=== PATIENT | female | born 1945 | race Caucasian/White ===

== ENCOUNTER 2016-07-20 15:21 | Inpatient (IN) | payer OTHER, MEDICARE ==
[2016-07-20] MEDS ORDERED: Aspirin Low Dose CHEW TAB* 81 MG PO ONE (16:25)
[2016-07-20 16:32] LABS: Hematocrit 42 % (35-47); Hemoglobin 13.8 g/dl (12.0-16.0); Mean Corpuscular HGB Conc 33 g/dl (31-36); Mean Corpuscular Hemoglobin 28 pg (27-31); Mean Corpuscular Volume 84 fL (80-97); Mean Platelet Volume 9 um3 (7.4-10.4); Red Blood Count 5.03 10^6/ul (4.0-5.4); Red Cell Distribution Width 14 % (10.5-15); White Blood Count 9.5 10^3/ul (3.5-10.8)
[2016-07-20 16:44] LABS: Albumin 4.2 g/dL (3.2-5.2); BUN/Creatinine Ratio 17.4 (8-20); Calcium 9.4 mg/dL (8.6-10.3); EGFR African American 84.1 (>60); EGFR Non-African American 65.4 (>60); Globulin 2.5 g/dL (2-4); Total Bilirubin 0.3 mg/dL (0.2-1.0); Total Protein 6.7 g/dL (6.4-8.9)
[2016-07-20 16:52] LABS: Potassium 3.6 mmol/L (3.5-5.0)
[2016-07-20 16:53] LABS: TSH (Thyroid Stimulating Horm) 1.66 mcIU/mL (0.34-5.60); Troponin I 0.06 ng/mL (<0.04)
--- NOTE | 2016-07-20 16:58 | RAD ---
HISTORY: Chest pain COMPARISONS: August 04, 2015 VIEWS:1: Single frontal portable view of the chest at 4:44 PM FINDINGS: LINES AND TUBES: None. CARDIOMEDIASTINAL SILHOUETTE: The cardiomediastinal silhouette is normal for portable technique. PLEURA: The costophrenic angles are sharp. No pleural abnormalities are noted. LUNG PARENCHYMA: There is hyperinflation. ABDOMEN: The upper abdomen is clear. There is no subphrenic gas. BONES AND SOFT TISSUES: No bone or soft tissue abnormalities are noted. IMPRESSION: NO ACTIVE CARDIOPULMONARY DISEASE.
[2016-07-20] MEDS ORDERED: Heparin DRIP 25,000 UNITS(*) 25,000 UNITS/500 ML BAG IVPB SCH (17:00)
[2016-07-20] MEDS ORDERED: Heparin VIAL(*) 5000 UNITS/ML VIAL (FIVE THOUSAND) IV SCH (17:00)
[2016-07-20] MEDS ORDERED: Nitroglycerin TAB 0.4 MG* 0.4 MG TAB SL ONE (17:16)
[2016-07-20] MEDS ORDERED: NS 0.9% 1000 ML* 1,000 ML IV ONE (17:17)
[2016-07-20] MEDS: Morphine INJ* 2 MG/ML 1 ML CARPUJECT IV PRN ×2 (18:16→23:32)
[2016-07-20] MEDS ORDERED: Nitroglycerin TAB 0.4 MG* 0.4 MG TAB SL PRN (18:22)
[2016-07-20] MEDS ORDERED: Metoprolol Tartrate TAB* 25 MG PO ONE (18:31)
[2016-07-20] MEDS ORDERED: diPHENhydraMINE PO* 25 MG PO PRN (18:43)
[2016-07-20] MEDS ORDERED: ALPRAZolam TAB* 0.5 MG PO ONE (18:51)
[2016-07-20 19:40] LABS: Troponin I 0.06 ng/mL (<0.04)
--- NOTE | 2016-07-20 21:18 | HP ---
CC: Dr. Canas HISTORY AND PHYSICAL: DATE OF ADMISSION: 07/20/16 PRIMARY CARE PHYSICIAN: Dr. Canas. CHIEF COMPLAINT: Chest pain. HISTORY OF PRESENT ILLNESS: Ms. Louie is a 71-year-old female with a past medical history of GERD, asthma, anxiety, and depression who presents to the hospital with acute onset chest pain. The patie nt states she was in her normal state of physical health aside from some significant fatigue this mo rning and then around 3:15 p.m. had acute onset of chest pain. She states that she was at home and had finished a movie and got up to go outside to drive to her daughter's house. On the way of walki ng to the car, she felt sharp chest pain in the middle of her chest that radiated to the back. She attempted to drive to her daughter's house anyway and then she reported feeling nauseous and then so me blurry vision and just an overall weakness. She decided at that point to airplane coverer on the side o f the road. She called her younger daughter and then decided to drive herself to the emergency depa rtment. The patient denies diaphoresis; however, the nurse who saw her on admission states she was diaphoretic. She has had no emesis. She denies any shortness of breath, but feels that she has dif ficulty taking a deep breath because of the chest tightness. She states that she continues to have chest pain at present and also feels that her chest is very tight like a corset is being tightened. The chest pain is not reproducible and she cannot think of any alleviating or aggravating factors. She denies any recent fever, chills, abdominal pain, diarrhea, constipation, dysuria, cough, hematu flip, or bright red blood per rectum. She is a former smoker, still smokes e-cigarettes and her formerly [facility] er had a history of CAD and at the age of 74. The patient and her daughter volunteered the fac t that she has been under significant amount of new stress lately, as she just got fired from her [employer] of 20 plus years just 2 days ago. The patient also states she has significant stress at home as h er is an alcoholic and something happened this morning that was the reason she wanted to get out of the house. PAST MEDICAL HISTORY: 1. GERD. 2. Asthma. 3. Depression. 4. Anxiety. PAST SURGICAL HISTORY: 1. Acoustic neuroma resection. 2. Rotator cuff surgery. 3. Wrist surgery. 4. Knee surgery. HOME MEDICATIONS: 1. Xanax 0.25 mg by mouth daily. 2. Protonix 40 mg by mouth daily. 3. Sertraline 150 mg by mouth daily. ALLERGIES: OXYCODONE causes itching. FAMILY HISTORY: Significant for mother with cancer, father with CAD, sister with brain tumors. SOCIAL HISTORY: The patient has a [id number] smoking history. Now, just smokes e-cigarettes afte r quitting smoking tobacco 5 years ago. Rare alcohol use. Denies any illicit drug use. REVIEW OF SYSTEMS: A 12-point review of systems negative except for that as noted in the HPI. PHYSICAL EXAMINATION GENERAL: The patient is a middle-aged female lying in bed in moderate distress. VITAL SIGNS: On admission, temperature 98.9, heart rate of 88, respiratory rate of 18, O2 saturatio n 98% on room air, blood pressure 150/80 with subsequent pressures a bit lower. HEENT: Pupils equal, round, reactive to light and accommodation. Anicteric sclerae. Moist mucous membranes. NECK: No cervical adenopathy. CHEST: The patient had some mild rales in the bilateral bases. Otherwise clear. CARDIOVASCULAR: Regular rate and rhythm. S1 and S2 present. No murmurs, gallops, or rubs. The ciera villanueva does report some chest pain on palpation; however, this is separate from the chest pain she lynne s been experiencing. ABDOMEN: Soft, nontender, nondistended. Bowel sounds positive. EXTREMITIES: No cyanosis, clubbing, or edema. NEUROLOGIC: The patient is alert and oriented x3. Cranial nerves II through XII grossly intact. S ensation symmetric throughout bilaterally. The patient seems to have some mild weakness in the lowe r extremities, particularly hip flexors and hip extensors, although that seemed to be comparable in both legs. LABS AND DIAGNOSTICS: White blood cell count is 9.5, hematocrit of 42, platelets of 262. D-dimer was less than 200. Sodium 139, potassium of 3.6, chloride of 106, carbon dioxide of 25, BUN of 15, creatinine of 0.86, glucose of 122, lactic acid of 1.3, calcium of 9.4. LFTs within normal limits. Troponin of 0.06. CK of 41, CK- MB of 1.8, TSH of 1.66. EKG personally reviewed, did not appreciate any acute signs of ischemia. Sinus rhythm. Chest x-ray personally reviewed shows no acute disease. No widening of the mediastinum that I appre ciate. ASSESSMENT AND PLAN: Chest pain in a 71-year-old female with a past medical history of gastroesopha geal reflux disease, asthma, anxiety, and depression. 1. Chest pain: The patient received nitro x1 here in the emergency department without resolution o f her chest pain. I will write her for IV morphine and we will give another nitro. We will recheck an EKG now. I have added on CK and CK-MB, as noted above that are normal. We will continue to anisha nd the patient's troponins and monitor on telemetry. She was started on a heparin drip, which we wi ll continue for now. We will also start a beta josh. She received full-dose aspirin as well. W e will continue baby aspirin daily for now. With the pain radiating to the back, it brings us the p ossibility of acute aortic dissection; however, the patient has not been hypertensive. Her blood pr essures in both arms are comparable. She has a negative D-dimer and no widened mediastinum on chest x-ray. We will hold off on a CTA for now. This could potentially be pericarditis as well and also could just be stress induced as the patient seems to have significant amount of stress going on in her life and she says she is prone to anxiety attacks in the past; however, they are not normally li ke this. 2. Gastroesophageal reflux disease: Continue home Protonix. 3. Anxiety and depression: Continue home sertraline and Xanax. 4. DVT prophylaxis: IV heparin. 5. Code status: The patient is a full code. TIME SPENT: Total time spent on this admission, 55 minutes with over half the time spent face-to-fa ce with the patient in counseling and coordinating care. [id number]/[facility] #: [id number]
--- NOTE | 2016-07-20 23:26 | ED ---
Soha Aguiar Anna, scribed for Jaylen Chisholm MD on 07/20/16 at 1614 . HPI Chest Pain - HPI Summary HPI Summary: Patient is a 71 y/o female coming to [facility] presenting with sudden onset of right -sided chest pain that began today at 1500. The pain radiates to her neck and back on the right side. She was at rest at the onset of the symptoms. She has additionally experienced bilateral blurry vision, weakness, dry mouth, and nausea that began at the same time. The patient describes the chest pain as if being hit in the chest and of severity 8/10. She expresses SOB as a result of the chest tightness. The pain is exacerbated by sitting, which was not the case at the onset of the pain. It is also exacerbated by palpation. She denies emesis. The weakness was exacerbated when she walked from her car. Her history is significant for GERD and panic attacks, but these symptoms are not consistent with her previous diagnoses. - History of Current Complaint Chief Complaint: EDChestPainROMI Time Seen by Provider: 07/20/16 15:51 Hx Obtained From: Patient Pain Intensity: 8 Pain Scale Used: 0-10 Numeric - Allergy/Home Medications Allergies/Adverse Reactions: Allergies Allergy/AdvReac Type Severity Reaction Status Date / Time Oxycodone [From Oxycontin] Allergy SEVERE Verified 08/04/15 09:49 ITCHING Home Medications: Home Medications Sertraline* [Zoloft*] 150 mg PO DAILY 07/20/16 [History Confirmed 07/20/16] PMH/Surg Hx/FS Hx/Imm Hx Endocrine/Hematology History: Denies: Hx Anticoagulant Therapy, Hx Diabetes, Hx Thyroid Disease Cardiovascular History: Denies: Hx Hypertension, Hx Pacemaker/ICD, Other Cardiovascular Problems/ Disorders Respiratory History: Reports: Hx Asthma - PRN INHALER Denies: Hx Chronic Obstructive Pulmonary Disease (COPD), Other Respiratory Problems/Disorders GI History: Reports: Hx Gastroesophageal Reflux Disease Denies: Other GI Disorders History: Denies: Hx Renal Disease Musculoskeletal History: Reports: Hx Arthritis - LOWER BACK AND KNEES Sensory History: Denies: Hx Contacts or Glasses, 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 FOR ACOUSTIC NEUROMA. [facility] NE[facility]OMA REMOVED[place] [place]. 08/13/13 RT WRIST FRACTURE REPAIR WITH METAL. 12/29/13 - Rt RTC REPAIR Hx Anesthesia Reactions: No - Immunization History Date of Tetanus Vaccine: up to date Infectious Disease History: No Infectious Disease History: Denies: Hx Hepatitis, Hx Human Immunodeficiency Virus (HIV), Traveled Outside the [place] in Last 30 Days - Family History Known Family History: Positive: Cardiac Disease - Hx in father, Other - Hx peritoneal CA in mother - Social History Alcohol Use: Rare Alcohol Amount: 1-2 PER MONTH Substance Use Type: Reports: None Hx Tobacco Use: Yes - Uses "E-cigarette" Smoking Status (MU): Smoker, Current Status Unknown Type: eCigarettes Amount Used/How Often: 1/2-3/4 PPDX 30 YEARS OFF AND ON Have You Smoked in the Last Year: No Review of Systems Positive: Blurred Vision ENT: Other - dry mouth Positive: Chest Pain Positive: Shortness Of Breath - as a result of tightness in chest Positive: Nausea. Negative: Vomiting Positive: Weakness All Other Systems Reviewed And Are Negative: Yes Physical Exam Triage Information Reviewed: Yes Vital Signs On Initial Exam: Initial Vitals Temp Pulse Resp BP Pulse Ox 98.9 F 88 18 150/80 98 07/20/16 15:23 07/20/16 15:23 07/20/16 15:23 07/20/16 15:23 07/20/16 15:23 Vital Signs Reviewed: Yes Appearance: Positive: Well-Appearing, No Pain Distress Skin: Positive: Warm, Skin Color Reflects Adequate Perfusion, Dry Head/Face: Positive: Normal Head/Face Inspection Eyes: Positive: Normal ENT: Positive: Normal ENT inspection Neck: Positive: Supple, Nontender Respiratory/Lung Sounds: Positive: Clear to Auscultation, Breath Sounds Present Cardiovascular: Positive: RRR Abdomen Description: Positive: Nontender, Soft Bowel Sounds: Positive: Present Musculoskeletal: Positive: Normal Neurological: Positive: Normal Psychiatric: Positive: Anxious - [place] Coma Scale Coma Scale Total: 15 Diagnostics - Vital Signs Vital Signs Temp Pulse Resp BP Pulse Ox 07/20/16 15:23 98.9 F 88 18 150/80 98 - Laboratory Lab Results: Lab Results 07/20/16 07/20/16 07/20/16 Range/Units 15:37 15:37 15:37 WBC 9.5 (3.5-10.8) 10^3/ul RBC 5.03 (4.0-5.4) 10^6/ul Hgb 13.8 (12.0-16.0) g/dl Hct 42 (35-47) % MCV 84 (80-97) fL MCH 28 (27-31) pg MCHC 33 (31-36) g/dl RDW 14 (10.5-15) % Plt Count 262 (150-450) 10^3/ul MPV 9 (7.4-10.4) um3 Neut % (Auto) 53.0 (38-83) % Lymph % (Auto) 37.3 (25-47) % [place] % (Auto) 7.2 (1-9) % Eos % (Auto) 1.3 (0-6) % Baso % (Auto) 1.2 (0-2) % Absolute Neuts (auto) 5.0 (1.5-7.7) 10^3/ul Absolute Lymphs (auto) 3.5 (1.0-4.8) 10^3/ul Absolute Monos (auto) 0.7 (0-0.8) 10^3/ul Absolute Eos (auto) 0.1 (0-0.6) 10^3/ul Absolute Basos (auto) 0.1 (0-0.2) 10^3/ul Absolute Nucleated RBC 0.02 10^3/ul Nucleated RBC % 0.2 APTT 30.7 (26.0-36.3) seconds D-Dimer, Quantitative < 200 (Less Than 230) ng/mL Sodium 139 (133-145) mmol/L Potassium 3.6 (3.5-5.0) mmol/L Chloride 106 (101-111) mmol/L Carbon Dioxide 25 (22-32) mmol/L Anion Gap 8 (2-11) mmol/L BUN 15 (6-24) mg/dL Creatinine 0.86 (0.51-0.95) mg/dL Est GFR ( Amer) 84.1 (>60) Est GFR (Non-Af Amer) 65.4 (>60) BUN/Creatinine Ratio 17.4 (8-20) Glucose 122 H (70-100) mg/dL Lactic Acid (0.5-2.0) mmol/L Calcium 9.4 (8.6-10.3) mg/dL Total Bilirubin 0.30 (0.2-1.0) mg/dL AST 17 (13-39) U/L ALT 13 (7-52) U/L Alkaline Phosphatase 83 (34-104) U/L Total Creatine Kinase 41 (10-223) U/L CK-MB (CK-2) 1.8 (0.6-6.3) ng/mL Troponin I 0.06 H* (<0.04) ng/mL Total Protein 6.7 (6.4-8.9) g/dL Albumin 4.2 (3.2-5.2) g/dL Globulin 2.5 (2-4) g/dL Albumin/Globulin Ratio 1.7 (1-3) TSH 1.66 (0.34-5.60) mcIU/mL 07/20/16 Range/Units 15:37 WBC (3.5-10.8) 10^3/ul RBC (4.0-5.4) 10^6/ul Hgb (12.0-16.0) g/dl Hct (35-47) % MCV (80-97) fL MCH (27-31) pg MCHC (31-36) g/dl RDW (10.5-15) % Plt Count (150-450) 10^3/ul MPV (7.4-10.4) um3 Neut % (Auto) (38-83) % Lymph % (Auto) (25-47) % [place] % (Auto) (1-9) % Eos % (Auto) (0-6) % Baso % (Auto) (0-2) % Absolute Neuts (auto) (1.5-7.7) 10^3/ul Absolute Lymphs (auto) (1.0-4.8) 10^3/ul Absolute Monos (auto) (0-0.8) 10^3/ul Absolute Eos (auto) (0-0.6) 10^3/ul Absolute Basos (auto) (0-0.2) 10^3/ul Absolute Nucleated RBC 10^3/ul Nucleated RBC % APTT (26.0-36.3) seconds D-Dimer, Quantitative (Less Than 230) ng/mL Sodium (133-145) mmol/L Potassium (3.5-5.0) mmol/L Chloride (101-111) mmol/L Carbon Dioxide (22-32) mmol/L Anion Gap (2-11) mmol/L BUN (6-24) mg/dL Creatinine (0.51-0.95) mg/dL Est GFR ( Amer) (>60) Est GFR (Non-Af Amer) (>60) BUN/Creatinine Ratio (8-20) Glucose (70-100) mg/dL Lactic Acid 1.3 (0.5-2.0) mmol/L Calcium (8.6-10.3) mg/dL Total Bilirubin (0.2-1.0) mg/dL AST (13-39) U/L ALT (7-52) U/L Alkaline Phosphatase (34-104) U/L Total Creatine Kinase (10-223) U/L CK-MB (CK-2) (0.6-6.3) ng/mL Troponin I (<0.04) ng/mL Total Protein (6.4-8.9) g/dL Albumin (3.2-5.2) g/dL Globulin (2-4) g/dL Albumin/Globulin Ratio (1-3) TSH (0.34-5.60) mcIU/mL Result Diagrams: 07/20/16 15:37 07/20/16 17:08 Lab Statement: Any lab studies that have been ordered have been reviewed, and results considered in the medical decision making process. - Radiology CXR Xray Interpretation: No Acute Changes Radiology Interpretation Completed By: Radiologist - EKG 1527 Cardiac Rate: NL - 76 bpm EKG Rhythm: Sinus Rhythm Ectopy: None EKG Comparison: No Significant Change - compared to 08/04/2015 Re-Evaluation - Re-Evaluation First Eval Re-Evaluation Time: 16:55 Change: Unchanged Comment: Patient reports she is still experiencing chest pain. Chest Pain Course/Dx - Course Assessment/Plan: Patient is a 71 y/o female coming to [facility] presenting with sudden onset of right-sided chest pain that began today at 1500. The pain radiates to her neck and back on the right side. She was at rest at the onset of the symptoms. She has additionally experienced bilateral blurry vision, weakness, dry mouth, and nausea that began at the same time. The patient describes the chest pain as if being hit in the chest and of severity 8/10. She expresses SOB as a result of the chest tightness. The pain is exacerbated by sitting, which was not the case at the onset of the pain. It is also exacerbated by palpation. She denies emesis. The weakness was exacerbated when she walked from her car. Her history is significant for GERD and panic attacks, but these symptoms are not consistent with her previous diagnoses. Labs reveal a troponin of 0.06. CXR reveals no active disease. EKG reveals NSR at 76 bpm, no changes from 08/04/2015. Discussed with Dr. Duckworth, and patient will be admitted. - Diagnoses Provider Diagnoses: CHEST PAIN - Provider Notifications Discussed Care Of Patient With: Dr. Duckworth (hospitalist) at 1701. Agrees to accept patient for admission. Dr. Juarez (agency recruiter) at 1714. Discussed care in the ED course. Discharge - Discharge Plan Condition: Stable Disposition: ADMITTED TO [facility] The documentation as recorded by the Soha wheatley Anna accurately reflects the service I personally performed and the decisions made by me, Jaylen Chisholm MD.
[2016-07-21] MEDS: Omeprazole CAP* 20 MG PO SCH (05:33)
[2016-07-21] MEDS: Morphine INJ* 2 MG/ML 1 ML CARPUJECT IV PRN ×2 (05:48→10:13)
[2016-07-21] MEDS ORDERED: Metoprolol Tartrate TAB* 25 MG PO SCH (08:00)
[2016-07-21] MEDS ORDERED: Ibuprofen TAB* 600 MG PO ONE (08:51)
[2016-07-21] MEDS ORDERED: Aspirin EC Low Dose* 81 MG TAB.EC PO SCH (09:00)
[2016-07-21] MEDS: ALPRAZolam TAB* 0.25 MG PO SCH (09:09)
[2016-07-21] MEDS: Sertraline* 50 MG TAB PO SCH (09:10)
[2016-07-21] MEDS ORDERED: Iohexol 350* (CONTRAST) 500 ML MDV IV ONE (10:31)
--- NOTE | 2016-07-21 11:23 | RAD ---
HISTORY: Chest pain, evaluate for aortic dissection COMPARISONS: CT of the chest dated May 29, 2007 TECHNIQUE: Multiple contiguous axial CT scans were obtained of the chest and abdomen after the administration of intravenous contrast. Coronal and sagittal multiplanar reformations are submitted for review.. 3-D volumetric reconstructions of the aorta are also submitted for review. FINDINGS: CHEST NECK AND THYROID: The lower neck and thyroid are unremarkable. CHEST WALL: There is no lower cervical, axillary, or supraclavicular lymphadenopathy by size criteria. HEART AND PERICARDIUM: The heart is unremarkable. AORTA AND PULMONARY VASCULATURE: There is no pulmonary arterial filling defect to suggest pulmonary aneurysm. The aorta is slightly tortuous. There is no aneurysmal dilatation or dissection flap. There is no periaortic hematoma. MEDIASTINUM: There is no mediastinal lymphadenopathy by size criteria. There is a small amount of low attenuation fluid consistent with simple fluid and the superior pericardial recess BIANCA: The kidneys AIRWAY AND ESOPHAGUS: The airway is unremarkable, without endobronchial filling defect. The esophagus is grossly normal. LUNG PARENCHYMA: There is minimal linear atelectasis of the right lung base PLEURA: No pleural abnormalities are noted. BONES AND SOFT TISSUES: Degenerative changes are noted of the spine ABDOMEN/PELVIS: LIVER: The liver is normal in shape, size, contour, and attenuation. BILE DUCTS: There is no intrahepatic or extrahepatic biliary dilatation. GALLBLADDER: The gallbladder is normal, without pericholecystic inflammatory change. PANCREAS: The pancreas is normal, without mass or ductal dilatation. SPLEEN: Normal in size and appearance. UPPER GI TRACT: Evaluation of the gastrointestinal tract is limited by incomplete gastric distention. The upper GI tract is unremarkable. SMALL BOWEL \T\ MESENTERY: The small bowel is normal in contour, course, and caliber. There is no obstruction or dilatation. COLON: The colon is normal in contour, course, caliber. There is no pericolonic inflammatory change. ADRENALS: Normal bilaterally. KIDNEYS: There is a simple cyst of the midpole of the left kidney. There is no appreciable hydronephrosis or nephrolithiasis. AORTA: There is mild atheromatous plaque without aneurysmal dilatation or dissection flap IVC: Unremarkable LYMPH NODES: There is no lymphadenopathy by size criteria. ABDOMINAL WALL: There is no evidence for abdominal wall hernia. BONES: Degenerative changes are noted of the spine OTHER: None IMPRESSION: 1. NO AORTIC ANEURYSM OR DISSECTION FLAP. 2. MINIMAL LINEAR ATELECTASIS OF THE RIGHT LUNG BASE. 3. NO ACUTE CT PATHOLOGY OF THE VISUALIZED CHEST OR ABDOMEN
[2016-07-21 11:33] LABS: Hematocrit 38 % (35-47); Hemoglobin 12.3 g/dl (12.0-16.0); Mean Corpuscular HGB Conc 33 g/dl (31-36); Mean Corpuscular Hemoglobin 28 pg (27-31); Mean Corpuscular Volume 84 fL (80-97); Mean Platelet Volume 8 um3 (7.4-10.4); Red Blood Count 4.47 10^6/ul (4.0-5.4); Red Cell Distribution Width 14 % (10.5-15); White Blood Count 6.3 10^3/ul (3.5-10.8)
--- NOTE | 2016-07-21 11:43 | PN ---
Subjective Date of Service: 07/21/16 Interval History: Patient seen this morning. Reports she initially felt better this morning around 4 AM, chest pain was minimal but sensation of "restriction" was still present, however it recurred again later. Says it radiates to the back and to the R arm. Also now reporting some numbness in the L side of the face. Blurry vision was improved this morning but recurred again later. Says she is scared. Family History: Unchanged from Admission Social History: Unchanged from Admission Past Medical History: Unchanged from Admission Objective Active Medications: Alprazolam (Xanax Tab*) 0.25 mg PO DAILY ISSA Aspirin (Aspirin Ec Low Dose*) 81 mg PO DAILY ISSA Diphenhydramine HCl (Benadryl Po*) 25 mg PO Q4H PRN Iohexol (Omnipaque 350 (Contrast)-) 100 ml IV ONCE ISSA Morphine Sulfate (Morphine Inj (Syringe)*) 2 mg IV Q4H PRN Nitroglycerin (Nitroglycerin Tab 0.4 Mg*) 0.4 mg SL Q5M PRN Omeprazole (Prilosec Cap*) 20 mg PO DAILY@0600 [facility] Sertraline HCl (Zoloft*) 150 mg PO DAILY [facility] Vital Signs 07/20/16 07/20/16 07/20/16 17:30 18:00 18:02 Temperature 97.9 F Pulse Rate 68 71 Respiratory 17 14 20 Rate Blood Pressure 112/54 110/62 (mmHg) O2 Sat by Pulse 97 Oximetry 07/21/16 07/21/16 07/21/16 00:23 00:32 04:13 Temperature 97.8 F 97.8 F Pulse Rate 56 55 Respiratory 16 18 16 Rate Blood Pressure 115/60 103/66 (mmHg) O2 Sat by Pulse 96 96 Oximetry 07/21/16 07/21/16 07/21/16 05:39 05:48 06:48 Temperature Pulse Rate 55 Respiratory 18 20 Rate Blood Pressure 104/56 (mmHg) O2 Sat by Pulse 98 Oximetry 07/21/16 07/21/16 07/21/16 07:38 08:00 09:09 Temperature 97.9 F Pulse Rate 56 Respiratory 16 20 14 Rate Blood Pressure 112/56 (mmHg) O2 Sat by Pulse 97 Oximetry 07/21/16 07/21/16 09:58 10:13 Temperature 97.9 F Pulse Rate 58 Respiratory 16 20 Rate Blood Pressure 128/60 (mmHg) O2 Sat by Pulse 99 Oximetry Oxygen Devices in Use Now: None Appearance: Middle-aged, F, laying in bed in NAD Eyes: No Scleral Icterus Ears/Nose/Mouth/Throat: Mucous Membranes Moist Neck: NL Appearance and Movements; NL JVP Respiratory: Symmetrical Chest Expansion and Respiratory Effort, Clear to Auscultation Cardiovascular: NL Sounds; No Murmurs; No JVD, RRR, - - sternum TTP Abdominal: NL Sounds; No Tenderness; No Distention Lymphatic: No Cervical Adenopathy Extremities: No Edema Skin: No Rash or Ulcers Neurological: Alert and Oriented x 3, - - Denies any sensory changes in face on exam, strength symmetric, no sensory level Result Diagrams: 07/21/16 11:25 07/20/16 17:08 Assess/Plan/Problems-Billing Assessment: Chest pain radiating to the back and arm, numbness, blurry vision in a 71 yo F with hx of anxiety, GERD, depression and recent increase in life stressors - Patient Problems (1) Chest pain Current Visit: Yes Comment: Troponins maintained at 0.06 or less, CKs never elevated. EKG not convincing for ischemia. Stopped heparin gtt. CTA to r/o dissection although this seems unlikely. Seems atypical for pericarditis but will trial NSAID. Will ask neurology to see with complaints of band-like sensation and facial numbness. It is possible this is stress induced but need to r/o other causes. (2) GERD (gastroesophageal reflux disease) Current Visit: Yes Comment: Continue PPI (3) Anxiety Current Visit: Yes Comment: depression. Continue Sertraline and Xanax. (4) DVT prophylaxis Current Visit: Yes Comment: Lovenox SQ
[2016-07-21] MEDS ORDERED: Iohexol 350* (CONTRAST) 500 ML MDV IV SCH (12:00)
[2016-07-21] MEDS: Enoxaparin(*) 40 MG/0.4 ML SYR SUBCUT SCH (12:29)
[2016-07-21] MEDS ORDERED: Ibuprofen TAB* 400 MG PO PRN (16:19)
[2016-07-21] MEDS: Morphine ORAL.SOLN 10 mg* 2 MG/ML UDC 5 ml PO PRN (17:54)
--- NOTE | 2016-07-21 20:46 | CONS ---
NEUROLOGY CONSULT: DATE OF CONSULT: 07/21/16 PRIMARY CARE PHYSICIAN: Dr. Priscila Leigh. REQUESTING PHYSICIAN: Dr. Newton. REASON FOR CONSULT: Left-sided face numbness. HISTORY OF PRESENT ILLNESS: The patient is a 71-year-old right-handed female, who presented to the hospital on 07/20/16 with acute onset of chest pain. She mentioned that she felt tightness in the midchest area especially when she woke up in the morning of 07/20/16. She also felt nauseous with some blurry vision and overall weakness. That is when she called her daughter and then, was brought to the hospital. She says she had difficulty in getting out of the car when she arrived at the ED. The patient has been worked up for cardiac and vascular causes of her chest pain and so far, a workup including a CT angiogram of the chest has been negative for aortic dissection or cardiac ischemia. She around 8 a.m. today felt left side of her face suddenly felt "cold" and "numb" but since then, it has becoming slightly better, but not completely. She denies any particularly blurred vision, double vision, numbness, or weakness in the arms and legs, or dysarthria. She occasionally reports "floating" in front of her eyes. I was asked to see the patient after 11 a.m. this morning and I saw the patient shortly after, probably around 11:30 a.m. Have to mention that a couple of days ago, the patient has lost her job of 20+ years and has been very stressed as a result. In addition, she does have history of anxiety and depression. PAST MEDICAL HISTORY: Significant for: 1. GERD. 2. Asthma. 3. Depression and anxiety. 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 5. Migraine headaches that currently do not happen more than once almost every year, but used to be frequent before. She found that this was mostly triggered by the perfume she was wearing and since she has stopped wearing perfumes, she is not experiencing headaches anymore or to a much less frequency. Previously, the headaches were characterized by pain in the retro-ocular regions and seeing "floaters" in front of her eyes, and then pain spreading to the rest of the head. PAST SURGICAL HISTORY: 1. Removal of acoustic neuroma in the left side with resultant loss of hearing on that side; that was more than 20 years ago. 2. Rotator cuff surgery on the right shoulder. 3. Knee and wrist surgery. MEDICATIONS: Home medications include: 1. Zoloft 150 mg p.o. daily. 2. Protonix 40 mg p.o. daily. 3. Xanax 0.25 mg p.o. daily. Medications in the hospital include, other than what mentioned above,: 1. Morphine 2 mg q.4 hours p.r.n. 2. Benadryl. 3. Lovenox 40 mg subcutaneous q.24 hours. ALLERGIES: To OXYCODONE. FAMILY HISTORY: Mother had a history of cancer. Father had a history of coronary artery disease and history of brain tumor in sister. SOCIAL HISTORY: The patient has a [id number] history of smoking and now just smokes e-cigarettes. She quit smoking about 5 years ago. She rarely uses alcohol. There is no history of illicit drug use. REVIEW OF SYSTEMS: Complete review of systems was performed and other than chest pain and neurological symptoms as mentioned above is negative. PHYSICAL EXAM: Blood pressure is 128/60, temperature 97.9, pulse 58, respiratory rate 16, O2 sat 99% on room air. The patient is not in acute distress, but sometimes feels anxious or reports shortness of breath when moving. The patient is awake, alert, and oriented x3. Pupils are symmetric and reactive to light. Visual hillman are intact to confrontation. Extraocular movements are intact. There is no nystagmus. Tongue is in midline. Palate elevates upwards. Face is symmetric. Hearing is absent on the left ear (old). Nasolabial folds are symmetric. V1 to V3 are intact to all modalities on the right side. On the left side, V2 is intact, but V1 and V3 are slightly decreased on the left side only to pinprick. Light touch and temperature are intact in V1 to V3 on the left side. Strength is 5/5 throughout. There is no pronator drift. Sensation is intact to light touch, pinprick, and temperature in the upper and lower extremities. Rapid alternating movements are intact bilaterally. Goshav-gb-pcvy is intact bilaterally. Gait is narrow based and steady but slightly cautious as the patient feels dizzy when she stands up. Romberg is negative. DIAGNOSTIC STUDIES/LAB DATA: WBC 6.3, hemoglobin 12.3, hematocrit 38, platelets 198. PTT of 30.1. Sodium is 139, potassium of 3.6, BUN 15, creatinine 0.86, AST 17, ALT 13, alkaline phosphatase 83. Troponin 0.06. CK 1.8. The trend of troponin has been down to 0.0. ASSESSMENT AND PLAN: A 71-year-old female with history of sudden onset of chest pain, whose workup has been negative for etiology of the chest pain. She developed sudden onset of feeling cold on the left side of the face and decreased sensation since 8 a.m. this morning. Neurological exam is only significant for decrease to pinprick only (and not to light touch or temperature ) in V1 and V3 distribution on the left side and V2 is spared. The above findings are not suggestive of a central involvement of the cranial nerves. Therefore, the likelihood of this being a central process such as vascular event. At this time, considering the patient's history of acoustic neuroma, we will consider an MRI of the brain with and without contrast to rule out recurrence of the schwannoma which can place pressure on cranial nerve V on its course. However, even if that would be the case I am not sure why the onset of her symptoms were sudden now. Other differential, this might be just in the setting of hyperventilation due to anxiety, causing numbness in the distribution of the trigeminal nerve, although the numbness in these settings are usually dany-oral. CC: Dr. Priscila Leigh * [id number]/CPS #: [id number] MTDD
[2016-07-21] MEDS: Acetaminophen TAB* 325 MG PO SCH (22:44)
[2016-07-22] MEDS: Omeprazole CAP* 20 MG PO SCH (05:27)
[2016-07-22] MEDS ORDERED: Pneumococcal *Vac Polyvalent 0.5 ML VIAL IM ONE (09:00)
[2016-07-22] MEDS: Acetaminophen TAB* 325 MG PO SCH (10:01)
[2016-07-22] MEDS: Sertraline* 50 MG TAB PO SCH (10:01)
[2016-07-22] MEDS: ALPRAZolam TAB* 0.25 MG PO SCH (10:02)
[2016-07-22 11:07] LABS: BUN/Creatinine Ratio 16.7 (8-20); Calcium 9.3 mg/dL (8.6-10.3); EGFR African American 94.2 (>60); EGFR Non-African American 73.2 (>60); Potassium 4.6 mmol/L (3.5-5.0)
--- NOTE | 2016-07-22 13:14 | RAD ---
HISTORY: Numbness and left-sided face, history of acoustic neuroma COMPARISONS: None relevant available at the time of dictation TECHNIQUE: The following sequences were obtained of the head: Sagittal T1-weighted images, axial T2-weighted images, axial FLAIR images, axial susceptibility weighted images, axial T1-weighted images. Axial and coronal thin section T1-weighted images and axial thin section T2-weighted images were obtained through the level of the internal auditory canals. Additionally, axial diffusion-weighted images were obtained with calculated apparent diffusion coefficients. FINDINGS: HEMORRHAGE/INFARCT: There is no hemorrhage or acute infarct. MASSES/SHIFT: There is no mass or shift. EXTRA-AXIAL SPACES/MENINGES: There are no extra-axial fluid collections. SULCI AND VENTRICLES: The sulci and ventricles are normal in size and position for the patient's stated age. CEREBRUM: There are multiple scattered small foci of elevated T2/FLAIR signal within the periventricular and subcortical white matter. BRAINSTEM: There are no focal parenchymal abnormalities. CEREBELLUM: There are no focal parenchymal abnormalities. The cerebellar tonsils are normal in size and position. SELLA: The sella is normal. PINEAL: The pineal region is clear. CP ANGLE/TEMPORAL BONES: There is postsurgical change to the left temporal bone with evidence of left mastoidectomy. This appears to include resection of the membranous labyrinth. The visualized portions of the 7th and 8th nerves are grossly normal, though evaluation is limited by lack of intravenous contrast VESSELS: Normal flow-voids are noted within the visualized vertebral vasculature. DIFFUSION ABNORMALITIES: There are no diffusion abnormalities. PARANASAL SINUSES/MASTOIDS: The paranasal sinuses are clear. ORBITS: The orbits are unremarkable. BONES AND SOFT TISSUE: There is post surgical change to the temporal skull OTHER: None IMPRESSION: 1. POST SURGICAL CHANGE TO THE LEFT TEMPORAL BONE WITHOUT APPRECIABLE MASS. EVALUATION FOR SMALL NEOPLASM IS LIMITED BY LACK OF INTRAVENOUS CONTRAST. 2. THERE ARE MULTIPLE FOCI OF ELEVATED T2/FLAIR SIGNAL WITHIN THE PERIVENTRICULAR AND SUBCORTICAL WHITE MATTER. WHILE THESE FINDINGS ARE NONSPECIFIC, THEY CAN BE SEEN IN ASSOCIATION WITH MIGRAINE HEADACHE, THE SEQUELA OF PREVIOUS INFECTION OR INFLAMMATION, AND CHRONIC SMALL VESSEL ISCHEMIA. DEMYELINATING DISEASE IS ALSO WITHIN THE DIFFERENTIAL, BUT IS CONSIDERED LESS LIKELY IN THE ABSENCE OF THE APPROPRIATE CLINICAL PRESENTATION.
[2016-07-22] MEDS: Morphine ORAL.SOLN 10 mg* 2 MG/ML UDC 5 ml PO PRN (13:22)
[2016-07-22] MEDS: Enoxaparin(*) 40 MG/0.4 ML SYR SUBCUT SCH (13:23)
--- NOTE | 2016-07-22 13:46 | DCNOTE ---
Patient seen after MRI. Notes that pain was resolved this morning but as she began thinking and stressing the pain returned. Told her she needs to find techniques to manage her stress. She already has an appointment with a counselor to address this and she will follow-up with Dr. Canas as well.
[2016-07-22 13:50] VITALS: BP 124/76
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
== END 2016-07-22 15:24 | disposition home or self-care (01) | DRG 313 ==
LOC: ED 15:21 → MEDTELE 17:01 → OBSVTOIN 07-21 16:17
PROVIDERS: ADMIT Hospitalist; ATTEND Hospitalist
DX: R07.89 Other chest pain (principal); F32.9 Major depressive disorder, single episode, unspecified; K21.9 Gastro-esophageal reflux disease without esophagitis; J45.909 Unspecified asthma, uncomplicated; F41.9 Anxiety disorder, unspecified; R20.0 Anesthesia of skin; Z79.899 Other long term (current) drug therapy; Z88.6 Allergy status to analgesic agent; Z87.891 Personal history of nicotine dependence; Z82.49 Family history of ischemic heart disease and other diseases of the circulatory system; Z80.9 Family history of malignant neoplasm, unspecified
CPT/HCPCS: 36415; 70551; 71010; 71275; 74175; 80048; 80053; 82550; 82553; 83605; 84443; 84484; 84520; 85025; 85379; 85730; 90732; 93005; 99406; A9270-GY; G0378; J1644; J1650; J2270; Q9967

== ENCOUNTER 2016-07-22 18:28 | Inpatient (IN) | payer OTHER, MEDICARE ==
[2016-07-22] MEDS ORDERED: Aspirin Low Dose CHEW TAB* 81 MG PO ONE (21:38)
[2016-07-22 22:28] LABS: Hematocrit 39 % (35-47); Hemoglobin 12.8 g/dl (12.0-16.0); Mean Corpuscular HGB Conc 33 g/dl (31-36); Mean Corpuscular Hemoglobin 28 pg (27-31); Mean Corpuscular Volume 84 fL (80-97); Mean Platelet Volume 8 um3 (7.4-10.4); Red Cell Distribution Width 13 % (10.5-15); White Blood Count 8.9 10^3/ul (3.5-10.8)
--- NOTE | 2016-07-22 22:41 | ED ---
Soha Aguiar Anna, scribed for Monika Fernandes MD on 07/22/16 at 2136 . HPI Chest Pain - HPI Summary HPI Summary: Patient is a 71 y/o female coming to [facility] presenting with CP that began two days ago at 1500. At that point, she additionally expressed bilateral blurry vision, weakness, dry mouth, and nausea. She was admitted to the hospital, but the studies did not reveal any acute disease. The chest pain was managed during her admission with pain medication. She was told the chest pain was stress induced and was treated with Tramadol. The patient was discharged today. Upon arriving at home, she felt severe chest pain that radiates to her jaw and down her neck and back. The severity fluctuates from 8/10 to 10/10. It is currently 6 /10. The pain is not exacerbated by palpation, change in position, or deep breaths. - History of Current Complaint Chief Complaint: EDChestPainROMI Time Seen by Provider: 07/22/16 19:12 Hx Obtained From: Patient, Family/Environmental Protection Officer - Accompanied by family Pain Intensity: 8 Pain Scale Used: 0-10 Numeric - Additional Pertinent History Primary Care Physician: LORENZO - Allergy/Home Medications Allergies/Adverse Reactions: Allergies Allergy/AdvReac Type Severity Reaction Status Date / Time Oxycodone [From Oxycontin] Allergy SEVERE Verified 07/22/16 18:34 ITCHING PMH/Surg Hx/FS Hx/Imm Hx Endocrine/Hematology History: Denies: Hx Anticoagulant Therapy, Hx Diabetes, Hx Thyroid Disease Cardiovascular History: Denies: Hx Hypertension, Hx Pacemaker/ICD, Other Cardiovascular Problems/ Disorders Respiratory History: Reports: Hx Asthma - PRN INHALER, Hx Pneumonia Denies: Hx Chronic Obstructive Pulmonary Disease (COPD), Other Respiratory Problems/Disorders GI History: Reports: Hx Gastroesophageal Reflux Disease Denies: Other GI Disorders History: Denies: Hx Renal Disease Musculoskeletal History: Reports: Hx Arthritis - LOWER BACK AND KNEES, Hx Osteoporosis Sensory History: Denies: Hx Contacts or Glasses Opthamlomology History: Denies: Hx Contacts or Glasses Neurological History: Denies: Hx Dementia, Hx Seizures, Other Neuro Impairments/Disorders Psychiatric History: Reports: Hx Anxiety - PANIC ATTACKS, Hx Depression, Hx Panic Disorder - TAKES MEDICATION FOR IT Denies: Hx Substance Abuse - Surgical History Surgery Procedure, Year, and Place: RIGHT KNEE RE[place] AND [place] [facility] [place] ACOUSTIC NEUR[place]. [place] [place]13 RT WRIST FRACTURE REPAIR WITH METAL. 12/29/13 - Rt RTC REPAIR Hx Anesthesia Reactions: No - Immunization History Date of Tetanus Vaccine: up to date Date of Influenza Vaccine: 2015 Infectious Disease History: No Infectious Disease History: Denies: Hx Hepatitis, Hx Human Immunodeficiency Virus (HIV), Traveled Outside the [place] in Last 30 Days - Family History Known Family History: Positive: Cardiac Disease - Hx in father, Other - Hx peritoneal CA in mother - Social History Lives: With Family Alcohol Use: Occasionally Alcohol Amount: 1-2 PER MONTH Substance Use Type: Reports: None Hx Tobacco Use: Yes - Uses "E-cigarette" Smoking Status (MU): Smoker, Current Status Unknown Type: eCigarettes Amount Used/How Often: 1/2-3/4 PPDX 30 YEARS OFF AND ON Length of Time of Smoking/Using Tobacco: 35 years Have You Smoked in the Last Year: No Review of Systems Positive: Blurred Vision Positive: Other - dry mouth Positive: Chest Pain Positive: Nausea Positive: Weakness All Other Systems Reviewed And Are Negative: Yes Physical Exam Triage Information Reviewed: Yes Vital Signs On Initial Exam: Initial Vitals Temp Pulse Resp BP Pulse Ox 96.8 F 65 16 156/78 100 07/22/16 18:35 07/22/16 18:35 07/22/16 18:35 07/22/16 18:35 07/22/16 18:35 Vital Signs Reviewed: Yes Appearance: Positive: Well-Appearing, No Pain Distress Skin: Positive: Warm, Skin Color Reflects Adequate Perfusion, Dry Eyes: Positive: EOMI, CLARE ENT: Positive: Pharynx normal, TMs normal Neck: Positive: Supple, Nontender Respiratory/Lung Sounds: Positive: Clear to Auscultation, Breath Sounds Present. Negative: Rales, Rhonchi, Wheezes Cardiovascular: Positive: RRR, Other - no gallops. Negative: Murmur, Rub Abdomen Description: Positive: Nontender, Soft Bowel Sounds: Positive: Present Musculoskeletal: Positive: Strength/ROM Intact. Negative: Edema Left, Edema Right Neurological: Positive: Sensory/Motor Intact, Alert, Oriented to Person Place, Time, CN Intact II-III - II-XII Psychiatric: Positive: Affect/Mood Appropriate Diagnostics - Vital Signs Vital Signs Temp Pulse Resp BP Pulse Ox 07/22/16 19:21 98 F 65 18 150/82 98 07/22/16 18:35 96.8 F 65 16 156/78 100 - Laboratory Lab Results: Lab Results 07/22/16 Range/Units 22:15 WBC 8.9 (3.5-10.8) 10^3/ul RBC 4.60 (4.0-5.4) 10^6/ul Hgb 12.8 (12.0-16.0) g/dl Hct 39 (35-47) % MCV 84 (80-97) fL MCH 28 (27-31) pg MCHC 33 (31-36) g/dl RDW 13 (10.5-15) % Plt Count 204 (150-450) 10^3/ul MPV 8 (7.4-10.4) um3 Neut % (Auto) 56.4 (38-83) % Lymph % (Auto) 32.3 (25-47) % [place] % (Auto) 8.8 (1-9) % Eos % (Auto) 1.6 (0-6) % Baso % (Auto) 0.9 (0-2) % Absolute Neuts (auto) 5.0 (1.5-7.7) 10^3/ul Absolute Lymphs (auto) 2.9 (1.0-4.8) 10^3/ul Absolute Monos (auto) 0.8 (0-0.8) 10^3/ul Absolute Eos (auto) 0.1 (0-0.6) 10^3/ul Absolute Basos (auto) 0.1 (0-0.2) 10^3/ul Absolute Nucleated RBC 0.01 10^3/ul Nucleated RBC % 0.1 Result Diagrams: 07/22/16 22:15 Lab Statement: Any lab studies that have been ordered have been reviewed, and results considered in the medical decision making process. - Radiology CXR Xray Interpretation: No Acute Changes Radiology Interpretation Completed By: Radiologist - EKG 1841 Cardiac Rate: NL - 63 bpm EKG Rhythm: Sinus Rhythm EKG Interpretation: No ST elevation. EKG Comparison: No Significant Change - Compared to EKG from 07/20/2016 Chest Pain Course/Dx - Course Course Of Treatment: Pt discharged today after an admission for cp with some neurologic symptoms. Pt got home and had severe cp, pt has risk factors of tob, cholesterolemia and early family cardiac disease. Case presented to Dr. Dunaway for observation - Diagnoses Provider Diagnoses: Chest pain - Provider Notifications Discussed Care Of Patient With: Dr. Dunaway (hospitalist) at 22:10. Agrees to accept patient for admission. Discharge - Discharge Plan Condition: Stable Disposition: ADMITTED TO [facility] Referrals: Leland Canas MD [Primary Care Provider] - The documentation as recorded by the Soha wheatley Anna accurately reflects the service I personally performed and the decisions made by me, Monika Fernandes MD.
[2016-07-22 22:43] LABS: Albumin 3.9 g/dL (3.2-5.2); BUN/Creatinine Ratio 17.6 (8-20); Calcium 9.3 mg/dL (8.6-10.3); EGFR African American 85.3 (>60); EGFR Non-African American 66.3 (>60); Globulin 2.6 g/dL (2-4); Potassium 3.9 mmol/L (3.5-5.0); Total Bilirubin 0.4 mg/dL (0.2-1.0); Total Protein 6.5 g/dL (6.4-8.9)
[2016-07-22 22:45] LABS: Troponin I 0.02 ng/mL (<0.04)
[2016-07-22] MEDS ORDERED: Ondansetron INJ* 2 MG/ML VIAL IV PRN (22:49)
[2016-07-22] MEDS ORDERED: Albuterol 2.5 MG/3 ML NEB.SOL* (0.083%) INH PRN (23:02)
--- NOTE | 2016-07-22 23:08 | RAD ---
Indication: Chest pain. Single frontal view of the chest performed at 2226 hours was reviewed. Comparison is made with previous exam dated August 04, 2015. No mediastinal shift is noted. Heart is of normal size and configuration. Lung hillman appear clear. IMPRESSION: NO ACTIVE CARDIOPULMONARY DISEASE IS NOTED.
[2016-07-22] MEDS ORDERED: HYDROcodone/ACETAMIN 5-325 MG* 1 TAB ONE (23:35)
[2016-07-22] MEDS ORDERED: ALPRAZolam TAB* 0.25 MG ONE (23:35)
[2016-07-22] MEDS: ALPRAZolam TAB* 0.25 MG PO SCH (23:41)
[2016-07-22] MEDS: HYDROcodone/ACETAMIN 5-325 MG* 1 TAB PO PRN (23:42)
--- NOTE | 2016-07-23 01:08 | HP ---
HISTORY AND PHYSICAL: DATE OF ADMISSION: 07/22/16 PRIMARY CARE PROVIDER: Dr. Canas. ATTENDING PHYSICIAN WHILE IN THE HOSPITAL: Dr. Eric Dunaway* (report dictated by Luis Peace NP) CHIEF COMPLAINT: Chest pain. HISTORY OF PRESENT ILLNESS: I will refer you to the H and P just dictated on the and discharge summary dictated today for details, but in short, Ms. Louie is a 71-year-old female patient who has a history of GERD, asthma, depression, and anxiety. She came in today after being discharged earlier this afternoon, again this evening with complaints of chest pain similar to her chest pain that she presented with on the 20 of July. She describes that pain in her chest radiating into her back. She says contraction in her chest. She states she has associated nausea. She feels short of breath and the pain started today after about an hour after taking her tramadol. She said the pain got much worse. She denied having any rash. Denied feeling shortness of breath only with associated chest discomfort. She said the pain got worse when she tried to take a deep breath. She said that she felt like the pain was a 12/ 10 and just got progressively worse and was constant in nature, so she decided to come back into the ER to be reevaluated today because her symptoms were not getting any better. She tried taking again the tramadol, did not help her, actually it made things worse. She denied any recent chills or fevers. No recent travel. She had an extensive workup done previously in a form of CTA, in addition to this she did have serial troponins and EKG, all of which were negative, but because of return of symptoms, she was evaluated here in the ER, again there was concern this chest pain may represent acute coronary artery syndrome. The hospitalist service was asked to evaluate for admission. PAST MEDICAL HISTORY: Significant for: 1. GERD. 2. Asthma. 3. Depression. 4. Anxiety. PAST SURGICAL HISTORY: She has had: 1. Acoustic neuroma resection. 2. Rotator cuff repair. 3. Wrist surgery. 4. Knee surgery. HOME MEDICATIONS: Include: 1. Tramadol 50 mg every 8 hours. 2. Xanax 0.25 mg oral daily. 3. Protonix 40 mg daily. 4. Zoloft 150 mg p.o. daily. ALLERGIES TO MEDICATIONS: Include OXYCODONE. FAMILY HISTORY: Her mother had history of cancer. Father had history of coronary artery disease and [place]. SOCIAL HISTORY: She is a former smoker. Rarely drinks alcohol. She denies any recreational drug abuse. Surrogate decision maker is her sister and her daughter. REVIEW OF SYSTEMS: There is no documented fever. She denied having any significant weight change. There was no double vision. She denies having any ear discharge. There is no rhinorrhea. There was no sore throat. No thyroid enlargement. There was chest pain from my HPI. There was no dyspnea on exertion. No shortness of breath. There was no abdominal pain, no nausea, no vomiting. No dysuria, no frequency. No loss of consciousness. No pruritus and no skin ulcerations. Review of 14 systems completed, all others negative. PHYSICAL EXAMINATION GENERAL: At this time, Ms. Louie is a 71-year-old female patient. She does not appear to be in any acute distress. She is awake and alert. She is well nourished, well developed. VITAL SIGNS: Reveal blood pressure 150/82 with a pulse 65, respirations 18, O2 sat of 98%, temperature 98. HEENT: Head atraumatic, normocephalic. Eyes: EOMs are intact. Sclerae are anicteric and not pale. Throat: Oral mucosa appears to be moist. No oropharyngeal erythema. NECK: Supple. LUNGS: Clear to auscultation bilaterally. No wheezes, rales, or rhonchi. HEART: Sounds S1, S2. Regular rate and rhythm. No murmurs, rubs, or gallops. ABDOMEN: Soft, flat, nontender. Bowel sounds present. EXTREMITIES: Pulses were 2+ throughout. Able to move all 4 extremities with 5/ 5 strength. NEUROLOGICAL: The patient is awake, alert, and oriented x3. Tongue midline. Rn Telephone Triage were equal. No gross focal deficits. SKIN: Grossly intact. DIAGNOSTIC STUDIES/LAB DATA: Labs today revealed a WBC of 8.9, RBC of 4.60, hemoglobin 12.8, hematocrit of 39, platelet count of 204. Sodium 139, potassium is 3.9, chloride of 105, bicarb 29, BUN 15, creatinine 0.85, glucose of 89, calcium of 9.3. Total bili 0.4, AST 13, ALT 11, alk phos 70. Troponins 0.02. Albumin 3.9. The EKG showed a normal sinus rhythm, rate of 63. No ST elevation or T-wave inversion. It was reviewed to the previous EKG, it is similar. Old medical records were reviewed. ASSESSMENT AND PLAN: Ms. Louie is a 71-year-old female patient coming into the ER today with complaints of chest discomfort albeit it does appear to be atypical, but she will be admitted under observation status for: 1. Chest pain. Again, at this point, her symptoms are atypical, it is reproducible making acute coronary syndrome less likely. She does have risk factors. Her father had a heart attack in his 50s. She is a former smoker and we should do a stress test, I have ordered this. I will cycle her troponins. We will get an EKG in the morning and put her on telemetry. I am going to start her on baby aspirin and I am going to put her on standing Xanax as well and for the pain, I have ordered morphine and p.r.n. hydrocodone. 2. Anxiety. She will have standing Xanax. 3. Gastroesophageal reflux disease. Continue PPI therapy. 4. Asthma. I will order p.r.n. albuterol. 5. Depression. Continue her Zoloft as prescribed. 6. DVT prophylaxis. She will be placed on heparin subcu. 7. Code status. Full code. TIME SPENT: On the admission was 60 minutes, greater than half the time was spent [id number] with the patient, the other half time was spent going over the plan of care with the patient and implementing the plan of care. I did discuss the plan of care with my attending, Dr. Dunaway; he is in agreement. LUIS PEACE NP CC: Dr. Canas* [id number]/CPS #: [id number] AVA
[2016-07-23] MEDS: Heparin VIAL(*) 5000 UNITS/ML VIAL (FIVE THOUSAND) SUBCUT SCH ×3 (05:05→21:09)
[2016-07-23 06:05] LABS: Hematocrit 38 % (35-47); Hemoglobin 12.6 g/dl (12.0-16.0); Mean Corpuscular HGB Conc 34 g/dl (31-36); Mean Corpuscular Hemoglobin 28 pg (27-31); Mean Corpuscular Volume 84 fL (80-97); Mean Platelet Volume 8 um3 (7.4-10.4); Red Blood Count 4.45 10^6/ul (4.0-5.4); Red Cell Distribution Width 13 % (10.5-15); White Blood Count 6.6 10^3/ul (3.5-10.8)
[2016-07-23 06:27] LABS: Troponin I 0.01 ng/mL (<0.04)
[2016-07-23 06:30] LABS: BUN/Creatinine Ratio 16.3 (8-20); EGFR African American 91.5 (>60); EGFR Non-African American 71.1 (>60); HDL Cholesterol 36.8 mg/dL; Potassium 4.1 mmol/L (3.5-5.0)
[2016-07-23] MEDS: Sertraline* 50 MG TAB PO SCH (08:46)
[2016-07-23] MEDS: Omeprazole CAP* 20 MG PO SCH (08:47)
[2016-07-23] MEDS: Aspirin EC Low Dose* 81 MG TAB.EC PO SCH (08:48)
[2016-07-23] MEDS: HYDROcodone/ACETAMIN 5-325 MG* 1 TAB PO PRN ×2 (08:48→13:43)
[2016-07-23] MEDS: ALPRAZolam TAB* 0.25 MG PO SCH (08:49)
[2016-07-23] MEDS: Morphine INJ* 4 MG/ML 1 ML CARPUJECT IV PRN ×2 (08:49→13:43)
[2016-07-23] MEDS ORDERED: ALPRAZolam TAB* 0.25 MG PO PRN (13:13)
--- NOTE | 2016-07-23 13:20 | PN ---
Subjective Date of Service: 07/23/16 Interval History: Patient went down for resting images this morning, study images were not good and patient had chest pain towards the end of the procedure. Improved back on the floor. She and her family are all very concerned. No further facial numbness. Family History: Unchanged from Admission Social History: Unchanged from Admission Past Medical History: Unchanged from Admission Objective Active Medications: Acetaminophen (Tylenol Tab*) 650 mg PO Q4H PRN Acetaminophen/Hydrocodone Bitart ([place]ippey 5-325 Tab*) 1 tab PO Q4H PRN Albuterol (Ventolin 2.5 Mg/3 Ml Neb.Chastity*) 2.5 mg INH Q2H PRN Alprazolam (Xanax Tab*) 0.25 mg PO DAILY ISSA Aspirin (Aspirin Ec Low Dose*) 81 mg PO DAILY ISSA Heparin Sodium (Porcine) (Heparin Vial(*)) 5,000 units SUBCUT Q8HR ISSA Morphine Sulfate (Morphine Inj (Syringe)*) 4 mg IV Q4H PRN Omeprazole (Prilosec Cap*) 20 mg PO DAILY ISSA Ondansetron HCl (Zofran Inj*) 4 mg IV Q6H PRN Sertraline HCl (Zoloft*) 150 mg PO DAILY [facility] Vital Signs 07/22/16 07/22/16 07/22/16 23:30 23:41 23:42 Temperature Pulse Rate 62 Respiratory 15 16 16 Rate Blood Pressure 119/79 (mmHg) O2 Sat by Pulse 95 Oximetry 07/23/16 07/23/16 07/23/16 01:42 03:31 07:21 Temperature 97.8 F 97.8 F Pulse Rate 57 54 Respiratory 16 16 14 Rate Blood Pressure 109/61 119/50 (mmHg) O2 Sat by Pulse 96 97 Oximetry 07/23/16 11:45 Temperature 97.6 F Pulse Rate 46 Respiratory 16 Rate Blood Pressure 112/43 (mmHg) O2 Sat by Pulse 100 Oximetry Oxygen Devices in Use Now: None Appearance: Elderly, F, sitting in bed in NAD Eyes: No Scleral Icterus Ears/Nose/Mouth/Throat: Mucous Membranes Moist Neck: NL Appearance and Movements; NL JVP Respiratory: Symmetrical Chest Expansion and Respiratory Effort, Clear to Auscultation Cardiovascular: NL Sounds; No Murmurs; No JVD - mild bradycardia Abdominal: NL Sounds; No Tenderness; No Distention Lymphatic: No Cervical Adenopathy Extremities: No Edema Skin: No Rash or Ulcers Neurological: Alert and Oriented x 3 Result Diagrams: 07/23/16 05:09 07/23/16 05:09 Assess/Plan/Problems-Billing Assessment: Chest pain in a 71 yo F with hx of anxiety, depression, GERD - Patient Problems (1) Chest pain Current Visit: No Comment: Troponins negative x3, no EKG changes, no abnormalities on tele. Will change to dobutamine stress echo at Dr. Juarez's recommendation. Have asked psychiatry to evaluate as I am unable to find any physical causes of her pain and this all seemed to come about shortly after she was fired from her job. (2) Anxiety Current Visit: No Comment: depression. Continue Sertraline and Xanax. (3) GERD (gastroesophageal reflux disease) Current Visit: No Comment: Continue PPI (4) DVT prophylaxis Current Visit: No Comment: HSQ
[2016-07-23] MEDS ORDERED: Adenosine* 3 MG/ML VIAL ONE (13:56)
[2016-07-23] MEDS ORDERED: Metoprolol Tartrate IV* 1 MG/ML 5 ML VIAL ONE (13:56)
[2016-07-23] MEDS ORDERED: Atropine SYRINGE* 0.1 MG/ML 10 ML SYRINGE (1 MG) ONE (13:56)
[2016-07-23] MEDS ORDERED: DOBUTamine 2000 MCG/ML IVPREMX 500 MG/250 ML BAG IV ONE (13:58)
[2016-07-23] MEDS ORDERED: HYDROcodone/ACETAMIN 5-325 MG* 1 TAB PO PRN ×2 (16:59)
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
[2016-07-23] MEDS ORDERED: Morphine ORAL.SOLN 10 mg* 2 MG/ML UDC 5 ml PO PRN ×2 (17:25)
[2016-07-24] MEDS: Acetaminophen TAB* 325 MG PO PRN ×2 (00:12→04:13)
[2016-07-24] MEDS: Heparin VIAL(*) 5000 UNITS/ML VIAL (FIVE THOUSAND) SUBCUT SCH (05:02)
[2016-07-24 05:16] LABS: Urine Bilirubin Negative (Negative); Urine Glucose Negative (Negative); Urine Nitrite Negative (Negative)
[2016-07-24] MEDS: Aspirin EC Low Dose* 81 MG TAB.EC PO SCH (08:13)
[2016-07-24] MEDS: ALPRAZolam TAB* 0.25 MG PO SCH (08:14)
[2016-07-24] MEDS: Sertraline* 50 MG TAB PO SCH (08:15)
[2016-07-24] MEDS: Omeprazole CAP* 20 MG PO SCH (08:16)
--- NOTE | 2016-07-24 11:18 | DCNOTE ---
Patient seen this morning. No family present at the time. Said she had a fairly good night, said it was quiet and she was able to get some rest. Had minimal pain when waking up but as the morning wore on she began to think about things and then pain began to recur, improved with 5 mg morphine. On exam, RRR, s1 and s2 present, no m/g/r, abd soft, NTND, BS+ Unfortunately both attempts at stress test yesterday failed (poor images and chest pain with nuclear test, infiltrated IV with dobutamine stress), patient stated she did not want to pursue further testing. Appreciate Psych consultation and recommendations, in agreement that this is somatization of stress/anxiety. Plan to discharge home on PO morphine today. Had f/u with mental health in next 1-2 days. F/U with Dr. Canas as well.
[2016-07-24 11:49] VITALS: BP 126/65
--- NOTE | 2016-07-25 00:21 | DS ---
DISCHARGE SUMMARY: DATE OF ADMISSION: 07/23/16 DATE OF DISCHARGE: 07/24/16 PRIMARY CARE PHYSICIAN: Dr. Canas. PRINCIPAL DISCHARGE DIAGNOSIS: Chest pain secondary to anxiety, stress, trauma , likely somatization. SECONDARY DIAGNOSES: 1. Gastroesophageal reflux disease. 2. Asthma. 3. Depression. 4. Anxiety. STUDIES DONE DURING HOSPITALIZATION: Chest x-ray, impression: No active cardiopulmonary disease is noted. CONSULTS DURING HOSPITALIZATION: David Aguayo MD, Psychiatry. DISCHARGE MEDICATION REGIMEN: 1. Sertraline 150 mg by mouth daily. 2. Protonix 40 mg by mouth daily. 3. Xanax 0.25 mg by mouth daily. 4. Morphine 5 to 10 mg by mouth every 6 hours as needed for pain. HISTORY OF PRESENT ILLNESS AND HOSPITAL SUMMARY: Please see the full history and physical by Luis Peace NP, for full details. Briefly, Ms. Louie is a 71 -year- old female well known to me as I had discharged her the day she was admitted again for chest pain. She had an extensive workup done in her first hospitalization and I felt that at the end of her negative workup, her symptoms were likely due to stress and trauma as she had recently lost her job of 30 plus years and these symptoms started shortly afterwards. During that admission , the patient had telemetry monitoring. Her initial troponin was 0.06; however , CK's were normal and these trended down. She was monitored on telemetry with no arrhythmias. She underwent a CTA of the chest at that time also to rule out aortic dissection, also had a Neurology consult and an MRI of the brain without contrast. The patient was discharged home with pain medications; however, returned to the hospital 3 to 4 hours later with worsening chest pain. At this point, her troponins were negative and remained negative throughout this hospitalization. She was ordered to undergo nuclear cardiac stress test; however, this was unable to be done due to poor images, so a dobutamine stress echo is ordered; however, during this her IV infiltrated, so the heart was unable to be stressed. However, as per Cardiology, her cardiac function seemed normal with no glaring abnormalities. I asked Psychiatry to evaluate the patient and Dr. Aguayo agreed that this was likely a manifestation of the patient's stress and recent trauma. He recommends continuing to treat the pain conservatively and the patient will follow up as an out-patient with her PCP as well as with [facility] for further therapy. The patient seemed agreeable to this plan and did agree that her symptoms were likely due to stress. I did offer her an additional dobutamine stress echo; however, the patient declined. The patient' s family was less convinced of the diagnosis; however, I explained to them that I do not feel any more testing was indicated at this time and that what the patient really needs is continued therapy to deal with her stressors. She will be discharged home with oral morphine and increased dose of sertraline 150 mg by mouth daily and will follow up with her PCP and Psych as an outpatient. TIME SPENT: Total time spent on this discharge, 45 minutes. This is the summary of the hospitalization, please see full medical record for further details. CC: Dr. Canas* [id number]/CPS #: [id number] [id number]
== END 2016-07-24 13:26 | disposition home or self-care (01) | DRG 882 ==
LOC: ED 18:28 → MEDTELE 23:20 → OBSVTOIN 07-23 13:26
PROVIDERS: ADMIT Internal Medicine; ATTEND Hospitalist
DX: F45.8 Other somatoform disorders (principal); F32.9 Major depressive disorder, single episode, unspecified; J45.909 Unspecified asthma, uncomplicated; K21.9 Gastro-esophageal reflux disease without esophagitis; M81.0 Age-related osteoporosis without current pathological fracture; R07.89 Other chest pain; M13.862 Other specified arthritis, left knee; M13.861 Other specified arthritis, right knee; M13.88 Other specified arthritis, other site; F41.0 Panic disorder [episodic paroxysmal anxiety]; Z82.49 Family history of ischemic heart disease and other diseases of the circulatory system; Z80.0 Family history of malignant neoplasm of digestive organs; Z87.01 Personal history of pneumonia (recurrent); Z88.5 Allergy status to narcotic agent; Z72.89 Other problems related to lifestyle; Z87.891 Personal history of nicotine dependence; Z73.3 Stress, not elsewhere classified
CPT/HCPCS: 36415; 71010; 80048; 80053; 80061; 81003; 83036; 84484; 85025; 85610; 93005; 93017; 99284; A9270-GY; G0378; J0153; J0461; J1250; J1644; J2270; J2405; J3490

== ENCOUNTER 2017-06-01 06:25 | Emergency (ER) | payer OTHER, MEDICARE ==
[2017-06-01] MEDS ORDERED: NS 0.9% 1000 ML* 1,000 ML IV ONE (06:29)
[2017-06-01] MEDS ORDERED: Morphine INJ* 4 MG/ML 1 ML CARPUJECT IV ONE (06:34)
[2017-06-01] MEDS ORDERED: Ondansetron INJ* 2 MG/ML VIAL IV ONE (06:34)
[2017-06-01] MEDS ORDERED: Ondansetron INJ* 2 MG/ML VIAL ONE (06:37)
[2017-06-01] MEDS ORDERED: Morphine INJ* 4 MG/ML 1 ML CARPUJECT ONE (06:37)
[2017-06-01 06:49] LABS: ABS Basophils 0.1 10^3/ul (0-0.2); ABS Eosinophils 0.1 10^3/ul (0-0.6); ABS Monocytes 0.5 10^3/ul (0-0.8); ABS Neutrophils 5.9 10^3/ul (1.5-7.7); ABS Nucleated RBC 0 10^3/ul; Eosinophil % 0.9 % (0-6); Hematocrit 42 % (35-47); Hemoglobin 14.4 g/dl (12.0-16.0); Lymphocyte % 23.8 % (25-47); Mean Corpuscular HGB Conc 34 g/dl (31-36); Mean Corpuscular Hemoglobin 29 pg (27-31); Mean Corpuscular Volume 86 fL (80-97); Mean Platelet Volume 8 um3 (7.4-10.4); Nucleated Red Blood Cells % 0; Platelet Count 251 10^3/ul (150-450); Red Blood Count 4.92 10^6/ul (4.0-5.4); Red Cell Distribution Width 13 % (10.5-15); White Blood Count 8.6 10^3/ul (3.5-10.8)
[2017-06-01 07:00] LABS: EGFR Non-African American 57.6 (>60)
[2017-06-01] MEDS ORDERED: Ketorolac TAB * 10 MG TAB PO PRN (08:28)
[2017-06-01] MEDS ORDERED: Tamsulosin CAP* 0.4 MG PO ONE (08:31)
[2017-06-01] MEDS ORDERED: Ketorolac INJ* 30 MG/ML 1 ML VIAL ONE (08:44)
[2017-06-01] MEDS ORDERED: Ketorolac INJ* 30 MG/ML 1 ML VIAL IM ONE (08:45)
--- NOTE | 2017-06-01 09:45 | RAD ---
CLINICAL HISTORY: Left flank pain COMPARISON: Similar CT examination July 26, 2015 TECHNIQUE: Noncontrast CT examination of the abdomen and pelvis from the lung bases through the initial tuberosities. FINDINGS: VISUALIZED LUNG BASES: At the anterior most aspect of the right middle lobe there is a pleural-based 4 mm pulmonary nodule unchanged since the previous CT examination. There is a pleural-based triangular densities at the right lung base morphologically most consistent with atelectasis. Otherwise the visualized lung bases are grossly clear. There is no pleural effusion. ABDOMEN AND PELVIS: Evaluation of the solid organs and vasculature is limited without intravenous contrast. The liver, spleen, pancreas and adrenal glands are grossly normal in appearance. The gallbladder is normal. The right kidney is normal in appearance without focal mass, calcification or signs of hydronephrosis. There is mild left hydronephrosis with a 3 mm calcification located at the left ureterovesical junction. Evaluation of the gastrointestinal tract is limited without oral contrast. The small and large bowel are not distended.The patient's normal appendix is identified in the right lower quadrant measuring 5 mm in diameter (axial image 123) there are diverticula scattered in the distal colon but none exhibit focal inflammatory change. There is no gross retroperitoneal or mesenteric lymphadenopathy. The pelvic viscera is normal in appearance. The abdominal aorta and iliac arteries are normal in course and diameter. Degenerative changes include multilevel loss of intervertebral disc height involving the lower thoracic and lumbar spine.There are no sinister bone lesions. IMPRESSION: 1. Mild left-sided hydronephrosis and periureteral stranding in the presence of a 3 mm calcification at the ureterovesical junction. 2. There is a stable 4 mm pleural-based pulmonary nodule in the anterior right middle lobe as well as right lung base atelectasis.
[2017-06-01 09:53] VITALS: BP 109/56
[2017-06-01 10:17] LABS: INR 0.84 (0.77-1.02)
--- NOTE | 2017-06-01 11:02 | ED ---
Artie Aguiar Tecjoon, scribed for Drew Cutler MD on 06/01/17 at 0811 . Progress - Progress Note Progress Note: This patient was signed out by Dr. Alva at end of shift, awaiting CT Abd/Pel CT Abd/Pel reveals, per radiologist, IMPRESSION: Mild left hydronephrosis and periureteral inflammation secondary to a 3 mm distal UVJ stone. ED physician has reviewed this radiology report. Re-eval at 0845. We discussed imaging results with patient and informed them of the 3mm kidney stone. Patient states she feels much better. Patient will be given Flomax and Toradol in course for pain. VITAL SIGNS: Reviewed. GENERAL: Patient is a well-developed and nourished female who is lying comfortable in the stretcher. Patient is not in any acute respiratory distress. HEAD AND FACE: No signs of trauma. No ecchymosis, hematomas or skull depressions. No sinus tenderness. EYES: PERRLA, EOMI x 2, No injected conjunctiva, no nystagmus. EARS: Hearing grossly intact. Ear canals and tympanic membranes are within normal limits. MOUTH: Oropharynx within normal limits. NECK: Supple, trachea is midline, no adenopathy, no JVD, no carotid bruit, no c- spine tenderness, neck with full ROM. CHEST: Symmetric, no tenderness at palpation LUNGS: Clear to auscultation bilaterally. No wheezing or crackles. CVS: Regular rate and rhythm, S1 and S2 present, no murmurs or gallops appreciated. ABDOMEN: Soft, non-tender. No signs of distention. No rebound no guarding, and no masses palpated. Bowel sounds are normal. EXTREMITIES: FROM in all major joints, no edema, no cyanosis or clubbing. NEURO: Alert and oriented x 3. No acute neurological deficits. Speech is normal and follows commands. SKIN: Dry and warm Course/Dx - Course Course Of Treatment: This patient is a 71 year old F BIBA to [facility] accompanied by her with a chief complaint of left sided ABD pain since 0530 this morning. The patient rates the pain 10/10 in severity and radiating into her back and flank. Patient reports vomiting and nausea. Patient states she feels increased urgency but is unable to void. She has Hx of kidney stones with the last one being 40 years ago. She has not taken anything for pain. CT Abd/Pel reveals, per radiologist, IMPRESSION: Mild left hydronephrosis and periureteral inflammation secondary to a 3 mm distal UVJ stone. ED physician has reviewed this radiology report. In the Re-eval at 0845, we discussed imaging results with patient and informed them of the 3mm kidney stone. Patient states she feels much better. Patient will be given Flomax and Toradol in course for pain. I requested for a urinalysis but patietn just when to the bathroom and she is unable to provide for a urinalysis. She wants to go and does not want to wait for the test. She reports no Dysuria, urinary urgency or hematuria. Patient will be discharged with a diagnosis of Kidney stone and renal colic. Patient will be given a perscription for Ultram and advised to follow up with PCP in 3 days. The patient is agreeable with this plan. - Diagnoses Provider Diagnoses: Flank pain, Renal colic, Kidney stone The documentation as recorded by the Artie wheatley Tecjoon accurately reflects the service I personally performed and the decisions made by me, Drew Cutler MD.
--- NOTE | 2017-06-05 22:44 | ED ---
Francis Aguiar Gabriel, scribed for Luis Alva on 06/01/17 at 0640 . Abdominal Pain/Female - HPI Summary HPI Summary: This patient is a 71 year old F BIBA to [facility] accompanied by her with a chief complaint of left sided ABD pain since 0530 this morning. The patient rates the pain 10/10 in severity and radiating into her back and flank. Patient reports vomiting and nausea. Patient states she feels increased urgency but is unable to void. She has Hx of kidney stones with the last one being 40 years ago. She has not taken anything for pain. - History of Current Complaint Chief Complaint: EDFlankPain Stated Complaint: ABD PAIN Time Seen by Provider: 06/01/17 06:34 Hx Obtained From: Patient Onset/Duration: Sudden Onset, Still Present Timing: Constant Severity Initially: Severe Severity Currently: Severe Pain Intensity: 10 Pain Scale Used: 0-10 Numeric Location: Diffuse Radiates: Yes Radiates to: Back, Flank Associated Signs and Symptoms: Positive: Nausea, Vomiting Allergies/Adverse Reactions: Allergies Allergy/AdvReac Type Severity Reaction Status Date / Time Oxycodone [From Oxycontin] Allergy SEVERE Verified 06/01/17 06:29 ITCHING PMH/Surg Hx/FS Hx/Imm Hx Endocrine/Hematology History: Denies: Hx Anticoagulant Therapy, Hx Diabetes, Hx Thyroid Disease Cardiovascular History: Reports: Hx Angina Denies: Hx Coronary Artery Disease, Hx Hypertension, Hx Pacemaker/ICD, Hx Valvular Heart Disease, Other Cardiovascular Problems/Disorders Respiratory History: Reports: Hx Asthma - PRN INHALER, Hx Pneumonia Denies: Hx Chronic Obstructive Pulmonary Disease (COPD), Other Respiratory Problems/Disorders GI History: Reports: Hx Gastroesophageal Reflux Disease Denies: Other GI Disorders History: Denies: Hx Renal Disease Musculoskeletal History: Reports: Hx Arthritis - LOWER BACK AND KNEES, Hx Osteoporosis Sensory History: Reports: Hx Contacts or Glasses, 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 [place] [place]/13 RT WRIST FRACTURE REPAIR WITH METAL. 12/29/13 - Rt RTC REPAIR Hx Anesthesia Reactions: No - Immunization History Date of Tetanus Vaccine: up to date Date of Influenza Vaccine: 2015 Infectious Disease History: No Infectious Disease History: Denies: Hx Hepatitis, Hx Human Immunodeficiency Virus (HIV), Traveled Outside the [place] in Last 30 Days - Family History Known Family History: Positive: Cardiac Disease - Hx in father, Other - Hx peritoneal CA in mother - Social History Alcohol Use: Occasionally Alcohol Amount: 1-2 PER MONTH Substance Use Type: Reports: None Hx Tobacco Use: Yes - Uses "E-cigarette" Smoking Status (MU): Former Smoker Type: Cigarettes, eCigarettes Amount Used/How Often: 1/2-3/4 PPDX 30 YEARS OFF AND ON Length of Time of Smoking/Using Tobacco: 35 years Have You Smoked in the Last Year: No Review of Systems Positive: Abdominal Pain, Vomiting, Nausea Positive: urgency All Other Systems Reviewed And Are Negative: Yes Physical Exam - Summary Physical Exam Summary: Appearance: Well appearing, no pain distress Skin: warm, dry, reflects adequate perfusion Head/face: normal Eyes: EOMI, CLARE ENT: normal Neck: supple, non-tender Respiratory: CTA, breath sounds present Cardiovascular: RRR, pulses symmetrical Abdomen: mild tenderness in LUQ and LLQ, soft Bowel: present Musculoskeletal: normal, strength/ROM intact Neuro: normal, sensory motor intact, A&Ox3 Triage Information Reviewed: Yes Vital Signs On Initial Exam: Initial Vitals Temp Pulse Resp BP Pulse Ox 97.2 F 61 16 165/77 99 06/01/17 06:26 06/01/17 06:26 06/01/17 06:26 06/01/17 06:26 06/01/17 06:26 Vital Signs Reviewed: Yes Diagnostics - Vital Signs Vital Signs Temp Pulse Resp BP Pulse Ox 06/01/17 06:26 97.2 F 61 16 165/77 99 - Laboratory Lab Results: Lab Results 06/01/17 06/01/17 06/01/17 Range/Units 06:32 06:32 06:32 WBC 8.6 (3.5-10.8) 10^3/ul RBC 4.92 (4.0-5.4) 10^6/ul Hgb 14.4 (12.0-16.0) g/dl Hct 42 (35-47) % MCV 86 (80-97) fL MCH 29 (27-31) pg MCHC 34 (31-36) g/dl RDW 13 (10.5-15) % Plt Count 251 (150-450) 10^3/ul MPV 8 (7.4-10.4) um3 Neut % (Auto) 68.3 (38-83) % Lymph % (Auto) 23.8 L (25-47) % [place] % (Auto) 5.8 (1-9) % Eos % (Auto) 0.9 (0-6) % Baso % (Auto) 1.2 (0-2) % Absolute Neuts (auto) 5.9 (1.5-7.7) 10^3/ul Absolute Lymphs (auto) 2.0 (1.0-4.8) 10^3/ul Absolute Monos (auto) 0.5 (0-0.8) 10^3/ul Absolute Eos (auto) 0.1 (0-0.6) 10^3/ul Absolute Basos (auto) 0.1 (0-0.2) 10^3/ul Absolute Nucleated RBC 0 10^3/ul Nucleated RBC % 0 INR (Anticoag Therapy) 0.84 (0.77-1.02) APTT 30.9 (26.0-36.3) seconds Sodium 138 (133-145) mmol/L Potassium 4.7 (3.5-5.0) mmol/L Chloride 105 (101-111) mmol/L Carbon Dioxide 26 (22-32) mmol/L Anion Gap 7 (2-11) mmol/L BUN 21 (6-24) mg/dL Creatinine 0.96 H (0.51-0.95) mg/dL Est GFR ( Amer) 74.1 (>60) Est GFR (Non-Af Amer) 57.6 (>60) BUN/Creatinine Ratio 21.9 H (8-20) Glucose 146 H (70-100) mg/dL Lactic Acid (0.5-2.0) mmol/L Calcium 10.1 (8.6-10.3) mg/dL Total Bilirubin 0.30 (0.2-1.0) mg/dL AST 13 (13-39) U/L ALT 11 (7-52) U/L Alkaline Phosphatase 86 (34-104) U/L Troponin I 0.00 (<0.04) ng/mL Total Protein 7.0 (6.4-8.9) g/dL Albumin 4.3 (3.2-5.2) g/dL Globulin 2.7 (2-4) g/dL Albumin/Globulin Ratio 1.6 (1-3) Lipase 31 (11.0-82.0) U/L 06/01/17 Range/Units 06:32 WBC (3.5-10.8) 10^3/ul RBC (4.0-5.4) 10^6/ul Hgb (12.0-16.0) g/dl Hct (35-47) % MCV (80-97) fL MCH (27-31) pg MCHC (31-36) g/dl RDW (10.5-15) % Plt Count (150-450) 10^3/ul MPV (7.4-10.4) um3 Neut % (Auto) (38-83) % Lymph % (Auto) (25-47) % [place] % (Auto) (1-9) % Eos % (Auto) (0-6) % Baso % (Auto) (0-2) % Absolute Neuts (auto) (1.5-7.7) 10^3/ul Absolute Lymphs (auto) (1.0-4.8) 10^3/ul Absolute Monos (auto) (0-0.8) 10^3/ul Absolute Eos (auto) (0-0.6) 10^3/ul Absolute Basos (auto) (0-0.2) 10^3/ul Absolute Nucleated RBC 10^3/ul Nucleated RBC % INR (Anticoag Therapy) (0.77-1.02) APTT (26.0-36.3) seconds Sodium (133-145) mmol/L Potassium (3.5-5.0) mmol/L Chloride (101-111) mmol/L Carbon Dioxide (22-32) mmol/L Anion Gap (2-11) mmol/L BUN (6-24) mg/dL Creatinine (0.51-0.95) mg/dL Est GFR ( Amer) (>60) Est GFR (Non-Af Amer) (>60) BUN/Creatinine Ratio (8-20) Glucose (70-100) mg/dL Lactic Acid 1.4 (0.5-2.0) mmol/L Calcium (8.6-10.3) mg/dL Total Bilirubin (0.2-1.0) mg/dL AST (13-39) U/L ALT (7-52) U/L Alkaline Phosphatase (34-104) U/L Troponin I (<0.04) ng/mL Total Protein (6.4-8.9) g/dL Albumin (3.2-5.2) g/dL Globulin (2-4) g/dL Albumin/Globulin Ratio (1-3) Lipase (11.0-82.0) U/L Result Diagrams: 06/01/17 06:32 06/01/17 06:32 Lab Statement: Any lab studies that have been ordered have been reviewed, and results considered in the medical decision making process. Abdominal Pain Fem Course/Dx - Diagnoses Provider Diagnoses: Flank pain, Renal colic, Kidney stone Discharge - Discharge Plan Condition: Stable Disposition: HOME Discharge Disposition Comment: Patient is signed out to Dr. Cutler, pending disposition, awaiting CT. Prescriptions: traMADol TAB* [Ultram*] 50 mg PO Q6HR PRN #12 tab MDD 4 PRN Reason: Pain Patient Education Materials: Kidney Stones (ED), Renal Colic (ED) Referrals: Leland Canas MD [Primary Care Provider] - 3 Days Additional Instructions: Patient will be discharged with a diagnosis of Kidney stone and renal colic. Patient will be given a perscription for Ultram and advised to follow up with PCP in 3 days. The patient is agreeable with this plan. Return to the ED for persisting or worsening symptoms. The documentation as recorded by the Francis wheatley Gabriel accurately reflects the service I personally performed and the decisions made by Nida nino Emmanuel.
== END 2017-06-01 09:02 | disposition home or self-care (01) ==
LOC: ED 06:25
DX: R10.84 Generalized abdominal pain (principal); N23 Unspecified renal colic; N20.0 Calculus of kidney
CPT/HCPCS: 36415; 74176; 80053; 83605; 83690; 84484; 85025; 85610; 85730; 93005; 96374; 96375; 99283; J1885; J2270; J2405

== ENCOUNTER 2018-02-19 13:03 | Emergency (ER) | payer MEDICARE, OTHER ==
[2018-02-19] MEDS ORDERED: Famotidine IV* 10 MG/ML 2 ML (20 mg) IV ONE (18:32)
[2018-02-19] MEDS ORDERED: Dexamethasone IV* 4 MG/ML 1 ML (4 MG) IV SLOW PU ONE (18:32)
[2018-02-19] MEDS ORDERED: NS 0.9% 1000 ML* 1,000 ML IV ONE (18:32)
[2018-02-19] MEDS ORDERED: diPHENhydraMINE IV* 50 MG/ML 1 ml VIAL (BENADRYL) IV ONE (18:34)
[2018-02-19 19:15] LABS: ABS Basophils 0.1 10^3/ul (0-0.2); ABS Eosinophils 0.1 10^3/ul (0-0.6); ABS Lymphocytes 2.5 10^3/ul (1.0-4.8); ABS Monocytes 0.6 10^3/ul (0-0.8); ABS Neutrophils 6.3 10^3/ul (1.5-7.7); ABS Nucleated RBC 0 10^3/ul; Eosinophil % 0.5 % (0-6); Hematocrit 41 % (35-47); Hemoglobin 13.8 g/dl (12.0-16.0); Lymphocyte % 26.2 % (25-47); Mean Corpuscular HGB Conc 33 g/dl (31-36); Mean Corpuscular Hemoglobin 29 pg (27-31); Mean Corpuscular Volume 87 fL (80-97); Nucleated Red Blood Cells % 0.1; Platelet Count 220 10^3/ul (150-450); Red Blood Count 4.76 10^6/ul (4.00-5.40); Red Cell Distribution Width 14 % (10.5-15); White Blood Count 9.6 10^3/ul (3.5-10.8)
[2018-02-19 19:39] LABS: EGFR Non-African American 69.9 (>60)
--- NOTE | 2018-02-19 20:55 | ED ---
Allergic Reaction/Systemic - HPI Summary HPI Summary: This patient is a 72 year old F presenting to [facility] accompanied by family with a chief complaint of allergic reaction since being stung 3 to 4 times by a yellow jacket. The patient endorses a bee allergy. She endorses using her epi- pen once. Pt endorses resolved throat and tongue swelling, and swollen and erythematous sting sites. She currently endorses dizziness and nausea. Pt denies SOB and CP. - History of Current Complaint Chief Complaint: EDAllergicReaction Time Seen by Provider: 02/19/18 18:23 Hx Obtained From: Patient Onset/Duration: Sudden Onset, Started hours ago, Still Present - nausea and dizziness, Resolved - swelling and erythema Timing: Constant Severity Initially: Severe Severity Currently: Mild Pain Intensity: 9 Pain Scale Used: 0-10 Numeric Character: Swelling Aggravating Factor(s): Nothing Alleviating Factor(s): Epinephrine Associated Signs And Symptoms: Positive: Nausea, Throat Tightening, Other: - Swelling of throat and mouth, swelling and erythema of sting sites. - Related Hx Possible Reaction To: Insect - yellow jacket, 3-4 stings - Allergies/Home Medications Allergies/Adverse Reactions: Allergies Allergy/AdvReac Type Severity Reaction Status Date / Time bee venom protein (honey bee) Allergy Rash Verified 02/19/18 18:20 oxycodone Allergy Rash And Verified 02/19/18 18:20 Itching PMH/Surg Hx/FS Hx/Imm Hx Endocrine/Hematology History: Denies: Hx Anticoagulant Therapy, Hx Diabetes, Hx Thyroid Disease Cardiovascular History: Reports: Hx Angina Denies: Hx Coronary Artery Disease, Hx Hypertension, Hx Pacemaker/ICD, Hx Valvular Heart Disease, Other Cardiovascular Problems/Disorders Respiratory History: Reports: Hx Asthma - PRN INHALER, Hx Pneumonia Denies: Hx Chronic Obstructive Pulmonary Disease (COPD), Other Respiratory Problems/Disorders GI History: Reports: Hx Gastroesophageal Reflux Disease Denies: Other GI Disorders History: Denies: Hx Renal Disease Musculoskeletal History: Reports: Hx Arthritis - LOWER BACK AND KNEES, Hx Osteoporosis Sensory History: Reports: Hx Contacts or Glasses, 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, 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GERY FOR ACOUSTIC NEUROMA. [facility]ORTONS NEUROMA REMOVED[place] [place]. 08/13/13 RT WRIST FRACTURE REPAIR WITH METAL. 12/29/13 - Rt RTC REPAIR Hx Anesthesia Reactions: No - Immunization History Date of Tetanus Vaccine: up to date Date of Influenza Vaccine: 2015 Infectious Disease History: No Infectious Disease History: Denies: Hx Hepatitis, Hx Human Immunodeficiency Virus (HIV), Traveled Outside the [place] in Last 30 Days - Family History Known Family History: Positive: Cardiac Disease - Hx in father, Other - Hx peritoneal CA in mother - Social History Occupation: Retired Lives: With Family Alcohol Use: Occasionally Alcohol Amount: 1-2 PER MONTH Substance Use Type: Reports: None Hx Tobacco Use: Yes - Uses "E-cigarette" Smoking Status (MU): Former Smoker Type: Cigarettes, eCigarettes Amount Used/How Often: 1/2-3/4 PPDX 30 YEARS OFF AND ON Length of Time of Smoking/Using Tobacco: 35 years Have You Smoked in the Last Year: No Review of Systems Negative: Fever Positive: Other - resolved swollen tongue and throat Positive: Nausea Positive: no symptoms reported Positive: Rash, Other - swelling and erythema of sting sites Neurological: Other - DIZZINESS All Other Systems Reviewed And Are Negative: Yes Physical Exam - Summary Physical Exam Summary: VITAL SIGNS: Reviewed. GENERAL: Patient is a well-developed and nourished (MALE OR FEMALE) who is lying comfortable in the stretcher. Patient is not in any acute respiratory distress. HEAD AND FACE: No signs of trauma. No ecchymosis, hematomas or skull depressions. No sinus tenderness. EYES: PERRLA, EOMI x 2, No injected conjunctiva, no nystagmus. EARS: Hearing grossly intact. Ear canals and tympanic membranes are within normal limits. MOUTH: Oropharynx within normal limits. No swelling of the tongue or lips. Airway patent. No feeling like the throat is closing. NECK: Supple, trachea is midline, no adenopathy, no JVD, no carotid bruit, no c- spine tenderness, neck with full ROM. CHEST: Symmetric, no tenderness at palpation LUNGS: Clear to auscultation bilaterally. No wheezing or crackles. Airway patent CVS: Regular rate and rhythm, S1 and S2 present, no murmurs or gallops appreciated. ABDOMEN: Soft, non-tender. No signs of distention. No rebound no guarding, and no masses palpated. Bowel sounds are normal. EXTREMITIES: FROM in all major joints, no edema, no cyanosis or clubbing. NEURO: Alert and oriented x 3. No acute neurological deficits. Speech is normal and follows commands. SKIN: Dry and warm Triage Information Reviewed: Yes Vital Signs On Initial Exam: Initial Vitals Temp Pulse Resp BP Pulse Ox 98.5 F 97 20 148/72 100 02/19/18 13:08 02/19/18 13:08 02/19/18 13:08 02/19/18 13:08 02/19/18 13:08 Vital Signs Reviewed: Yes Diagnostics - Vital Signs Vital Signs Temp Pulse Resp BP Pulse Ox 02/19/18 18:54 60 15 172/93 99 02/19/18 18:25 61 18 161/85 98 02/19/18 18:24 59 14 98 02/19/18 17:15 97.2 F 60 18 139/72 100 02/19/18 13:08 98.5 F 97 20 148/72 100 - Laboratory Lab Results: Lab Results 02/19/18 02/19/18 Range/Units 19:01 19:01 WBC 9.6 (3.5-10.8) 10^3/ul RBC 4.76 (4.00-5.40) 10^6/ul Hgb 13.8 (12.0-16.0) g/dl Hct 41 (35-47) % MCV 87 (80-97) fL MCH 29 (27-31) pg MCHC 33 (31-36) g/dl RDW 14 (10.5-15) % Plt Count 220 (150-450) 10^3/ul MPV 8.0 (7.4-10.4) um3 Neut % (Auto) 65.6 (38-83) % Lymph % (Auto) 26.2 (25-47) % [place] % (Auto) 6.6 (0-7) % Eos % (Auto) 0.5 (0-6) % Baso % (Auto) 1.1 (0-2) % Absolute Neuts (auto) 6.3 (1.5-7.7) 10^3/ul Absolute Lymphs (auto) 2.5 (1.0-4.8) 10^3/ul Absolute Monos (auto) 0.6 (0-0.8) 10^3/ul Absolute Eos (auto) 0.1 (0-0.6) 10^3/ul Absolute Basos (auto) 0.1 (0-0.2) 10^3/ul Absolute Nucleated RBC 0 10^3/ul Nucleated RBC % 0.1 Sodium 139 (135-145) mmol/L Potassium 4.0 (3.5-5.0) mmol/L Chloride 108 (101-111) mmol/L Carbon Dioxide 20 L (22-32) mmol/L Anion Gap 11 (2-11) mmol/L BUN 17 (6-24) mg/dL Creatinine 0.81 (0.51-0.95) mg/dL Est GFR ( Amer) 84.6 (>60) Est GFR (Non-Af Amer) 69.9 (>60) BUN/Creatinine Ratio 21.0 H (8-20) Glucose 88 (70-100) mg/dL Calcium 9.4 (8.6-10.3) mg/dL Total Bilirubin 0.40 (0.2-1.0) mg/dL AST 16 (13-39) U/L ALT 12 (7-52) U/L Alkaline Phosphatase 72 (34-104) U/L C-Reactive Protein 6.54 (<8.01) mg/L Total Protein 7.0 (6.4-8.9) g/dL Albumin 4.5 (3.2-5.2) g/dL Globulin 2.5 (2-4) g/dL Albumin/Globulin Ratio 1.8 (1-3) Result Diagrams: 02/19/18 19:01 02/19/18 19:01 Lab Statement: Any lab studies that have been ordered have been reviewed, and results considered in the medical decision making process. Allergic Reaction Course/Dx - Course Assessment/Plan: This patient is a 72-year-old female who presents to the emergency department with a chief complaint of having an allergic reaction after she was stung by 3 yellow jackets. She reports that she was given herself an EpiPen and she came to the emergency room for further workup and assessment. The physical exam: She does have any swelling of the tongue or lips , denies any airway compromise. The patient was given IV fluids, Decadron, Benadryl, and Pepcid. The patient was placed on a research microbiologist and the patient is being evaluated. Blood work without any Significant abnormality. In reassessment the patient reports that she is feeling better, she doesnt have any lip swelling, she doesnt have any tongue swelling and the airway is patent. The patient is hemodynamically stable and she will be discharged home with follow-up with primary care physician. I discussed all the findings and test results with the patient. Patient was instructed to return to the emergency room immediately if any of the symptoms return or worsens. Plan of care was discussed with the patient and understands and agrees. All questions were answered at patient satisfaction. There were no further complaints or concerns. Lung exam before discharge: CTA B/L. Good air exchange. No wheezing or crackles heard. CVS: S1 and S2 present. No murmurs appreciated. Patient is alert and oriented x 3. Patient is hemodynamically stable. Patient will be discharged home with follow up PCP in the next 2-3 days - Diagnoses Differential Diagnosis/HQI/PQRI: Positive: Airway Obstruction, Anaphylaxis, Bronchospasm, Local Allergic Reaction, Urticaria Provider Diagnoses: Allergic reaction to bee sting Discharge - Sign-Out/Discharge Documenting (check all that apply): Patient Departure - discharge - Discharge Plan Condition: Stable Disposition: HOME Prescriptions: diPHENhydraMINE PO* [Benadryl PO 25 MG TAB*] 25 mg PO TID PRN #30 tab PRN Reason: Allergy Symptoms EPINEPHrine [Epipen 2-Avtar] 1 inj IM SEE INSTRUCTIONS #1 avtar Famotidine TAB* [Pepcid 20 MG TAB*] 20 mg PO DAILY #10 tab predniSONE [Prednisone 20 MG TAB] 20 mg PO DAILY #4 tablet Patient Education Materials: General Allergic Reaction (ED) Referrals: Leland Canas MD [Primary Care Provider] - 3 Days Additional Instructions: Return to the emergency room for any new or worsening symptoms. - Billing Disposition and Condition Condition: STABLE Disposition: Home - Attestation Statements Document Initiated by Scribe: Yes Documenting Scribe: Stewart Pastrana Provider For Whom Scribe is Documenting (Include Credential): Dr. Drew Cutler MD Scribe Attestation: I, Stewart Pastrana, scribed for Dr. Drew Cutler MD on 02/19/18 at 2113. Scribe Documentation Reviewed: Yes Provider Attestation: The documentation as recorded by the scribeStewart accurately reflects the service I personally performed and the decisions made by me, Dr. Drew Cutler MD
[2018-02-19 20:58] LABS: Urine Appearance Clear; Urine Blood Negative (Negative); Urine Color Yellow; Urine Ketones Trace (Negative); Urine Protein Negative (Negative); Urine Specific Gravity 1.015 (1.010-1.030); Urine Urobilinogen Negative (Negative)
[2018-02-19 21:05] VITALS: BP 163/84
== END 2018-02-19 21:03 | disposition home or self-care (01) ==
LOC: ED 13:03
DX: T63.441A Toxic effect of venom of bees, accidental (unintentional), initial encounter (principal); Y92.9 Unspecified place or not applicable; Z87.891 Personal history of nicotine dependence; J45.909 Unspecified asthma, uncomplicated; K21.9 Gastro-esophageal reflux disease without esophagitis
CPT/HCPCS: 36415; 80053; 81003; 85025; 86140; 96361; 96374; 96375; 99282; J1100; J1200

== ENCOUNTER 2018-02-25 13:12 | Emergency (ER) | payer MEDICARE, OTHER ==
--- NOTE | 2018-02-25 13:40 | ED ---
Neurological HPI - HPI Summary HPI Summary: Time seen by Dr. Alva: [id number] This patient is a 72 year old F presenting to ED with a chief complaint of numbness on L side of face and L vision changes since yesterday. Nausea, weakness, and dizziness (to the point of near-syncope) since bee sting last week. The patient was seen in the ED 1 week ago after the bee sting, but has not felt better since. The patient rates the pain 0/10 in severity. Symptoms aggravated by changing position. Symptoms alleviated by nothing. Denies PMHx of stroke. - History of Current Complaint Chief Complaint: EDDizziness Stated Complaint: LT FACIAL NUMBNESS/WEAKNESS/POSS VERTIGO Time Seen by Provider: 02/25/18 13:29 Hx Obtained From: Patient Onset/Duration: Sudden Onset, Started days ago - since yesterday, Still Present Timing: Constant Current Severity: None Pain Intensity: 0 Pain Scale Used: 0-10 Numeric Aggravating: Position Change/Supine to Erect Alleviating: Nothing Associated Signs and Symptoms: Positive: Visual Changes - L side, Weakness, Dizziness, Nausea/Vomiting - Additional Pertinent History Primary Care Physician: LORENZO - Allergy/Home Medications Allergies/Adverse Reactions: Allergies Allergy/AdvReac Type Severity Reaction Status Date / Time bee venom protein (honey bee) Allergy Rash Verified 02/19/18 18:20 oxycodone Allergy Rash And Verified 02/19/18 18:20 Itching Home Medications: Home Medications EPINEPHrine [Epipen 2-Avtar] 0.3 mg INJ ONCE PRN 02/25/18 [History Confirmed 02/25] Sertraline* [Zoloft*] 25 - 50 mg PO DAILY 02/25/18 [History Confirmed 02/25/18] diPHENhydraMINE PO* [Benadryl PO 25 MG TAB*] 25 mg PO TID PRN 02/25/18 [History Confirmed 02/25/18] traZODone TAB* [Desyrel TAB*] 50 - 100 mg PO BEDTIME PRN 02/25/18 [History Confirmed 02/25/18] PMH/Surg Hx/FS Hx/Imm Hx Endocrine/Hematology History: Denies: Hx Anticoagulant Therapy, Hx Diabetes, Hx Thyroid Disease Cardiovascular History: Reports: Hx Angina Denies: Hx Coronary Artery Disease, Hx Hypertension, Hx Pacemaker/ICD, Hx Valvular Heart Disease, Other Cardiovascular Problems/Disorders Respiratory History: Reports: Hx Asthma - PRN INHALER, Hx Pneumonia Denies: Hx Chronic Obstructive Pulmonary Disease (COPD), Other Respiratory Problems/Disorders GI History: Reports: Hx Gastroesophageal Reflux Disease Denies: Other GI Disorders History: Denies: Hx Renal Disease Musculoskeletal History: Reports: Hx Arthritis - LOWER BACK AND KNEES, Hx Osteoporosis Sensory History: Reports: Hx Contacts or Glasses, 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 08/13/13 RT WRIST FRACTURE REPAIR WITH METAL. 12/29/13 - Rt RTC REPAIR Hx Anesthesia Reactions: No - Immunization History Date of Tetanus Vaccine: up to date Date of Influenza Vaccine: 2015 Infectious Disease History: No Infectious Disease History: Denies: Hx Hepatitis, Hx Human Immunodeficiency Virus (HIV), Traveled Outside the [place] in Last 30 Days - Family History Known Family History: Positive: Cardiac Disease - Hx in father, Other - Hx peritoneal CA in mother - Social History Alcohol Use: Occasionally Alcohol Amount: 1-2 PER MONTH Substance Use Type: Reports: None Hx Tobacco Use: Yes - Uses "E-cigarette" Smoking Status (MU): Former Smoker Type: Cigarettes, eCigarettes Amount Used/How Often: 1/2-3/4 PPDX 30 YEARS OFF AND ON Length of Time of Smoking/Using Tobacco: 35 years Have You Smoked in the Last Year: No Review of Systems Positive: Other - L sided visual changes Positive: Nausea Neurological: Other - dizziness (to the point of near-syncope) Positive: Weakness, Numbness - L side of face All Other Systems Reviewed And Are Negative: Yes Physical Exam - Summary Physical Exam Summary: Appearance: Well appearing, no pain distress Skin: warm, dry, reflects adequate perfusion Head/face: normal Eyes: EOMI, CLARE ENT: normal Neck: supple, non-tender Respiratory: CTA, breath sounds present Cardiovascular: RRR, pulses symmetrical Abdomen: non-tender, soft Bowel: present Musculoskeletal: normal, strength/ROM intact Neuro: normal, sensory motor intact, A&Ox3 GCS: 15 Triage Information Reviewed: Yes Vital Signs On Initial Exam: Initial Vitals Temp Pulse Resp BP Pulse Ox 98 F 79 19 172/78 99 02/25/18 13:16 02/25/18 13:16 02/25/18 13:16 02/25/18 13:16 02/25/18 13:16 Vital Signs Reviewed: Yes Diagnostics - Vital Signs Vital Signs Temp Pulse Resp BP Pulse Ox 02/25/18 13:16 98 F 79 19 172/78 99 - Laboratory Result Diagrams: 02/25/18 14:21 02/25/18 14:21 Lab Statement: Any lab studies that have been ordered have been reviewed, and results considered in the medical decision making process. - Radiology CXR Radiology Interpretation Completed By: Radiologist - No evidence for acute intrathoracic disease. ED physician has reviewed this radiology report. - CT Brain CT CT Interpretation Completed By: Radiologist - No intracranial mass or hemorrhage is noted. Patient is status post left craniotomy. ED physician has reviewed this radiology report. - EKG 1339 Cardiac Rate: NL - 65 BPM EKG Rhythm: Sinus Rhythm EKG Interpretation: No acute changes. NIH Scale - NIH Scale Level of Consciousness: Alert/Keenly Responsive Ask Patient the Month and His/Her Age: Both Correct Ask Pt to Open/Close Eyes and Supervisor Liquefaction/Release Non-Paretic Hand: Both Correctly Best Gaze (Only Horizontal Eye Movement): Normal Visual Field Testing: No Visual Loss Facial Paresis-Pt to Smile & Close Eyes or Grimace Symmetry: Normal/Symmetrical Motor Function - Right Arm: No Drift-Holds 10 Seconds Motor Function - Left Arm: No Drift-Holds 10 Seconds Motor Function - Right Leg: No Drift-Holds 10 Seconds Motor Function - Left Leg: No Drift-Holds 10 Seconds Limb Ataxia-Must be out of Proportion to Weakness Present: Absent Sensory (Use Pinprick to Test Arms/Legs/Trunk/Face): Normal Best Language (Describe Picture, Name Items): No Aphasia Dysarthria (Read Several Words): Normal Extinction and Inattention: No Abnormality Total Score: 0 Re-Evaluation - Re-Evaluation First Eval Re-Evaluation Time: 15:37 Comment: Discuss plan for discharge. Patient understands and agrees with this plan. Course/Dx - Course Assessment/Plan: This patient is a 72 year old F presenting to ED with a chief complaint of numbness on L side of face and L vision changes since yesterday. Blood work/UA obtained. Brain CT reveals no intracranial mass or hemorrhage is noted. Patient is status post left craniotomy. CXR reveals no evidence for acute intrathoracic disease. EKG done at 1339 shows NSR at 65 BPM and no acute changes. This patient will be discharged. Patient understands and is agreeable with this plan. - Differential Dx Differential Diagnoses Neuro: Positive: Anxiety, Benign Paroxysmal Positional Vertigo, Cerebrovascular Accident, Intracranial Bleed, Labyrinthitis, Transient Ischemic Attack, Other - dizziness - Diagnoses Provider Diagnoses: Anxiety, Dizziness - Physician Notifications Discussed Care Of Patient With: Bebeto Cooney Time Discussed With Above Provider: 15:30 Instructed by Provider To: Other - Consulted Dr. Cooney who will see the patient in the ED. - Critical Care Time Critical Care Time: 30-74 min Discharge - Sign-Out/Discharge Documenting (check all that apply): Patient Departure - discharge - Discharge Plan Condition: Stable Disposition: HOME Prescriptions: Meclizine TAB* [Antivert 12.5 TAB*] 25 mg PO TID PRN #20 tab MDD 3 PRN Reason: Vertigo Patient Education Materials: Dizziness (ED), Anxiety (ED) Referrals: Leland Canas MD [Primary Care Provider] - 3 Days Additional Instructions: PLEASE RETURN TO THE ED FOR ANY NEW OR WORSENING SYMPTOMS. - Billing Disposition and Condition Condition: STABLE Disposition: Home - Attestation Statements Document Initiated by Cameronibe: Yes Documenting Scribe: Jaylan Alva Provider For Whom Nasreen is Documenting (Include Credential): Luis Alva MD Scribe Attestation: Jaylan Aguiar scribed for Luis Alva MD on 02/25/18 at 1548. Scribe Documentation Reviewed: Yes Provider Attestation: The documentation as recorded by the Jaylan wheatley accurately reflects the service I personally performed and the decisions made by me, Luis Alva MD
--- NOTE | 2018-02-25 14:14 | RAD ---
Indication: CVA. LEFT side facial numbness for 3 days. Nausea and shortness of breath. Asthma. Comparison: June 01, [address] Technique: Upright AP 1400 hours Report: Clear lungs and pleural spaces. Negative for pneumothorax. The heart, pulmonary vasculature, and mediastinal contours are unremarkable. Unremarkable osseous structures and soft tissue contours. IMPRESSION: #. No evidence for acute intrathoracic disease.
--- NOTE | 2018-02-25 14:15 | RAD ---
Indication: Stroke. CT of the brain was performed without IV contrast. Ventricular structures are midline. No midline shift is noted. The extra-axial spaces are unremarkable. There is no evidence of intracranial mass or hemorrhage. No other high or low density lesions are identified. Patient status post left craniotomy and mastoid resection. IMPRESSION: No intracranial mass or hemorrhage is noted. Patient is status post left craniotomy.
[2018-02-25 14:38] LABS: ABS Basophils 0.1 10^3/ul (0-0.2); ABS Eosinophils 0.1 10^3/ul (0-0.6); ABS Lymphocytes 2.7 10^3/ul (1.0-4.8); ABS Monocytes 0.7 10^3/ul (0-0.8); ABS Neutrophils 4.4 10^3/ul (1.5-7.7); ABS Nucleated RBC 0 10^3/ul; Eosinophil % 1.4 % (0-6); Hematocrit 38 % (35-47); Hemoglobin 12.8 g/dl (12.0-16.0); Lymphocyte % 33.9 % (25-47); Mean Corpuscular HGB Conc 33 g/dl (31-36); Mean Corpuscular Hemoglobin 29 pg (27-31); Mean Corpuscular Volume 87 fL (80-97); Mean Platelet Volume 7.9 um3 (7.4-10.4); Nucleated Red Blood Cells % 0.1; Platelet Count 235 10^3/ul (150-450); Red Blood Count 4.41 10^6/ul (4.00-5.40); Red Cell Distribution Width 14 % (10.5-15)
[2018-02-25] MEDS ORDERED: Meclizine TAB* 12.5 MG PO ONE (14:48)
[2018-02-25 14:49] LABS: INR 0.86 (0.77-1.02)
[2018-02-25 14:54] LABS: EGFR Non-African American 54.2 (>60)
[2018-02-25 15:50] VITALS: BP 151/87
--- NOTE | 2018-02-25 21:54 | CONS ---
NEUROLOGY CONSULTATION: DATE OF CONSULT: 02/25/18 LOCATION: She is in the emergency room. REFERRING PHYSICIAN: Dr. Alva. CHIEF COMPLAINT: Facial numbness, dizziness. HISTORY OF PRESENT ILLNESS: Sahra Louie is a 72-year-old woman, who was stung by multiple bees on 02/19/18 leading to hives and an emergency room visit. On 02/19/18, she was here and received IV dexamethasone and she also gave herself her EpiPen. She took oral steroids with the last dose yesterday. She noted a sense of numbness of left side of her face and blurry vision mainly yesterday, but even perhaps a day or 2 before that. She did not have much appetite and has been nauseous. Her daughter who is present feels that mentally she has been very fuzzy. The patient feels generally unwell. She was evaluated by Dr. Alva in the emergency room and had a negative CAT scan of the brain other than postsurgical changes from an old left acoustic neuroma resection. I was asked to see her. PAST MEDICAL HISTORY: She had acoustic neuroma removed about 20 years ago. Looking at prior records, she has had MRI scans of the brain for complaints of left facial numbness going back several years. She has a history of an anxiety disorder, knee surgery, fractured wrist requiring surgery. MEDICATIONS: At home consist of: 1. Trazodone 100 mg p.o. q.h.s. 2. Benadryl 25 mg p.o. t.i.d. since the bee stings. 3. Sertraline 50 mg p.o. q. day. 4. Alprazolam 0.25 mg p.o. b.i.d. p.r.n. anxiety. ALLERGIES: She is allergic to BEE STINGS and OXYCODONE. REVIEW OF SYSTEMS: Negative for change in weight. She has not had much appetite, but she does not think that her weight is changed. She notes blurry vision and a sense of dizziness, but does not describe true vertigo. She has not noticed any numbness in her limbs. She feels generally fatigued and weak. PHYSICAL EXAM: She is afebrile. Temperature 98.0, blood pressure is fluctuating between 170 systolic to 130 systolic. Diastolics are running in the 70s and 80s. Heart rate is 70 and regular, respiratory rate is 19, and oxygen saturation is 99% on room air. Heart is in a regular rate and rhythm without murmurs. There are no cervical bruits. Oral mucosa is moist. Neurological Exam: Pupils react equally from 4 down to 2 mm. Eye movements and visual hillman are normal. There is no ptosis. Funduscopic exam is normal bilaterally. Facial musculature is symmetric. Facial sensation is reported as diminished to light touch, pin, and temperature on the left side of the face. Sensory exam in the limbs is normal. Pin and light touch are symmetrical in the limbs. There is normal strength in all 4 limbs and no drift of any limbs. Finger taps are normal in the hands. Reflexes are brisk and symmetric and plantar responses are flexor. I did not attempt to ambulate her. She is alert and oriented and a pretty good historian, but loses her train of thought. Language is fluent. DIAGNOSTIC STUDIES/LAB DATA: Includes a normal CBC, normal INR and PTT, normal chemistry profile other than borderline elevated potassium of 5.1, creatinine 1.0, and glucose 102. CT scan of the brain is reviewed and appears normal other than postsurgical changes. EKG is unremarkable. IMPRESSION AND PLAN: Impression is that of some chronic intermittent numbness of the left side of the face probably aggravated by steroid use. 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 She is also having some generalized symptoms of dysphoria and nausea, which I think all points to the steroids. I advised her of my impression. She has alprazolam at home and she could use that for the next couple of days until hopefully the steroid effect wears off. I should note she did have an MRI of the brain on 07/21/16, which revealed postsurgical changes, but no evidence of recurring tumor. There are also nonspecific white matter changes seen. [id number]/[facility] #: [id number] [facility]ATRIC CENTERAnahi
== END 2018-02-25 15:49 | disposition home or self-care (01) ==
LOC: ED 13:12
DX: F41.9 Anxiety disorder, unspecified (principal); R42 Dizziness and giddiness; Z88.5 Allergy status to narcotic agent; Z87.891 Personal history of nicotine dependence
CPT/HCPCS: 36415; 70450; 71045; 80053; 83605; 84484; 85025; 85610; 85730; 93005; 99282; A9270-GY

== ENCOUNTER 2018-03-09 15:19 | Emergency (ER) | payer MEDICARE, OTHER ==
[2018-03-09] MEDS ORDERED: NS 0.9% 1000 ML* 1,000 ML IV ONE (16:03)
[2018-03-09] MEDS ORDERED: Famotidine IV* 10 MG/ML 2 ML (20 mg) IV SLOW PU ONE (16:03)
[2018-03-09] MEDS ORDERED: diPHENhydraMINE PO* 50 MG PO ONE (16:03)
[2018-03-09] MEDS ORDERED: Dexamethasone IV* 4 MG/ML 1 ML (4 MG) IV SLOW PU ONE (16:03)
--- NOTE | 2018-03-09 16:54 | ED ---
Allergic Reaction/Systemic - HPI Summary HPI Summary: Patient is 72-year-old female presenting to the ED after a bee sting. Patient is allergic to bee stings. Approximately 20 minutes after the bee sting, she became lightheaded and used her EpiPen. At which time she came to the ED for evaluation. She denies any dysphagia or odynophagia or feelings of throat closing. She denies any difficulty breathing or other airway compromise. She states she feels "jittery." This happened to her approximately 2 weeks ago and was seen in the ED, given Decadron, famotidine and Benadryl. She had felt better and was able to be discharged home. - History of Current Complaint Chief Complaint: EDAllergicReaction Time Seen by Provider: 03/09/18 15:53 Hx Obtained From: Patient Onset/Duration: Sudden Onset Timing: Constant Severity Initially: Moderate Severity Currently: Moderate Pain Intensity: 6 Pain Scale Used: 0-10 Numeric Associated Signs And Symptoms: Positive: Lightheadedness - Related Hx Possible Reaction To: Unknown - Allergies/Home Medications Allergies/Adverse Reactions: Allergies Allergy/AdvReac Type Severity Reaction Status Date / Time bee venom protein (honey bee) Allergy Rash Verified 03/09/18 15:35 oxycodone Allergy Rash And Verified 03/09/18 15:35 Itching PMH/Surg Hx/FS Hx/Imm Hx Previously Healthy: Yes Endocrine/Hematology History: Denies: Hx Anticoagulant Therapy, Hx Diabetes, Hx Thyroid Disease Cardiovascular History: Reports: Hx Angina Denies: Hx Coronary Artery Disease, Hx Hypertension, Hx Pacemaker/ICD, Hx Valvular Heart Disease, Other Cardiovascular Problems/Disorders Respiratory History: Reports: Hx Asthma - PRN INHALER, Hx Pneumonia Denies: Hx Chronic Obstructive Pulmonary Disease (COPD), Other Respiratory Problems/Disorders GI History: Reports: Hx Gastroesophageal Reflux Disease Denies: Other GI Disorders History: Denies: Hx Renal Disease Musculoskeletal History: Reports: Hx Arthritis - LOWER BACK AND KNEES, Hx Osteoporosis Sensory History: Reports: Hx Contacts or Glasses, 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 SURGERY FOR ACOUSTIC NEUROMA. [facility]ONS NEUROMA REMOVED-[facility] [place]. 08/13/13 RT WRIST FRACTURE REPAIR WITH METAL. 12/29/13 - Rt RTC REPAIR Hx Anesthesia Reactions: No - Immunization History Date of Tetanus Vaccine: up to date Date of Influenza Vaccine: 2015 Hx Pertussis Vaccination: No Immunizations Up to Date: Yes Infectious Disease History: No Infectious Disease History: Denies: Hx Hepatitis, Hx Human Immunodeficiency Virus (HIV), Traveled Outside the [place] in Last 30 Days - Family History Known Family History: Positive: Cardiac Disease - Hx in father, Other - Hx peritoneal CA in mother - Social History Occupation: Unemployed Lives: With Family Alcohol Use: Occasionally Alcohol Amount: 1-2 PER MONTH Hx Substance Use: No Substance Use Type: Reports: None Hx Tobacco Use: Yes - Uses "E-cigarette" Smoking Status (MU): Former Smoker Type: Cigarettes, eCigarettes Amount Used/How Often: 1/2-3/4 PPDX 30 YEARS OFF AND ON Length of Time of Smoking/Using Tobacco: 35 years Have You Smoked in the Last Year: No Review of Systems Negative: Fever, Chills, Skin Diaphoresis Negative: Drainage, Erythema Negative: Nasal Discharge Positive: Palpitations - feelings of palpitations. Negative: Chest Pain Negative: Shortness Of Breath, Cough Genitourinary: Negative Positive: no symptoms reported, see HPI Positive: Other - small erythematous area over the L knee from an apparent bee sting Neurological: Other Psychological: Normal All Other Systems Reviewed And Are Negative: Yes Physical Exam Triage Information Reviewed: Yes Vital Signs On Initial Exam: Initial Vitals Temp Pulse Resp BP Pulse Ox 98.7 F 81 16 147/102 95 03/09/18 15:29 03/09/18 15:29 03/09/18 15:29 03/09/18 15:29 03/09/18 15:29 Vital Signs Reviewed: Yes Appearance: Positive: Well-Appearing, Well-Nourished Skin: Positive: Warm, Skin Color Reflects Adequate Perfusion, Other - small erythematous area over the L knee from an apparent bee sting Head/Face: Positive: Normal Head/Face Inspection Eyes: Positive: EOMI, CLARE, Conjunctiva Clear Neck: Positive: Supple Respiratory/Lung Sounds: Positive: Clear to Auscultation, Breath Sounds Present Cardiovascular: Positive: RRR, Pulses are Symmetrical in both Upper and Lower Extremities. Negative: Tachycardia, Leg Edema Left, Leg Edema Right Musculoskeletal: Positive: Normal, Strength/ROM Intact Neurological: Positive: Alert, Oriented to Person Place, Time, Speech Normal Psychiatric: Positive: Normal, Affect/Mood Appropriate AVPU Assessment: Alert Diagnostics - Vital Signs Vital Signs Temp Pulse Resp BP Pulse Ox 03/09/18 16:26 73 14 130/85 95 03/09/18 16:00 78 20 96 03/09/18 15:57 78 96 03/09/18 15:56 82 144/85 95 03/09/18 15:29 98.7 F 81 16 147/102 95 - Laboratory Lab Statement: Any lab studies that have been ordered have been reviewed, and results considered in the medical decision making process. Allergic Reaction Course/Dx - Course Course Of Treatment: After patient used her own EpiPen at home she arrives to the ED for further evaluation. She is given 10 mg Decadron, 50 mg oral Benadryl as we are out of IV and 40 mg famotidine IV. She is also given 1 L fluids. Approximately 1.5 hours after given these meds she continues to feel somewhat dizzy, but her jittery feeling has improved. Continues to deny any airway compromise, difficulty breathing, wheezing, odynophagia, dysphagia or feelings of throat closing. She is given 1 meclizine with good relief. She states she is well for discharge. I've given her return precautions as well as a prescription for 20 mg prednisone 4 days. She will continue take Benadryl as needed. - Diagnoses Provider Diagnoses: Allergic reaction, Bee sting Discharge - Sign-Out/Discharge Documenting (check all that apply): Patient Departure - Discharge Plan Condition: Stable Disposition: HOME Prescriptions: Meclizine TAB* [Antivert 12.5 TAB*] 12.5 mg PO TID PRN #12 tab MDD 3 PRN Reason: Dizziness predniSONE [Prednisone 20 MG TAB] 20 mg PO DAILY #4 tablet Referrals: Leland Canas MD [Primary Care Provider] - Additional Instructions: prednisone daily starting tomorrow meclizine up to three times daily for dizziness - Billing Disposition and Condition Condition: STABLE Disposition: Home
[2018-03-09] MEDS ORDERED: Meclizine TAB* 12.5 MG PO ONE (18:25)
[2018-03-09 19:00] VITALS: BP 128/79
== END 2018-03-09 18:57 | disposition home or self-care (01) ==
LOC: ED 15:19
DX: T63.441A Toxic effect of venom of bees, accidental (unintentional), initial encounter (principal); Y92.9 Unspecified place or not applicable; J45.909 Unspecified asthma, uncomplicated; Z87.891 Personal history of nicotine dependence
CPT/HCPCS: 96361; 96374; 96375; 99283; A9270-GY; J1100

== ENCOUNTER 2018-06-24 00:56 | Emergency (ER) | payer MEDICARE, OTHER ==
[2018-06-24] MEDS ORDERED: HYDROmorphone TAB* 4 MG PO ONE (01:00)
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
[2018-06-24 01:37] VITALS: BP 158/91
== END 2018-06-24 02:27 | disposition home or self-care (01) ==
LOC: ED 00:56
DX: S42.201A Unspecified fracture of upper end of right humerus, initial encounter for closed fracture (principal); W01.0XXA Fall on same level from slipping, tripping and stumbling without subsequent striking against object, initial encounter; Y92.9 Unspecified place or not applicable; Z87.891 Personal history of nicotine dependence; J45.909 Unspecified asthma, uncomplicated; K21.9 Gastro-esophageal reflux disease without esophagitis; F41.0 Panic disorder [episodic paroxysmal anxiety]
CPT/HCPCS: 99283; A9270-GY

== ENCOUNTER 2018-10-08 10:29 | Inpatient (IN) | payer MEDICARE, OTHER ==
--- NOTE | 2018-09-29 14:12 | HP ---
HISTORY AND PHYSICAL: DATE OF ADMISSION/SURGERY: 10/08/18 DATE OF OFFICE VISIT: 09/25/18 SURGEON: Inna Corbett MD.* (DICTATED BY JINA QUIROS) PROCEDURE: Right total knee arthroplasty. CHIEF COMPLAINT: Right knee pain. HISTORY OF PRESENT ILLNESS: Ms. Louie is a 73-year-old female with continued complaints of right knee pain. She has failed conservative treatment and elected to proceed with a right total knee arthroplasty. PAST MEDICAL HISTORY: Asthma, depression, anxiety, and GERD. PAST SURGICAL HISTORY: Acoustic neuroma excision, right knee scope x2, right shoulder rotator cuff repair, Gracia's neuroma excision, and an ORIF of the right wrist. CURRENT MEDICATIONS: 1. Pantoprazole sodium 40 mg daily. 2. Ventolin inhaler 2 puffs 4 times a day as needed. 3. Sertraline 100 mg 1-1/2 to 2 tabs daily. 4. Trazodone as needed. ALLERGIES: To OXYCODONE and BEE STINGS. OXYCODONE causes hives. FAMILY HISTORY: Coronary artery disease, stroke, and cancer. SOCIAL HISTORY: She is a 73-year-old female. She lives with her . She does not smoke or use drugs. REVIEW OF SYSTEMS: A complete 14-point review of systems was reviewed with the patient. It was positive for asthma and GERD. She denies history of DVT, PE, hepatitis, HIV, or anesthesia problems. PHYSICAL EXAMINATION GENERAL: She is well developed, well nourished, in no acute distress. VITAL SIGNS: She stands 5 feet 6 inches tall, weighs 197 pounds. Blood pressure is 130/80, heart rate is 80. HEENT: Normocephalic, atraumatic. NECK: Supple. No palpable lymph nodes. PULMONARY: The lungs are clear to auscultation bilaterally. CARDIO: Regular rate and rhythm. Strong S1, S2. ABDOMEN: Soft, nontender, nondistended. NEUROLOGICAL: She is alert and oriented x3. MUSCULOSKELETAL: Right lower extremity: The skin is intact. There are no open wounds or abrasions. There is a moderate effusion of the right knee, some tenderness over the medial and lateral joint line. Range of motion is 10 to 100 degrees of flexion. Some tenderness over the medial joint line. She is able to dorsiflex and plantarflex. She has a 2+ dorsalis pedis pulse and intact sensation. ASSESSMENT AND PLAN: Ms. Louie is a 73-year-old female with continued complaints of right knee pain secondary to endstage osteoarthritis. She has failed conservative treatment and elected to proceed with a right total knee arthroplasty. The surgery is scheduled for 10/08/[address] Corbett discussed the risks and benefits of the surgery at today's visit and all of her questions were answered. She will follow up with Dr. Corbett 2 weeks after the surgery. JINA QUIROS [id number]/[facility] #: [id number] AVA
[~2018-10-08 10:29] MED LIST: Buffered Lidocaine 1% SYRIN* 1 ML/SYRINGE INTRADERM ONE; Dexamethasone IV* 4 MG/ML 1 ML (4 MG) IV SLOW PU ONE; Dexamethasone IV* 4 MG/ML 1 ML (4 MG) ONE; DiMENhydriNATE IV* 50 MG/ML VIAL IV PUSH PRN; Famotidine IV* 10 MG/ML 2 ML (20 mg) IV ONE; Famotidine IV* 10 MG/ML 2 ML (20 mg) ONE; Gabapentin CAP(*) 300 MG ONE; Gabapentin CAP(*) 300 MG PO ONE; Lactated Ringers 1000 ML Bag* 1,000 ML IV SCH; Levalbuterol 0.63MG/3ML NEB* UNIT OF USE INH PRN; Naloxone* 0.4 MG/ML 1 ML VIAL IV PRN; Ondansetron ODT TAB* 4 MG ONE; PROCHLORPERAZINE INJ 5 MG/ML 2 ML VIAL IV PRN; Scopolamine 1.5 mg* PATCH TRANSDERM PRN; Tranexamic Acid 1,000 MG in NS 0.9% 50 ML* (outpatient use) IV SCH; ceFAZolin 2 GM PREMIX in ORs 2 GM/50 ML BAG IVPB ONE
--- OUTSIDE RECORDS SUMMARY | 2018-10-08 10:33 | XMS REPORT | Continuity of Care Document ---
:1945 External Reference #:[id number] Author Name Irma Keys Care Team Providers Name Role Phone Leland Canas MD Primary Care Physician Unavailable Payers Date Identification Numbers Payment Provider Subscriber Policy Number: [id number] Medicare Sahra O Liban PayID: [id number] [address] [place] [address] Effective: 2012 Policy Number: [id number] Medicare Sahra O Liban Expires: 2018 PayID: [id number] [address] [place] [address] Policy Number: [id number] [employer] Sahra O Libna Group Number: [id number] [address] PayID: [id number] [place] [address] Advance Directives Description No Information Available Problems Date Description Provider Status Onset: 07/10/2018 Unspecified fracture of upper end of Inna Corbett M.D. Active right humerus, subsequent encounter for fracture with routine healing Onset: 07/27/2018 Closed fracture of upper end of humerus Inna Corbett M.D. Active Onset: 08/19/2018 Localized, primary osteoarthritis Inna Corbett M.D. Active Onset: 08/19/2018 Localized, secondary osteoarthritis Inna Corbett M.D. Active Family History Date Family Member(s) Observation Comments General Heart Disease General Diabetes General Cancer Father Coronary Artery Disease (CAD) 3 vessel CABG Father Heart Disease Mother Cancer Peritoneal Social History Type Date Description Comments Sex Unknown Marital Status Lives With Occupation Retired Tobacco Use Start: Unknown Former Cigarette End: Unknown Smoker Smoking Status Reviewed: 09/14/18 Former Cigarette Smoker ETOH Use Rarely consumes alcohol Tobacco Use Start: Unknown Patient is a former uses electronic End: Unknown smoker cigarette, smoked cigarettes for 20yrs 1PPD Recreational Drug Use Denies Drug Use Exercise Type/Frequency none regular Exercise Type/Frequency Does not exercise Allergies, Adverse Reactions, Alerts Date Description Reaction Status Severity Comments 08/02/2013 Oxycodone Active gets itching and takes with benadryl as needed. 08/15/2016 Bee Sting Active Severe Medications Medication Date Status Form Strength Qnty SIG Indications Ordering Provider Gabapentin 07/27/ Active Capsules 300mg 30caps 1 tab by S42.201A Inna 2019 mouth Aric, before bed M.D. Hydromorphone 06/29/ Active Tablets 2mg 42tabs take 1 tab M25.511 Inna HCL 2019 every 6-8 Aric, hours as M.D. needed for pain Pantoprazole / Active Tablets DR 40mg 1 by mouth Unknown Sodium 0000 each morning Metaxalone / Active Tablets 800mg take 1 Unknown 0000 tablet every 8 hrs prn Ipratropium / Active Solution 0.5-2.5(3) use qid Unknown [place]/Albuter 0000 mg/3ML prn for ol Sulfate shortness of breath Ventolin HFA / Active Aerosol 108(90Base 2 puffs by Unknown 0000 ) mcg/Act mouth four times a day as needed Epipen 2-Avtar / Active Solution 0.3mg/0.3M use as Unknown 0000 Auto-Injec L directed t Sertraline HCL / Active Tablets 100mg 1 and 1/2 Unknown 0000 to 2 tabs once daily Trazodone HCL / Active Unknown 0000 Meloxicam / Active Unknown 0000 Percocet 12/20/ Hx Tablets 5-325mg 40tabs take 1 Salvador 2013 - tabs by Remy 06/28/ mouth q6 M.D. 2019 hours as needed pain Mobic 09/20/ Hx Tablets 7.5mg 60tabs 1 by mouth Nga 2013 - twice a Duran-Yo 01/10/ day as haley, MTenzin 2013 needed [place] 08/02/ Hx Tablets 10-325mg 40tabs 1 by mouth Salvador 2013 - every 6 Young, 06/28/ hours as M.D. 2019 needed (pt not taking) Prilosec / Hx twice Unknown 0000 - daily 2016 Xanax / Hx .25mg one po 2x Unknown 0000 - daily prn 2018 Trazodone HCL / Hx bid Unknown 0000 - 2016 Sertraline HCL / Hx bid Unknown 0000 - 2016 Sucralfate / Hx Tablets 1gm 1 tab Unknown 0000 - prior to and 2018 at bed time prn Morphine / Hx Solution 100mg/5ML 06/05 - 06/03 Unknown Sulfate 0000 - ml po (Concentrate) 09/30/ q6hrs prn 2016 Medications Administered in Office Medication Date Status Form Strength Qnty SIG Indications Ordering Provider Depomedrol Administered Injection Inna 40MG 019 Paula Corbett Celestone 3 mg Administered Injection Nga and 3mg 014 Na capone M.D. Depomedrol Administered Injection Rodolfo 80MG 012 Paula Nicolas Depomedrol Administered Injection Harper, Lien, 40MG 010 PA Immunizations Description No Information Available Vital Signs Date Vital Result Comment 09/14/2018 8:09am Height 66 inches 5'6" Weight 200.00 lb BP Systolic 136 mmHg BP Diastolic 76 mmHg Body Temperature 97.9 F Pain Level 6 BMI (Body Mass Index) 32.3 kg/m2 08/19/2018 10:11am Height 65 inches 5'5" Weight 195.00 lb BP Systolic 122 mmHg BP Diastolic 71 mmHg Respiratory Rate 16 /min Pain Level 8 BMI (Body Mass Index) 32.4 kg/m2 07/27/2018 1:17pm Height 65 inches 5'5" Weight 206.00 lb Heart Rate 77 /min BP Systolic 130 mmHg BP Diastolic 82 mmHg Respiratory Rate 18 /min Body Temperature 98.2 F Pain Level 7 BMI (Body Mass Index) 34.3 kg/m2 07/10/2018 2:02pm Height 66 inches 5'6" Weight 208.00 lb BP Systolic 107 mmHg BP Diastolic 66 mmHg Respiratory Rate 16 /min Pain Level 4 BMI (Body Mass Index) 33.6 kg/m2 06/29/2018 3:19pm Height 66 inches 5'6" Weight 208.00 lb Heart Rate 64 /min BP Systolic 126 mmHg BP Diastolic 70 mmHg Body Temperature 98.8 F Pain Level 6 BMI (Body Mass Index) 33.6 kg/m2 10/01/2016 2:51pm Height 66 inches 5'6" Weight 205.00 lb w/shoes Heart Rate 82 /min BP Systolic Sitting 128 mmHg LA lg cuff BP Diastolic Sitting 84 mmHg LA lg cuff BMI (Body Mass Index) 33.1 kg/m2 Ejection Fraction 55-60% Echo 08/22/16 08/15/2016 2:38pm Height 66 inches 5'6" Weight 201.25 lb w/shoes Heart Rate 74 /min BP Systolic Sitting 142 mmHg LA lg cuff BP Diastolic Sitting 80 mmHg LA lg cuff BMI (Body Mass Index) 32.5 kg/m2 03/24/2014 12:11pm Height 66 inches 5'6" Heart Rate 64 /min BP Systolic 127 mmHg BP Diastolic 79 mmHg 02/24/2014 10:25am Height 66 inches 5'6" Weight 190.00 lb Pain Level 8 BMI (Body Mass Index) 30.7 kg/m2 01/11/2014 1:16pm Height 66 inches 5'6" Weight 190.00 lb Heart Rate 50 /min BP Systolic 136 mmHg BP Diastolic 107 mmHg BMI (Body Mass Index) 30.7 kg/m2 12/20/2013 10:43am Height 66 inches 5'6" Weight 194.00 lb Heart Rate 75 /min BP Systolic 120 mmHg BP Diastolic 74 mmHg BMI (Body Mass Index) 31.3 kg/m2 11/25/2013 8:54am Height 66 inches 5'6" Weight 195.00 lb Heart Rate 68 /min BP Systolic 128 mmHg BP Diastolic 80 mmHg BMI (Body Mass Index) 31.5 kg/m2 11/04/2013 10:24am Height 66 inches 5'6" Weight 200.00 lb Heart Rate 92 /min BP Systolic 117 mmHg BP Diastolic 75 mmHg BMI (Body Mass Index) 32.3 kg/m2 10/06/2013 11:23am Height 66 inches 5'6" Weight 200.00 lb Heart Rate 64 /min BP Systolic 116 mmHg BP Diastolic 77 mmHg BMI (Body Mass Index) 32.3 kg/m2 09/20/2013 1:06pm Height 66 inches 5'6" Heart Rate 85 /min BP Systolic 122 mmHg BP Diastolic 76 mmHg 09/08/2013 9:56am Height 66 inches 5'6" Weight 200.00 lb Heart Rate 76 /min BMI (Body Mass Index) 32.3 kg/m2 08/23/2013 10:14am Heart Rate 77 /min BP Systolic 144 mmHg BP Diastolic 96 mmHg 08/10/2013 8:41am Height 66 inches 5'6" Weight 190.00 lb Heart Rate 75 /min BP Systolic 115 mmHg BP Diastolic 85 mmHg BMI (Body Mass Index) 30.7 kg/m2 08/02/2013 9:45am Height 66 inches 5'6" Weight 195.00 lb Heart Rate 62 /min BP Systolic 115 mmHg BP Diastolic 74 mmHg BMI (Body Mass Index) 31.5 kg/m2 Results Description No Information Available Procedures Date Code Description Status 08/19/201802424 Inject/Drain Joint/Bursa Major W/O US Completed 09/25/2016 79265 Treadmill Interp/Report Only Completed 09/25/2016 05458 Stress Test Supervsn W/Out I/R Completed 08/22/2016 88004 ECHO Transthoracic, Real-Time 2D With Doppler And Color Completed Flow 08/15/2016 55586 EKG Tracing & Interpretation Completed 07/23/2016 57841 Stress ECHO Interpretation/Report [facility] Completed 07/23/2016 66704 Treadmill Interp/Report Only Completed 07/23/2016 60017 Stress Test Supervsn W/Out I/R Completed 07/23/2016 55016 EKG, Interpretation Only Completed 07/20/2016 72067 EKG, Interpretation Only Completed 12/29/2013 87704 Arthroscopy Shoulder,W/Rotator Cuff Repair Completed 12/29/2013 29517 Arthroscopy Shoulder,W/Rotator Cuff Repair Completed 12/29/2013 92855 Arthroscopy Shoulder Debridement Extensive Completed 12/29/2013 96760 Arthroscopy Shoulder Debridement Extensive Completed 11/04/2013 77674 Rad Shoulder Comp, Min. 2 Views Completed 10/06/2013 49612 Rad Exam; Elbow, Comp Completed 09/08/2013 11501 Rad Exam; Wrist Limited, 2 Views Completed 09/08/2013 50261 Inject Tendon Sheath Or Ligament Aponeurosis Eg Plantar Completed Fascia 08/23/2013 26827 Rad Exam; Wrist Limited, 2 Views Completed 08/23/2013 63139 Rad Exam; Wrist Limited, 2 Views Completed 08/23/2013 40983 Short Arm Splint Application Completed 08/13/2013 50237 Open TX Of Distal Radial Intra-Articular FX Or Epiphyseal Completed Jann 08/13/2013 01775 Open TX Of Distal Radial Intra-Articular FX Or Epiphyseal Completed Jann 08/10/2013 24637 Rad Exam; Wrist Limited, 2 Views Completed 08/02/2013 82375 Rad Exam; Wrist, Comp, Min 3 Views Completed 08/02/2013 86390 CLST TRMT Distal Radial FX Completed 04/30/2012 91210 Inject/Drain Joint/Bursa Major W/O US Completed 10/31/2009 09896 Xray Knee 3 Views Completed 10/31/2009 61075 Rad Exam; Knee, Ap&L Completed 10/31/2009 80368 Inject/Drain Joint/Bursa Major W/O US Completed Encounters Type Date Location Provider Dx Diagnosis Office Visit 08/19/2018 Orthopedic Inna Corbett, M25.561 Pain in right 9:45a [facility] M.D. knee M25.461 Effusion, right knee M25.511 Pain in right shoulder M17.31 Unilateral post-traumatic osteoarthritis, right knee S42.201D Unsp fx upper end of r humerus, subs for fx w dora razo Office Visit 07/27/2018 1:15p Will Corbett, S42.201D Unsp fx upper [facility]. end of r [facility] humerus, subs for fx w dora razo M25.511 Pain in right shoulder Office Visit 07/10/2018 2:00p Will Corbett, S42.201A Unsp fracture [facility] M.D. of upper end of [facility] right humerus, init W19.xxxA Unspecified fall, initial encounter Office Visit 06/29/2018 2:45p Will Corbett M25.511 Pain in right [facility] M.D. shoulder S42.201A Unsp fracture of upper end of right humerus, init W19.xxxA Unspecified fall, initial encounter Office Visit 02/25/2018 Neurohospitalist Bebeto Meredith0.0 Anesthesia of 7:00a [facility] [place], M.D. skin R42 Dizziness and giddiness Office Visit 10/01/2016 3:00p Nilo Pickens S. R07.9 Chest pain, Cardiology Paula Fuller unspecified Z87.891 Personal history of nicotine dependence F41.9 Anxiety disorder, unspecified E66.9 Obesity, unspecified Z68.33 Body mass index (BMI) 33.0-33.9, adult Office Visit 08/15/2016 3:00p Carlinleyla Pickens S. R07.9 Chest pain, Cardiology Paula Fuller unspecified E66.9 Obesity, unspecified Z68.32 Body mass index (BMI) 32.0-32.9, adult Z87.891 Personal history of nicotine dependence Office Visit 07/24/2016 3:20p [facility] Kaden R07.9 Chest pain, Assoc,pc MD Aman unspecified Hospitalists F45.0 Somatization disorder F41.9 Anxiety disorder, unspecified K21.9 Gastro-esophageal reflux disease without esophagitis Office Visit 07/23/2016 3:19p [facility] Kaden R07.9 Chest pain, Assoc,pc MD Aman unspecified Hospitalists K21.9 Gastro-esophageal reflux disease without esophagitis J45.909 Unspecified asthma, uncomplicated F41.9 Anxiety disorder, unspecified Office Visit 07/22/2016 Carlin Susu Smithua R07.9 Chest pain, 3:21p Assoc,pc Kobi, N.P. unspecified Hospitalists J45.909 Unspecified asthma, uncomplicated K21.9 Gastro-esophageal reflux disease without esophagitis F41.9 Anxiety disorder, unspecified Office Visit 07/21/2016 1:12p [facility] Kaden R07.9 Chest pain, Assoc,pc MD Aman unspecified Hospitalists R74.8 Abnormal levels of other serum enzymes K21.9 Gastro-esophageal reflux disease without esophagitis Office Visit 07/21/2016 Neurohospitalist Keanu R20.0 Anesthesia of 3:23p Meena Duque M.D. skin Office Visit 07/20/2016 [facility] Kaden R07.9 Chest pain, 1:11p Assoc,pc Hospitalileana Newton MD unspecified R74.8 Abnormal levels of other serum enzymes K21.9 Gastro-esophageal reflux disease without esophagitis F41.9 Anxiety disorder, unspecified Office Visit 11/25/2013 8:45a Orthopedic Salvador Alberto 840.9 Sprains & [facility] [place] Strains Shoulder & Upper Arm Unspec Office Visit 11/04/2013 10:45a Orthopedic Salvador Alberto 840.9 Sprains & [facility] [place] Strains Shoulder & Upper Arm Unspec Office Visit 04/30/2012 2:00p Orthopedic Rodolfo 924.11 Contusion Knee [facility] Nicolas M.D. 715.96 Osteoarthrosis Unspec Genlzd Or Localized Lower Leg Office Visit 11/29/2009 10:00a Orthopedic Nancy Harper 836.3 Dislocation Knee [facility] [place]ella Closed [facility] Office Visit 10/31/2009 10:30a Orthopedic Nancy Harper 716.96 Arthropathy Unspec [facility] [place] Lower Leg [facility]of[facility] 844.9 Sprains & Strains Knee & Leg Unspec Plan of Treatment Future Appointment(s):09/25/2018 9:30 am - Inna Corbett M.D. at [facility]09/14/2018 - Inna Corbett M.D.M25.561 Pain in right kneeFollow up:Follow up: 7-10 days before wcbcexxK12.461 Effusion, right kneeM25.511 Pain in right jjgevlasE80.31 Unilateral post-traumatic osteoarthritis, right kneeS42.201A Unspecified fracture of upper end of right humerus, initialNew Xrays:Shoulder Right 2+ VWS, Ordered: 09/14/18
--- OUTSIDE RECORDS SUMMARY | 2018-10-08 10:33 | XMS REPORT | Continuity of Care Document ---
:1945 External Reference #:[id number] Author Name JINA Burks Address [address], [place] [address] Care Team Providers Name Role Phone Leland Canas MD Primary Care Physician Unavailable Payers Date Identification Numbers Payment Provider Subscriber Policy Number: [id number] Medicare Yash Louie PayID: [id number] [address] [facility] [place] [address] Effective: 2012 Policy Number: [id number] Medicare Yash Louie Expires: 2018 PayID: [id number] [address] [place] [address] Policy Number: [id number] [employer] Yash Louie Group Number: [id number] [address] PayID: [id number] [place] [address] Advance Directives Description No Information Available Problems Active Problems Provider Date Unspecified fracture of upper end of right Inna Corbett M.D. Onset: 2018 humerus, subsequent encounter for fracture with routine healing Closed fracture of upper end of humerus Inna Corbett M.D. Onset: 07/27/2018 Localized, primary osteoarthritis Inna Corbett M.D. Onset: 08/19/2018 Localized, secondary osteoarthritis Inna Corbett M.D. Onset: 08/19/2018 Family History Date Family Member(s) Observation Comments General Heart Disease General Diabetes General Cancer Father Coronary Artery Disease (CAD) 3 vessel CABG Father Heart Disease Mother Cancer Peritoneal Social History Type Date Description Comments Sex Unknown Marital Status Lives With Occupation Retired Tobacco Use Start: Unknown Former Cigarette End: Unknown Smoker Smoking Status Reviewed: 09/25/18 Former Cigarette Smoker ETOH Use Rarely consumes alcohol Tobacco Use Start: Unknown Patient is a former uses electronic End: Unknown smoker cigarette, smoked cigarettes for 20yrs 1PPD Recreational Drug Use Denies Drug Use Exercise Type/Frequency none regular Exercise Type/Frequency Does not exercise Allergies, Adverse Reactions, Alerts Active Allergies Reaction Severity Comments Date Oxycodone gets itching and takes with benadryl as 08/02/2013 needed. Bee Sting Severe 08/15/2016 Medications Active Medications SIG Qnty Indications Ordering Provider Date Pantoprazole Sodium 1 by mouth each Unknown 40mg morning Tablets DR Ventolin HFA 2 puffs by mouth Unknown 108(90Base) four times a day mcg/Act Aerosol as needed Epipen 2-Avtar use as directed Unknown 0.3mg/0.3ML Solution Auto-Inject Sertraline HCL 1 and 1/2 to 2 Unknown 100mg tabs once daily Tablets Trazodone HCL Unknown History Medications Gabapentin 1 tab by mouth 30caps S42.201A Inna Corbett, 07/27/2018 - 300mg before bed M.D. Unknown Capsules Hydromorphone HCL take 1 tab every 42tabs M25.511 Inna Corbett, 2018 - 2mg 6-8 hours as M.D. Unknown Tablets needed for pain Percocet take 1 tabs by 40tabs Salvador Alberto, 12/20/2013 - 5-325mg mouth q6 hours M.D. 06/28/2018 Tablets as needed pain Mobic 1 by mouth twice 60tabs Nga 09/20/2013 - 7.5mg Tablets a day as needed Duran-Remy, 01/10/2014 M.D. Cuney 1 by mouth every 40tabs Salvador Alberto, 08/02/2013 - 10-325mg Tablets 6 hours as M.D. 06/28/2018 needed (pt not taking) Prilosec twice daily Unknown - 08/12/2016 Xanax one po 2x daily Unknown - .25mg prn 06/28/2018 Trazodone HCL bid Unknown - 08/11/2016 Sertraline HCL bid Unknown - 08/12/2016 Sucralfate 1 tab prior to Unknown - 1gm Tablets meals and at bed 06/28/2018 time prn Metaxalone take 1 tablet Unknown - 800mg every 8 hrs prn 09/23/2018 Tablets Ipratropium use qid prn for Unknown - [place]/Albuterol shortness of 09/23/2018 Sulfate breath 0.5-2.5(3)mg/3ML Solution Morphine Sulfate 1/4 - 1/2 ml po Unknown - (Concentrate) q6hrs prn 09/30/2016 100mg/5ML Solution Meloxicam Unknown - 09/23/2018 Medications Administered in Office Medication SIG Qnty Indications Ordering Provider Date Depomedrol 40MG Inna Corbett M.D. 08/19/2018 Injection Celestone 3 mg and 3mg Nga Rendon 09/08/2013 Reyes Mitchell Depomedrol 80MG Rodolfo Nicolas M.D. 04/30/2012 Injection Depomedrol 40MG Nancy Harper PA 10/31/2009 Injection Immunizations Description No Information Available Vital Signs Date Vital Result Comment 09/25/2018 10:11am Height 66 inches 5'6" Weight 197.00 lb Heart Rate 80 /min BP Systolic 130 mmHg BP Diastolic 80 mmHg Pain Level 5 BMI (Body Mass Index) 31.8 kg/m2 09/14/2018 8:09am Height 66 inches 5'6" Weight [...] BMI (Body Mass Index) 31.5 kg/m2 Results Test Date Facility Test Result H/L Range Note Urinalysis Profile 09/25/2018 [facility] Urine Color Yellow [address] [place] [address] [phone] Urine Appearance Clear Urine Specific [place] 1.020 N 1.010-1.030 Urine pH 5.0 N 5-9 Urine Urobilinogen Negative Negative Urine Ketones Negative Negative Urine Protein Negative Negative Urine Leukocytes Negative Negative Urine Blood Negative Negative Urine Nitrite Negative Negative Urine Bilirubin Negative Negative Urine Glucose Negative Negative CBC Auto Diff 09/25/2018 [facility] White Blood 8.1 10^3/uL N 3.5-10.[address] [place] [address] [phone] Red Blood Count 4.81 10^6/uL N 3.70-4.87 Hemoglobin 13.9 g/dL N 12.0-16.0 Hematocrit 41 % N 33-41 Mean Corpuscular Volume 86 fL N 80-97 Mean Corpuscular Hemoglobin 29 pg N 27-31 Mean Corpuscular HGB Conc 34 g/dL N 31-36 Red Cell Distribution Width 14 % N 10.5-15 Platelet Count 296 10^3/uL N 150-450 Mean Platelet Volume 7.9 fL N 7.4-10.4 Abs Neutrophils 4.8 10^3/uL N 1.5-7.7 Abs Lymphocytes 2.4 10^3/uL N 1.0-4.8 Abs Monocytes 0.7 10^3/uL N 0-0.8 Abs Eosinophils 0.1 10^3/uL N 0-0.6 Abs Basophils 0.1 10^3/uL N 0-0.2 Abs Nucleated RBC 0 10^3/uL Granulocyte % 59.5 % Lymphocyte % 29.8 % Monocyte % 8.8 % Eosinophil % 0.8 % Basophil % 1.1 % Nucleated Red Blood Cells % 0.1 Inr/Protime 09/25/2018 [facility] Inr 0.99 N 0.82-1.[address] [place] [address] [phone] Laboratory test 09/25/2018 [facility] Partial 31.1 seconds N 26.0-36.[address] [place] [address] PTT [phone] Comp Metabolic 09/25/2018 [facility] Sodium 140 mmol/L N 135- [address] [place] [address] [phone] Potassium 4.0 mmol/L N 3.5-5.0 Chloride 105 mmol/L N 101-111 Co2 Carbon Dioxide 27 mmol/L N 22-32 Anion Gap 8 mmol/L N 2-11 Glucose 97 mg/dL N 70-100 Blood Urea Nitrogen 14 mg/dL N 6-24 Creatinine 0.83 mg/dL N 0.51-0.95 BUN/Creatinine Ratio 16.9 N 8-20 Calcium 9.7 mg/dL N 8.6-10.3 Total Protein 7.0 g/dL N 6.4-8.9 Albumin 4.4 g/dL N 3.2-5.2 Globulin 2.6 g/dL N 2-4 Albumin/Globulin Ratio 1.7 N 1-3 Total Bilirubin 0.40 mg/dL N 0.2-1.0 Alkaline Phosphatase 88 U/L N 34-104 Alt 11 U/L N 7-52 Ast 13 U/L N 13-39 Egfr Non- 67.8 >60 Egfr 82.0 >60 4 Type & Screen 09/25/2018 [facility] Patient Blood Type O Positive [address] [place] [address] [phone] Antibody Screen NEGATIVE Urine Culture And 09/25/2018 [facility] Urine Culture SEE RESULT [address] [place] [address] [phone] 1 AA 10/08 2 Standard intensity warfarin therapeutic range: 2.0-3.0 High intensity warfarin therapeutic range: 2.5-3.5 3 AA 10/08 4 Because ethnic data is not always readily available, this report includes an eGFR for both -Americans and non- Americans. The National Kidney Disease Education Program (NKDEP) does not endorse the use of the MDRD equation for patients that are not between the ages of 18 and 70, are , have extremes of body size, muscle mass, or nutritional status, or are non- or non-. According to the National Kidney Foundation, irrespective of diagnosis, the stage of the disease is based on the level of kidney function: Stage Description GFR(mL/min/1.73 m(2)) 1 Kidney damage with normal or decreased GFR 90 2 Kidney damage with mild decrease in GFR 60-89 3 Moderate decrease in GFR 30-59 4 Severe decrease in GFR 15-29 5 Kidney failure <15 (or dialysis) 5 SEE RESULT BELOW Name: YASH LOUIE : [address]: Inna Corbett MD Acct: [id number] Unit: [id number] AGE: 73 Location: [facility] Re09/25/18 SEX: F Status: REG REF SPEC: [id number] MEHDI: 09/25/18 [facility] DR: Inna Corbett MD REQ: [id number] RECD: 09/25/18 STATUS: COMP HR DR: Leland Canas MD _ SOURCE: URINE SPDESC: ORDERED: Urine Culture COMMENTS: PREETI 10/08 QUERIES: Urine Source: Clean Catch Procedure Result Reported Site Urine Culture Final 09/26/18- 1333 ML No growth of clinically significant organisms * ML - Main Lab . END OF REPORT DEPARTMENT OF PATHOLOGY, [address] [place] [address] Erik Verde M.D. Director [facility] # [id number] Procedures Date Code Description Status 08/19/2018 07264 Inject/Drain Joint/Bursa Major W/O US Completed 09/25/2016 02697 Treadmill Interp/Report Only Completed 09/25/2016 62736 Stress Test Supervsn W/Out I/R Completed 08/22/2016 52307 ECHO Transthoracic, Real-Time 2D With Doppler And Color Completed Flow 08/15/2016 30766 EKG Tracing & Interpretation Completed 07/23/2016 78384 Stress ECHO Interpretation/Report Hospital Completed 07/23/2016 95716 Treadmill Interp/Report Only Completed 07/23/2016 59416 Stress Test Supervsn W/Out I/R Completed 07/23/2016 20691 EKG, Interpretation Only Completed 07/20/2016 67757 EKG, Interpretation Only Completed 12/29/2013 71076 Arthroscopy Shoulder,W/Rotator Cuff Repair Completed 12/29/2013 10846 Arthroscopy Shoulder,W/Rotator Cuff Repair Completed 12/29/2013 49603 Arthroscopy Shoulder Debridement Extensive Completed 12/29/2013 04399 Arthroscopy Shoulder Debridement Extensive Completed 11/04/2013 08936 Rad Shoulder Comp, Min. 2 Views Completed 10/06/2013 44104 Rad Exam; Elbow, Comp Completed 09/08/2013 06671 Rad Exam; Wrist Limited, 2 Views Completed 09/08/2013 27948 Inject Tendon Sheath Or Ligament Aponeurosis Eg Plantar Completed Fascia 08/23/2013 22941 Rad Exam; Wrist Limited, 2 Views Completed 08/23/2013 54091 Rad Exam; Wrist Limited, 2 Views Completed 08/23/2013 65675 Short Arm Splint Application Completed 08/13/2013 98038 Open TX Of Distal Radial Intra-Articular FX Or Epiphyseal Completed Septn 08/13/2013 02413 Open TX Of Distal Radial Intra-Articular FX Or Epiphyseal Completed Septn 08/10/2013 02475 Rad Exam; Wrist Limited, 2 Views Completed 08/02/2013 51839 Rad Exam; Wrist, Comp, Min 3 Views Completed 08/02/2013 73614 CLST TRMT Distal Radial FX Completed 04/30/201270837 Inject/Drain Joint/Bursa Major W/O US Completed 10/31/2009 38755 Xray Knee 3 Views Completed 10/31/2009 07707 Rad Exam; Knee, Ap&L Completed 10/31/200960854 Inject/Drain Joint/Bursa Major W/O US Completed Encounters Type Date Location Provider Dx Diagnosis Office Visit 09/14/2018 Orthopedic Inna Corbett, M25.561 Pain in right 8:15a [facility] M.D. knee M25.461 Effusion, right knee M25.511 Pain in right shoulder M17.31 Unilateral post-traumatic osteoarthritis, right knee S42.201A Unsp fracture of upper end of right humerus, init Office Visit 08/19/2018 9:45a Orthopedic Services Inna Corbett, M25.561 Pain in right Of [facility] M.D. knee M25.461 Effusion, right knee M25.511 Pain in right shoulder M17.31 Unilateral post-traumatic osteoarthritis, right knee S42.201D Unsp fx upper end of r humerus, subs for fx w routn heal Office Visit 07/27/2018 1:15p Orthopedic Inna Corbett, S42.201D Unsp fx upper Services Of M.D. end of r [facility] humerus, subs for fx w routn heal M25.511 Pain in right shoulder Office Visit 07/10/2018 2:00p Orthopedic Inna Corbett, S42.201A Unsp fracture Services Of M.D. of upper end of [facility] right humerus, init W19.xxxA Unspecified fall, initial encounter Office Visit 06/29/2018 2:45p Orthopedic Inna Corbett, M25.511 Pain in right [facility] M.D. shoulder S42.201A Unsp fracture of upper end of right humerus, init W19.xxxA Unspecified fall, initial encounter Office Visit 02/25/2018 [facility] Bebeto Sherman R20.0 Anesthesia of 7:00a Meena Cooney M.D. skin R42 Dizziness and giddiness Office Visit 10/01/2016 3:00p Nilo Sherman R07.9 Chest pain, Cardiology Paula Fuller unspecified Z87.891 Personal history of nicotine dependence F41.9 Anxiety disorder, unspecified E66.9 Obesity, unspecified Z68.33 Body mass index (BMI) 33.0-33.9, adult Office Visit 08/15/2016 3:00p Nilo Sherman R07.9 Chest pain, Cardiology Paula Fuller unspecified E66.9 Obesity, unspecified Z68.32 Body mass index (BMI) 32.0-32.9, adult Z87.891 Personal history of nicotine dependence Office Visit 07/24/2016 3:20p [place] Susu Alfonso R07.9 Chest pain, Assoc,pc MD Aman unspecified Hospitalists F45.0 Somatization disorder F41.9 Anxiety disorder, unspecified K21.9 Gastro-esophageal reflux disease without esophagitis Office Visit 07/23/2016 3:19p [facility] Kaden R07.9 Chest pain, Assoc,pc MD Aman unspecified Hospitalists K21.9 Gastro-esophageal reflux disease without esophagitis J45.909 Unspecified asthma, uncomplicated F41.9 Anxiety disorder, unspecified Office Visit 07/22/2016 [facility] Wale R07.9 Chest pain, 3:21p Assoc,pc Kobi, N.P. unspecified Hospitalists J45.909 Unspecified asthma, uncomplicated K21.9 Gastro-esophageal reflux disease without esophagitis F41.9 Anxiety disorder, unspecified Office Visit 07/21/2016 [facility] Keanu R20.0 Anesthesia of 3:23p [facility]ena Duque M.D. skin [facility] pain, 1:12p Assoc,pc Vasu Newton MD unspecified R74.8 Abnormal levels of other serum enzymes K21.9 Gastro-esophageal reflux disease without esophagitis Office Visit 07/20/2016 1:11p [facility] Kaden R07.9 Chest pain, Assoc,pc MD Aman unspecified Hospitalists R74.8 Abnormal levels of other serum enzymes K21.9 Gastro-esophageal reflux disease without esophagitis F41.9 Anxiety disorder, unspecified Office Visit 11/25/2013 8:45a Orthopedic Abilio Perez0.9 Sprains & Services Of C.MSofiaASofia Mitchell Strains Shoulder & Upper Arm Unspec Office Visit 11/04/2013 10:45a Orthopedic Salvador Alberto 840.9 Sprains & Services Of C.MSofiaASofia MTenzin Strains Shoulder & Upper Arm Unspec Office Visit 04/30/2012 2:00p [facility] Rodolfo 924.11 [facility]usion [facility]nee [facility] 715.96 Osteoarthrosis Unspec Genlzd Or Localized Lower Leg Office Visit 11/29/2009 10:00a Orthopedic Nancy Harper, 836.3 Dislocation Knee Services Of [place] Patella Closed [facility] Office Visit 10/31/2009 10:30a Orthopedic Nancy Harper, 716.96 Arthropathy Unspec Services Of [place] Lower Leg [facility].ASofia 844.9 Sprains & Strains Knee & Leg Unspec Plan of Treatment Future Appointment(s):10/21/2018 10:15 am - Inna Corbett M.D. at [facility]..10/08/2018 1:45 pm - Jewel Pantoja PA-C at [facility].10/08/2018 1:45 pm - JINA Burks at [facility]..10/08/2018 1:45 pm - Inna Corbett M.D. at [facility]..09/25/2018 - Inna Corbett M.D.M25.561 Pain in right kneeFollow up:Follow up: 2 weeks after pfvrskgY57.461 Effusion, right kneeM17.11 Unilateral primary osteoarthritis, right knee
--- OUTSIDE RECORDS SUMMARY | 2018-10-08 10:33 | XMS REPORT | Continuity of Care Document ---
:1945 External Reference #:[id number] Author Name Irma Keys Care Team Providers Name Role Phone Leland Canas MD Primary Care Physician Unavailable Payers Date Identification Numbers Payment Provider Subscriber Policy Number: [id number] Medicare Sahra O Liban PayID: [id number] [address] [place] [address] Effective: 2012 Policy Number: [id number] Medicare Sahra O Liban Expires: 2018 PayID: [id number] [address] [place] [address] Policy Number: [id number] [employer] Sahra O Liban Group Number: [id number] [address] PayID: [id number] [place] [address] Advance Directives Description No Information Available Problems [...] mouth each Unknown 40mg morning Tablets DR Sammi HFA 2 puffs by mouth Unknown 108(90Base) [...] - 7.5mg Tablets a day as needed Julieta, 01/10/2014 M.D. Wever 1 by mouth every 40tabs Salvador Alberto, [...] Ipratropium use qid prn for Unknown - [place]/Albuterol shortness of 09/23/2018 Sulfate breath 0.5-2.5(3)mg/3ML Solution [...] Information Available Procedures Date Code Description Status 08/19/201813838 Inject/Drain Joint/Bursa Major W/O US Completed 09/25/2016 24858 Treadmill Interp/Report Only Completed 09/25/2016 30377 Stress Test Supervsn W/Out I/R Completed 08/22/2016 29936 ECHO Transthoracic, Real-Time 2D With Doppler And Color Completed Flow 08/15/2016 00916 EKG Tracing & Interpretation Completed 07/23/2016 96393 Stress ECHO Interpretation/Report Hospital Completed 07/23/2016 64551 Treadmill Interp/Report Only Completed 07/23/2016 48011 Stress Test Supervsn W/Out I/R Completed 07/23/2016 92912 EKG, Interpretation Only Completed 07/20/2016 18024 EKG, Interpretation Only Completed 12/29/2013 11171 Arthroscopy Shoulder,W/Rotator Cuff Repair Completed 12/29/2013 85387 Arthroscopy Shoulder,W/Rotator Cuff Repair Completed 12/29/2013 55871 Arthroscopy Shoulder Debridement Extensive Completed 12/29/2013 49390 Arthroscopy Shoulder Debridement Extensive Completed 11/04/2013 85630 Rad Shoulder Comp, Min. 2 Views Completed 10/06/2013 66282 Rad Exam; Elbow, Comp Completed 09/08/2013 66815 Rad Exam; Wrist Limited, 2 Views Completed 09/08/2013 41841 Inject Tendon Sheath Or Ligament Aponeurosis Eg Plantar Completed Fascia 08/23/2013 91121 Rad Exam; Wrist Limited, 2 Views Completed 08/23/2013 02455 Rad Exam; Wrist Limited, 2 Views Completed 08/23/2013 65668 Short Arm Splint Application Completed 08/13/2013 62821 Open [place] Of Distal Radial Intra-Articular FX Or Epiphyseal Completed Septn 08/13/2013 96247 Open [place] Of Distal Radial Intra-Articular FX Or Epiphyseal Completed Septn 08/10/2013 71578 Rad Exam; Wrist Limited, 2 Views Completed 08/02/2013 81460 Rad Exam; Wrist, Comp, Min 3 Views Completed 08/02/2013 30595 CLST TRMT Distal Radial FX Completed 04/30/2012 52701 Inject/Drain Joint/Bursa Major W/O US Completed 10/31/2009 04391 Xray Knee 3 Views Completed 10/31/2009 43580 Rad Exam; Knee, Ap&L Completed 10/31/2009 11137 Inject/Drain Joint/Bursa Major W/O US Completed Encounters [...] Corbett, M25.511 Pain in right Services Of Melchor Platt. shoulder S42.201A Unsp fracture of upper end of right humerus, init W19.xxxA Unspecified fall, initial encounter Office Visit 02/25/2018 Neurohospitalist Bebeto Sherman R20.0 Anesthesia of 7:00a Meena Cooney M.D. skin R42 Dizziness and giddiness Office Visit 10/01/2016 3:00p [facility] Celio S. R07.9 Chest pain, Cardiology Paula Fuller unspecified Z87.891 Personal history of nicotine dependence F41.9 Anxiety disorder, unspecified E66.9 Obesity, unspecified Z68.33 Body mass index (BMI) 33.0-33.9, adult Office Visit 08/15/2016 3:00p [facility] Quboyd S. R07.9 Chest pain, Cardiology Paula Fuller unspecified E66.9 Obesity, unspecified Z68.32 Body mass index (BMI) 32.0-32.9, adult Z87.891 Personal history of nicotine dependence Office Visit 07/24/2016 3:20p [facility] Kaden R07.9 Chest pain, Assoc,philip Newton MD unspecified Hospitalists F45.0 Somatization disorder F41.9 Anxiety disorder, unspecified K21.9 Gastro-esophageal reflux disease without esophagitis Office Visit 07/23/2016 3:19p [facility] Kaden R07.9 Chest pain, Assoc,philip Newton MD unspecified Hospitalists K21.9 Gastro-esophageal reflux disease without esophagitis J45.909 Unspecified asthma, uncomplicated F41.9 Anxiety disorder, unspecified Office Visit 07/22/2016 [facility] Susu Wale R07.9 Chest pain, 3:21p Assoc,pc Kobi, N.P. unspecified Hospitalists J45.909 Unspecified asthma, uncomplicated K21.9 Gastro-esophageal reflux disease without esophagitis F41.9 Anxiety disorder, unspecified Office Visit 07/21/2016 [facility] Keanu R20.0 Anesthesia of 3:23p Clinic Paula Duque skin [facility], 1:12p Assoc,pc Hospitalists MD Aman unspecified R74.8 Abnormal levels of other serum enzymes K21.9 Gastro-esophageal reflux disease without esophagitis Office Visit 07/20/2016 1:11p [facility] Kaden R07.9 Chest pain, Assoc,pc MD Aman unspecified Hospitalists R74.8 Abnormal levels of other serum enzymes K21.9 Gastro-esophageal reflux disease without esophagitis F41.9 Anxiety disorder, unspecified Office Visit 11/25/2013 8:45a Orthopedic Salvador Alberto, 840.9 Sprains & Services Of C.MRamsey Mitchell Strains Shoulder & Upper Arm Unspec Office Visit 11/04/2013 10:45a Orthopedic Salvador Alberto 840.9 Sprains & Services Of C.MRamsey Mitchell Strains Shoulder & Upper Arm Unspec Office Visit 04/30/2012 2:00p Orthopedic Rodolfo 924.11 Contusion Knee Services Of C.MRamsey Nicolas M.D. 715.96 Osteoarthrosis Unspec Genlzd Or Localized Lower Leg Office Visit 11/29/2009 10:00a Orthopedic Nancy Harper, 836.3 Dislocation [facility]nee [facility] Of [place] Patella Closed [facility] Office Visit 10/31/2009 10:30a Orthopedic Nancy Harper, 716.96 Arthropathy Unspec Services Of [place] Lower Leg C.M.ASofia 844.9 Sprains & Strains Knee & Leg Unspec Plan of Treatment Future Appointment(s):10/21/2018 10:15 am - Inna Corbett M.D. at [facility]10/08/2018 1:45 pm - Jewel Pantoja PA-C at [facility]10/08/2018 1:45 pm - JINA Burks at [facility]10/08/2018 1:45 pm - Inna Corbett M.D. at [facility]09/25/2018 - Inna Corbett M.D.M25.561 Pain in right kneeFollow up:Follow up: 2 weeks after svfsatmP33.461 Effusion, right kneeM17.11 Unilateral primary osteoarthritis, right knee
[2018-10-08] MEDS: Ondansetron TAB* 4 MG PO ONE ×2 (11:39→20:05)
[2018-10-08] MEDS ORDERED: fentaNYL* 50 MCG/ML 2 ML VIAL (100 MCG VIAL) ONE ×4 (12:16→18:34)
[2018-10-08] MEDS ORDERED: KETAMINE HCL* 50 MG/ML 10 ML VIAL ONE (12:16)
[2018-10-08] MEDS ORDERED: Midazolam* 1 MG/ML 10 ML VIAL (10 MG) ONE (12:16)
[2018-10-08] MEDS ORDERED: HYDROmorphone INJ1* 1 MG/ML SYRINGE ONE ×4 (14:13→23:16)
[2018-10-08] MEDS ORDERED: ROPIVACAINE 5 MG/ML 30 ML BTL (0.5%) ONE (14:20)
[2018-10-08] MEDS ORDERED: Acetaminophen IV 1GM/100ML * 100 ML ONE (16:12)
[2018-10-08] MEDS ORDERED: EPHEDrine (Pressors)* 50 MG/ML VIAL ONE (16:13)
[2018-10-08] MEDS ORDERED: Propofol* 10 MG/ML 20 ML BTL ONE (16:13)
[2018-10-08] MEDS ORDERED: Ketorolac INJ* 30 MG/ML 1 ML VIAL ONE (16:13)
[2018-10-08] MEDS ORDERED: Bupivacaine 0.25% SDV PF* 10 ML VIAL INJ ONE (16:13)
[2018-10-08] MEDS ORDERED: hydrALAZINE IV* 20 MG/ML VIAL ONE (16:30)
[2018-10-08] MEDS ORDERED: Metoprolol Tartrate IV* 1 MG/ML 5 ML VIAL ONE (16:30)
[2018-10-08] MEDS ORDERED: Bisacodyl SUPP* 10 MG SUPP PR PRN (16:34)
[2018-10-08] MEDS ORDERED: Polyethylene Glycol 3350* 17 GM PACKET PO PRN (16:34)
[2018-10-08] MEDS ORDERED: Morphine 4 MG/ML VIAL (1 ml) 4 MG/ML VIAL IV PRN (16:34)
[2018-10-08] MEDS ORDERED: Magnesium Hydroxide LIQ* 30 ML UDC PO PRN (16:34)
[2018-10-08] MEDS ORDERED: diPHENhydraMINE IV* 50 MG/ML 1 ml VIAL (BENADRYL) IV PRN (16:34)
[2018-10-08] MEDS ORDERED: HYDROcodone/ACETAMIN 5-325 MG* 1 TAB PO PRN (16:42)
[2018-10-08] MEDS ORDERED: Albuterol HFA INHALER* 8 gm MDI INH PRN ×2 (16:42→19:44)
[2018-10-08] MEDS: fentaNYL* 50 MCG/ML 2 ML VIAL (100 MCG VIAL) IV PRN ×8 (16:46→18:48)
[2018-10-08] MEDS: HYDROmorphone INJ1* 1 MG/ML SYRINGE IV PRN ×6 (16:49→23:19)
[2018-10-08] MEDS ORDERED: Acetaminophen TAB* 325 MG PO SCH (17:00)
[2018-10-08] MEDS ORDERED: DiMENhydriNATE IV* 50 MG/ML VIAL ONE (17:22)
[2018-10-08] MEDS ORDERED: traMADol TAB* 50 MG ONE (17:49)
[2018-10-08] MEDS: traMADol TAB* 50 MG PO PRN (17:50)
[2018-10-08] MEDS ORDERED: Sertraline* 25 MG TAB PO SCH (18:00)
[2018-10-08] MEDS ORDERED: Acetaminophen TAB* 325 MG ONE (18:16)
--- NOTE | 2018-10-08 18:38 | OP ---
Operative Report - Blank - Operative Report Date of Operation: 10/08/18 Note: YASH FUENTES 1945 Date of Surgery: 10/08/18 Inna Corbett MD Bedspread Folder: Deepthi Stringer did help throughout the procedure with preparation of the knee, wound retraction, manipulation of the knee, and wound closure. Anesthesiologist: Dr. Navarrete Anesthesia Type: Gen Preoperative Diagnosis: Right severe degenerative osteoarthritis of the knee Postoperative Diagnosis: As above Procedure Performed: Right Total Knee Arthroplasty Tourniquet time: 58 minutes Complications: None Specimen: Bone and cartilage from the right knee joint sent to pathology. Hardware Used: Cemented Saleh [employer] Nephew total knee hardware was used - For the femur a size 6 right narrow legion posterior stabilized femoral component, for the tibia a size 5 right faraz II tibial baseplate, for the insert a size 9mm 5-6 posterior stabilized articular polyethylene insert, and for the patella a size 32 3-peg all poly patella. Brief History/Indication: YASH FUENTES was known in clinic and had a history of severe right knee pain and swelling. She failed conservative treatment with anti-inflammatories, pain pills, intra-articular injections and physical therapy. She elected to undergo right total knee arthroplasty due to continued pain and decreased quality of life. Radiographs showed severe end stage osteoarthritis of the knee with bone on bone contact. Informed consent was obtained from the patient. She understood the risks of surgery included but were not limited to: bleeding, infection, damage to nearby structures, intraoperative fracture, nerve palsy, failure of the hardware, early loosening, knee stiffness or loss of motion, anesthesia complications, stroke, heart attack , blood clot and . She wished to proceed. Intra-Operative Findings: Intraoperatively the patient was noted to have severe loss of cartilage in all 3 compartments of the knee. Description of the Procedure: YASH FUENTES was identified in the preanesthesia unit. Her right knee was marked as the correct operative side. Informed consent was signed and placed in the chart. The patient was taken to the operating room and placed under anesthesia without complication. A marr catheter was placed. A tourniquet was placed on the right thigh. The right lower extremity was prepped and draped in the usual sterile fashion. Preoperative time-out was made to correctly identify the patient, side and site. Appropriate intraoperative antibiotics were given within one hour of incision. Tourniquet was inflated. A midline incision was made and carried sharply down to the extensor mechanism. A new 10 blade was used to make a standard medial parapatellar arthrotomy. The patella was subluxed laterally. Electrocautery was used to dissect soft tissue off the superomedial tibia to the midsagittal plane. The knee was flexed up. The anterior horn of the lateral meniscus and the ACL were sharply incised. A drill was used to enter the distal femur. The intramedullary distal femoral cutting guide was pinned on the distal femur. The oscillating saw was used to make the distal femoral cut. The external rotation guide was pinned on the distal femur and the distal femur was sized to a size 6. The size 6 multi-cutting jig was pinned on the distal femur. The oscillating saw was used to make the appropriate 4 chamfer cuts. Next the PCL was completely released. The extramedullary tibial cutting guide was pinned on the proximal tibia and the oscillating saw was used to make the proximal tibial cut perpendicular to the mechanical axis of the tibia. The bone was carefully removed. The knee was brought out into full extension. The spacer block was placed and had excellent fit with the knee in full extension. The medial and lateral ligaments were well balanced. The flexion and extension gaps were well balanced. The knee was flexed up. Lamina wafer polishing lead worker was placed both medially and laterally. Any remaining meniscus was removed with electrocautery. Curved osteotome was used to remove any posterior osteophytes. The tibial tray and drop jorge were placed and confirmed a satisfactory tibial cut. The size 6 right narrow femoral trial was impacted onto the distal femur. This trial had excellent fit and stability. The box for the posterior stabilized implant was prepared using a box cut osteotome and a reamer. Next a tibial tray trial and 9 mm insert trial was placed. The knee was taken through a range of motion and had full extension to 130 degrees of flexion. Patellofemoral tracking was satisfactory. The patella was inverted and sized to a size 32. Three peg holes were drilled through the size 32 drill guide. The trial patella was placed and the knee was taken through a range of motion. There was satisfactory patellofemoral tracking. Multiple radiographic views were taken with C arm to ensure the medial staple from prior surgery was unmoved. There were no visible periprosthetic fractures noted. All trials were removed. The tibia was subluxed anteriorly and sized to a size 5. The proximal tibial was prepared with a size 5 keel punch. All bony cut surfaces were irrigated with sterile saline and dried. Final implants were cemented into place starting with the tibia, followed by the femur, and last the patella. A 9 mm insert trial was placed and the knee was brought into full extension. Tourniquet was turned down and the knee was copiously irrigated with sterile saline. Electrocautery was used to obtain meticulous hemostasis. Once the cement had fully cured, the insert trial was removed. Any excess cement was removed from around the hardware and capsule. Final insert chosen was a 9 mm posterior stabilized Faraz II articular insert size 5-6. Stability of the insert was checked and noted to be stable. The extensor mechanism was closed using number 1 vicryls. The rest of the incision was closed in a layered fashion using 0 and 2-0 vicryls. The skin was closed using 3-0 nylon suture. Sterile xeroform, 4x4s and webril were used to cover the incision. Azael wrap and cold pack were used to cover the dressings. The patients anesthesia was reversed without difficulty. She was taken to the PACU in stable condition. Intended weight-bearing will be as tolerated.
[2018-10-08] MEDS ORDERED: Sertraline* 100 MG TAB PO SCH (19:55)
[2018-10-08] MEDS: HYDROcodone/ACETAMIN 5-325 MG* 1 TAB PO PRN (20:18)
[2018-10-08] MEDS: Sertraline* 100 MG TAB PO SCH (21:41)
[2018-10-08] MEDS: ceFAZolin 1 GM ADVAN(*) 1 GM in NS 0.9% 50 ML* 50 ML IVPB SCH (21:41)
[2018-10-08] MEDS: Magnesium Hydroxide LIQ* 30 ML UDC PO SCH (21:41)
[2018-10-08] MEDS: Docusate CAP* 100 MG PO SCH (21:41)
[2018-10-08] MEDS ORDERED: Morphine INJ* 2 MG/ML 1 ML SYRINGE (TWO MG - NEW SYRINGE VERSION) IV PRN (22:37)
[2018-10-08] MEDS: Ondansetron INJ* 2 MG/ML VIAL IV PRN (22:44)
[2018-10-08] MEDS: traZODone TAB* 50 MG TAB PO PRN (22:44)
[2018-10-08] MEDS: Lactated Ringers 1000 ML Bag* 1,000 ML IV SCH (22:51)
[2018-10-09] MEDS: HYDROcodone/ACETAMIN 5-325 MG* 1 TAB PO PRN ×3 (00:11→23:03)
[2018-10-09] MEDS: traMADol TAB* 50 MG PO PRN ×3 (00:11→21:47)
[2018-10-09] MEDS: HYDROmorphone INJ1* 1 MG/ML SYRINGE IV PRN ×4 (03:16→20:15)
[2018-10-09] MEDS: ceFAZolin 1 GM ADVAN(*) 1 GM in NS 0.9% 50 ML* 50 ML IVPB SCH ×2 (05:15→14:11)
[2018-10-09] MEDS: Acetaminophen TAB* 325 MG PO SCH ×3 (05:16→21:52)
[2018-10-09 06:10] LABS: Hematocrit 32 % (35-47); Hemoglobin 10.5 g/dL (12.0-16.0); Mean Platelet Volume 7.7 fL (7.4-10.4); Platelet Count 245 10^3/uL (150-450)
[2018-10-09 06:20] LABS: Calcium 8.3 mg/dL (8.6-10.3); Potassium 4.1 mmol/L (3.5-5.0)
[2018-10-09] MEDS: Lactated Ringers 1000 ML Bag* 1,000 ML IV SCH ×2 (06:21→18:54)
[2018-10-09 06:25] LABS: BUN/Creatinine Ratio 16.3 (8-20); EGFR African American 72.8 (>60); EGFR Non-African American 60.2 (>60)
[2018-10-09] MEDS: Magnesium Hydroxide LIQ* 30 ML UDC PO SCH ×2 (07:57→21:47)
[2018-10-09] MEDS: Apixaban* 2.5 MG TAB PO SCH ×2 (07:57→21:48)
[2018-10-09] MEDS: Docusate CAP* 100 MG PO SCH ×2 (07:57→21:47)
[2018-10-09] MEDS: Pantoprazole TAB * 40 MG TAB PO SCH (07:57)
[2018-10-09] MEDS: Ondansetron INJ* 2 MG/ML VIAL IV PRN (09:22)
[2018-10-09] MEDS: Scopolamine 1.5 mg* PATCH TRANSDERM SCH (11:09)
[2018-10-09] MEDS: HYDROmorphone TAB* 2 MG PO PRN ×2 (11:11→15:38)
--- NOTE | 2018-10-09 11:43 | PN ---
Progress Note - Progress Note Date of Service: 10/09/18 SOAP: Subjective: OOB to chair with complaints of mild nausea, pain well controlled Objective: Vital Signs Temp Pulse Resp BP Pulse Ox 98.3 F 70 16 103/46 100 10/09/18 07:19 10/09/18 07:19 10/09/18 11:11 10/09/18 07:19 10/09/18 07:19 Laboratory Last Values Hgb 10.5 g/dL (12.0-16.0) L 10/09/18 05:49 Hct 32 % (35-47) L 10/09/18 05:49 Plt Count 245 10^3/uL (150-450) 10/09/18 05:49 MPV 7.7 fL (7.4-10.4) 10/09/18 05:49 Sodium 139 mmol/L (135-145) 10/09/18 05:49 Potassium 4.1 mmol/L (3.5-5.0) 10/09/18 05:49 Chloride 108 mmol/L (101-111) 10/09/18 05:49 Carbon Dioxide 25 mmol/L (22-32) 10/09/18 05:49 Anion Gap 6 mmol/L (2-11) 10/09/18 05:49 BUN 15 mg/dL (6-24) 10/09/18 05:49 Creatinine 0.92 mg/dL (0.51-0.95) 10/09/18 05:49 Est GFR ( Amer) 72.8 (>60) 10/09/18 05:49 Est GFR (Non-Af Amer) 60.2 (>60) 10/09/18 05:49 BUN/Creatinine Ratio 16.3 (8-20) 10/09/18 05:49 Glucose 123 mg/dL (70-100) H 10/09/18 05:49 Calcium 8.3 mg/dL (8.6-10.3) L 10/09/18 05:49 incision: c/d/i PE: NVI Assessment: s/p right TKA Plan: 1) PT/OT- WBAT 2) ABX FOR 24 HOURS POST-OP 3)Eliquis BID for DVT prophylaxis 4)Plan home tomorrow
[2018-10-09] MEDS: Ondansetron TAB* 4 MG PO PRN ×2 (15:38→21:47)
[2018-10-09] MEDS: Sertraline* 100 MG TAB PO SCH (21:47)
[2018-10-09] MEDS: traZODone TAB* 50 MG TAB PO PRN (21:47)
[2018-10-09] MEDS: Cyclobenzaprine TAB* 10 MG PO PRN (21:48)
[2018-10-10] MEDS: HYDROmorphone INJ1* 1 MG/ML SYRINGE IV PRN ×2 (00:22→04:21)
[2018-10-10] MEDS ORDERED: Ondansetron INJ* 2 MG/ML VIAL IV ONE (03:01)
[2018-10-10] MEDS: HYDROcodone/ACETAMIN 5-325 MG* 1 TAB PO PRN (03:10)
[2018-10-10] MEDS: traMADol TAB* 50 MG PO PRN ×2 (04:22→11:17)
[2018-10-10] MEDS: Lactated Ringers 1000 ML Bag* 1,000 ML IV SCH ×2 (04:25→15:44)
[2018-10-10 05:53] LABS: Hematocrit 28 % (35-47); Hemoglobin 9.4 g/dL (12.0-16.0); Mean Platelet Volume 7.6 fL (7.4-10.4); Platelet Count 188 10^3/uL (150-450)
[2018-10-10] MEDS: Acetaminophen TAB* 325 MG PO SCH ×3 (06:08→21:04)
[2018-10-10] MEDS: HYDROmorphone TAB* 2 MG PO PRN ×4 (08:01→23:04)
[2018-10-10] MEDS: Ondansetron INJ* 2 MG/ML VIAL IV PRN ×2 (08:02→15:44)
[2018-10-10] MEDS: Docusate CAP* 100 MG PO SCH ×2 (09:33→21:04)
[2018-10-10] MEDS: Apixaban* 2.5 MG TAB PO SCH ×2 (09:33→20:58)
[2018-10-10] MEDS: Pantoprazole TAB * 40 MG TAB PO SCH (09:33)
[2018-10-10] MEDS: Magnesium Hydroxide LIQ* 30 ML UDC PO SCH ×2 (09:33→20:59)
[2018-10-10] MEDS: Cyclobenzaprine TAB* 10 MG PO PRN (09:39)
[2018-10-10] MEDS ORDERED: PROCHLORPERAZINE INJ 5 MG/ML 2 ML VIAL IM PRN (10:27)
--- NOTE | 2018-10-10 11:02 | PN ---
Progress Note - Progress Note Date of Service: 10/10/18 SOAP: Subjective: Pt. is alert, severe nausea with vomiting. Objective: Vital Signs: Temp Pulse Resp BP Pulse Ox 98.6 F 63 18 114/47 94 10/10/18 08:32 10/10/18 09:32 10/10/18 09:40 10/10/18 08:32 10/10/18 09:32 Laboratory Results - last 24 hr 10/10/18 05:29 Hgb 9.4 L Hct 28 L Plt Count 188 MPV 7.6 RLE - dressing changed, inc c/d/i. distally nvi. Assessment: 73 yo F pod 2 s/p RTKA Plan: wbat rle pt/ot prn anti-emetics, pt. has scopolamine patch d/c'ed hydrocodone, will do po tramadol and dilaudid plan possible d/c to home tomorrow with vns
[2018-10-10] MEDS: PROCHLORPERAZINE INJ 5 MG/ML 2 ML VIAL IV PRN ×2 (11:17→18:05)
[2018-10-10] MEDS ORDERED: Ondansetron INJ* 2 MG/ML VIAL IV PRN (20:50)
[2018-10-10] MEDS: Sertraline* 100 MG TAB PO SCH (20:58)
[2018-10-10] MEDS ORDERED: Ondansetron TAB* 4 MG PO PRN (21:00)
--- NOTE | 2018-10-11 01:37 | CONS ---
CONSULTATION REPORT: DATE OF CONSULT: 10/10/18 CONSULTING PROVIDER: Kodi Mcgrath MD. PRIMARY SERVICE: Orthopedics, Inna Corbett MD. REASON FOR CONSULT: Hypoxia. CHIEF COMPLAINT: Nausea, vomiting, right knee pain. HISTORY OF PRESENT ILLNESS: Sahra Louie is a 73-year-old female with a past medical history of right knee osteoarthritis, asthma (mild, intermittent), anxiety/depression, GERD. She is postoperative day #2 from an elective right total knee arthroplasty with Dr. Corbett on 10/08/18. Course has been complicated by right knee pain, nausea, vomiting, and some intermittent desaturations as low as 80% on room air noticed today at 12:30 p.m., and last night desaturated to 82% at 4 a.m. She denies any cough, wheezing, chest pain. She has had some difficulty swallowing some of her larger pills such as the Colace. She vomited twice today, last around 2:30 or 3 p.m., bringing up some pieces of her lunch (eggs). She has allergy to OXYCODONE (hives), but has tolerated hydromorphone for 3 months for her previous right shoulder rotator cuff repair and she is currently getting hydromorphone tabs 2 mg p.o. q.4 hours p.r.n. and 0.5 mg IV q.4 hours p.r.n. Pain is currently 7/10 to 8/10, at worst it is 10/10. She also got a dose of tramadol, last dose at 11:17 (50 mg q.6 hours p.r.n.). Chest x-ray, 2-view (PA/lateral), which has been obtained, official read is still pending, but she has a slightly blunted left costophrenic angle. No gross infiltrate per my read. She had a chest x-ray on 09/25/18 which was read as mild obstructive lung disease. PAST MEDICAL HISTORY: 1. Asthma. 2. Anxiety/depression. 3. Osteoarthritis. 4. GERD. PAST SURGICAL HISTORY: 1. Acoustic neuroma excision. 2. Right knee arthroscopy, now right total knee arthroplasty. 3. Right shoulder rotator cuff repair. 4. Gracia's neuroma excision. 5. ORIF of the right wrist. OUTPATIENT MEDICATIONS: Include: 1. Pantoprazole. 2. Ventolin 2 puffs q.6 hours p.r.n. 3. Sertraline between 150 and 200 mg daily. 4. Trazodone as needed. ALLERGIES: OXYCODONE (hives), BEE STINGS. FAMILY HISTORY: Coronary artery disease, stroke, and cancer. SOCIAL HISTORY: She is a former smoker of 15 years total, approximately 1-1/2 packs per day, though near the end she was smoking 1 pack per day, she quit 20 years ago. She denied drug use. PHYSICAL EXAMINATION: General Appearance: In no acute distress. Vital Signs: Temperature 98.6, mostly in the 50s and 60s, last recorded was 103, saturating at 89% on room air, respiratory rate 18, blood pressure 113/52. HEENT: Normocephalic, atraumatic. Pupils are equal, round, and reactive to light. Extraocular muscles are intact. No scleral icterus. Neck: Supple. Lungs: Largely clear to auscultation bilaterally, with no wheezing or rhonchi, but slightly diminished at the right lung base. Cardiovascular: Regular rate and rhythm, with no murmurs, rubs or gallops. Abdomen: Soft, nontender, slightly distended/obese. No rebound or guarding. Extremities: Warm, well perfused. Some trace swelling in the right distal leg, none in the left leg. Neuro: Moving all extremities. Cranial nerves II through XII are intact. DIAGNOSTIC STUDIES/LAB DATA: Labs: Hemoglobin 9.4, hematocrit 28, platelets 188. Creatinine from yesterday was 0.92. Imaging: Chest x-ray from 09/25/18 shows mildly obstructive lung disease. Repeat 2-view PA/lateral today demonstrates some blunting of the left costophrenic angle, no clear infiltrate. ASSESSMENT AND PLAN: Sahra Louie is a 73-year-old female with past medical history of end-stage right knee osteoarthritis, status post right total knee arthroplasty with Dr. Corbett on 10/08/18. She is postoperative day #2. Course has been complicated by nausea, vomiting, intermittent hypoxemia, though improved currently. I am stopping her IV fluids and adding on some daily weights, adding on a BMP in the morning. She has some evidence of chronic obstructive pulmonary disease, is a former smoker, but is not bronchospastic and though she has a history of asthma, she has not used inhaler in about a year and she has no wheezing on exam, moving good air. No fevers, no cough. I think it is reasonable to give her a small dose of diuretics in the morning to help mobilize some fluids, though I do not believe she is in significant congestive heart failure exacerbation per her clinical exam. We will continue her albuterol inhaler 2 puffs 4 times a day p.r.n., but has not needed it to- date. I am adding on a CBC, instead of the hemoglobin, hematocrit, and platelets combination for tomorrow, to see if she has any leukocytosis or concern for growing infection, which otherwise she has no evidence of. She is on DVT prophylaxis as per Orthopedics, with Eliquis. Rest of the management per Orthopedics for her pain control, bowel regimen, and nausea control, though I am going to change her Zofran to 4 mg IV q.4 hours p.r.n. from q.6 hours p.r.n. She is also status post Compazine and we will continue that q.6 hours p.r.n. Thank you for this interesting consult. We will continue to follow along. [id number]/[facility] #: [id number] AVA
[2018-10-11] MEDS: HYDROmorphone TAB* 2 MG PO PRN ×5 (03:00→22:00)
[2018-10-11 05:57] LABS: ABS Basophils 0.1 10^3/ul (0-0.2); ABS Eosinophils 0.1 10^3/ul (0-0.6); ABS Lymphocytes 1.6 10^3/ul (1.0-4.8); ABS Monocytes 0.8 10^3/ul (0-0.8); ABS Neutrophils 5.2 10^3/ul (1.5-7.7); Eosinophil % 1.5 %; Hematocrit 29 % (35-47); Hemoglobin 9.8 g/dL (12.0-16.0); Lymphocyte % 20.2 %; Mean Corpuscular HGB Conc 34 g/dL (31-36); Mean Corpuscular Hemoglobin 29 pg (27-31); Mean Corpuscular Volume 86 fL (80-97); Mean Platelet Volume 7.7 fL (7.4-10.4); Platelet Count 194 10^3/uL (150-450); Red Cell Distribution Width 14 % (10.5-15); White Blood Count 7.8 10^3/uL (3.5-10.8)
[2018-10-11] MEDS ORDERED: Scopolamine PATCH Remove* 1 NOTE MISC PATCH OFF ONE (05:57)
[2018-10-11] MEDS: Acetaminophen TAB* 325 MG PO SCH ×3 (06:20→21:59)
[2018-10-11] MEDS ORDERED: Furosemide TAB* 20 MG PO ONE (08:00)
[2018-10-11] MEDS: Pantoprazole TAB * 40 MG TAB PO SCH (09:53)
[2018-10-11] MEDS: Apixaban* 2.5 MG TAB PO SCH ×2 (09:53→20:44)
[2018-10-11] MEDS: Docusate CAP* 100 MG PO SCH ×2 (09:53→20:46)
[2018-10-11] MEDS: Magnesium Hydroxide LIQ* 30 ML UDC PO SCH ×2 (09:54→20:46)
--- NOTE | 2018-10-11 14:28 | PN ---
Progress Note - Progress Note Date of Service: 10/11/18 SOAP: Subjective: Pt seen sitting in chair. States feeling much better today. Less nausea and no vomiting. Pain is decreased. Denies CP, SOB. Vital Signs: Temp Pulse Resp BP Pulse Ox 98.9 F 88 18 148/66 93 10/11/18 11:21 10/11/18 11:21 10/11/18 12:55 10/11/18 11:21 10/11/18 11:21 Laboratory Last Values WBC 7.8 10^3/uL (3.5-10.8) 10/11/18 05:24 RBC 3.40 10^6 /uL (3.70-4.87) L 10/11/18 05:24 Hgb 9.8 g/dL (12.0-16.0) L 10/11/18 05:24 Hct 29 % (35-47) L 10/11/18 05:24 MCV 86 fL (80-97) 10/11/18 05:24 MCH 29 pg (27-31) 10/11/18 05:24 MCHC 34 g/dL (31-36) 10/11/18 05:24 RDW 14 % (10.5-15) 10/11/18 05:24 Plt Count 194 10^3/uL (150-450) 10/11/18 05:24 MPV 7.7 fL (7.4-10.4) 10/11/18 05:24 Neut % (Auto) 66.8 % 10/11/18 05:24 Lymph % (Auto) 20.2 % 10/11/18 05:24 Mcmullen % (Auto) 10.7 % 10/11/18 05:24 Eos % (Auto) 1.5 % 10/11/18 05:24 Baso % (Auto) 0.8 % 10/11/18 05:24 Absolute Neuts (auto) 5.2 10^3/ul (1.5-7.7) 10/11/18 05:24 Absolute Lymphs (auto) 1.6 10^3/ul (1.0-4.8) 10/11/18 05:24 Absolute Monos (auto) 0.8 10^3/ul (0-0.8) 10/11/18 05:24 Absolute Eos (auto) 0.1 10^3/ul (0-0.6) 10/11/18 05:24 Absolute Basos (auto) 0.1 10^3/ul (0-0.2) 10/11/18 05:24 Absolute Nucleated RBC 0.0 10^3/ul 10/11/18 05:24 Nucleated RBC % 0.0 10/11/18 05:24 Sodium 139 mmol/L (135-145) 10/09/18 05:49 Potassium 4.1 mmol/L (3.5-5.0) 10/09/18 05:49 Chloride 108 mmol/L (101-111) 10/09/18 05:49 Carbon Dioxide 25 mmol/L (22-32) 10/09/18 05:49 Anion Gap 6 mmol/L (2-11) 10/09/18 05:49 BUN 15 mg/dL (6-24) 10/09/18 05:49 Creatinine 0.92 mg/dL (0.51-0.95) 10/09/18 05:49 Est GFR ( Amer) 72.8 (>60) 10/09/18 05:49 Est GFR (Non-Af Amer) 60.2 (>60) 10/09/18 05:49 BUN/Creatinine Ratio 16.3 (8-20) 10/09/18 05:49 Glucose 123 mg/dL (70-100) H 10/09/18 05:49 Calcium 8.3 mg/dL (8.6-10.3) L 10/09/18 05:49 B-Natriuretic Peptide 343 pg/mL (<=100) H 10/11/18 05:24 Objective: A&O x3, NAD, Dressing C/D/I, Calves soft and nontender, Mild edema, NVI distally. Assessment: 73 yo female s/p Right TKA POD #3 Plan: OOB, PT/OT Pain control DVT prophylaxis - Eliquis 2.5mg BID N/V - Improved. Appreciate hospitalist input D/C likely Thursday 10/12
[2018-10-11] MEDS: Sertraline* 100 MG TAB PO SCH (20:44)
[2018-10-11] MEDS: Cyclobenzaprine TAB* 10 MG PO PRN (20:59)
[2018-10-12] MEDS: HYDROmorphone TAB* 2 MG PO PRN ×3 (03:02→12:05)
[2018-10-12] MEDS: Acetaminophen TAB* 325 MG PO SCH ×2 (05:40→13:52)
[2018-10-12 06:08] LABS: Hematocrit 30 % (35-47); Hemoglobin 9.9 g/dL (12.0-16.0); Mean Platelet Volume 7.7 fL (7.4-10.4); Platelet Count 198 10^3/uL (150-450)
[2018-10-12] MEDS: Docusate CAP* 100 MG PO SCH (07:37)
[2018-10-12] MEDS: Pantoprazole TAB * 40 MG TAB PO SCH (07:38)
[2018-10-12] MEDS: Apixaban* 2.5 MG TAB PO SCH (07:38)
[2018-10-12] MEDS: Magnesium Hydroxide LIQ* 30 ML UDC PO SCH (07:38)
--- NOTE | 2018-10-12 10:28 | DS ---
Orthopedic Discharge Summary - Discharge Summary Date of Admission:10/08/18 Date of Discharge: 10/12/18 Date of Surgery: 10/08/18 Attending Orthopedic Provider: Anahi Hand Pre-operative Diagnosis: Right knee arthritis Operative Procedure: Condition of Patient: right total knee arthroplasty History: YASH FUENTES is a 73 year old F with years of increasingly severe right knee pain. Patient has failed conservative management and has elected to undergo a right total knee replacement Hospital Course: YASH was admitted to [facility] on 10/08/18. Patient underwent a right total knee replacement without complication followed by a brief recovery in PACU and transfer to the Short Stay Surgical Unit in stable condition. Our hospitalist service, physical therapy and occupational therapy also participated in this patients care. Post-op day 1: patient was alert and in no acute distress. Dressing was clean, dry and intact. Operative extremity dorsiflexion and plantarflexion intact, sensation intact to light touch distally, DP2+. Post-op day two: dressing was changed, incision was clean , dry and intact. Knee exam remained unchanged throughout her stay. Patient stayed in the hospital until 10/12/18 due to severe nausea and vomiting which resolved prior to discharge. Patient was deemed to be medically and orthopedically stable for discharge home. Physical therapy goals were met. Home Medications Medication Instructions Recorded Confirmed Type Pantoprazole TAB * Protonix TAB* 40 mg PO QAM 10/05/15 09/25/18 History Sertraline* [Zoloft*] 100 mg PO QPM 02/25/18 10/08/18 History traZODone TAB* [Desyrel TAB*] 50 mg PO BEDTIME PRN 02/25/18 09/25/18 History Albuterol Sulfate [Ventolin Hfa] 2 puff INH QID PRN 09/25/18 09/25/18 History EPINEPHrine [Epipen] 1 dose INJ DAILY PRN 09/25/18 09/25/18 History Trazodone HCl 50 mg PO 09/25/18 History diphenhydrAMINE HCl [Benadryl 25 mg PO DAILY PRN 09/25/18 09/25/18 History Allergy 25 MG CAP] Apixaban* [Eliquis*] 2.5 mg PO BID #60 tab 10/09/18 Rx Cyclobenzaprine TAB* [Flexeril 10 10 mg PO TID PRN #90 tab 10/09/18 Rx MG TAB*] Docusate CAP* [Colace Cap*] 100 mg PO BID #90 cap 10/09/18 Rx HYDROmorphone TAB* [Dilaudid TAB*] 2 mg PO Q4H PRN #42 tab MDD 6 10/09/18 Rx Discharge instruction: weight bearing as tolerated [place] [facility] [place]) Dilaudid 2mg tabs, take 1 every 4-6 hours prn pain. Hold for sedation. Wean off as soon as pain allows 2) Colace 100mg 1-3 daily as needed for constipation 3) Flexeril 10mg tabs, 1 every 8 hours prn spasms 4) Eliquis 2.5mg tabs, take 1 twice daily for 30 days. This medication increases bleeding tendency follow-up with Dr. Corbett in 2 weeks Activity: * Weight Bearing as tolerated * Continue physical therapy and occupational therapy exercises as shown * Home PT Wound care: * OK to shower on post-op day 3, no bathing, swimming, or submerging wound. * Use gentle soap, pat dry. Cover with gauze, HUGO wrap or tape. * Visiting home nurse to do wound checks. Call Orthopedic office for: * Increased drainage * Redness * Increased pain * Fever Go to ER with shortness of breath or chest pain. Diet: * Regular diet * Increase fluids and fiber to prevent constipation. * Continue to use stool softeners, call office if no bowel motion within 48 hours. Antibiotics are required prior to any dental work. FOLLOW UP: Follow up with Dr. Byrne] Within 10-14 days, call for appointment Please call our office with any questions or concerns ([phone])
[2018-10-12 11:51] VITALS: BP 121/61
[2018-10-12] MEDS: Scopolamine 1.5 mg* PATCH TRANSDERM SCH (12:06)
[2018-10-12] MEDS: Cyclobenzaprine TAB* 10 MG PO PRN (13:56)
== END 2018-10-12 14:45 | disposition home health service (06) | DRG 470 ==
LOC: AA 10:29 → SSU 19:28
PROVIDERS: ADMIT Orthopaedic Surgery Adult Reconstructive Orthopaedic Surgery; ATTEND Orthopaedic Surgery Adult Reconstructive Orthopaedic Surgery
PROC: 0SRC0J9 Replacement of Right Knee Joint with Synthetic Substitute, Cemented, Open Approach (ICD-10-PCS; principal; 2018-10-08 13:15)
DX: M17.11 Unilateral primary osteoarthritis, right knee (principal); F32.9 Major depressive disorder, single episode, unspecified; K21.9 Gastro-esophageal reflux disease without esophagitis; M25.461 Effusion, right knee; E78.5 Hyperlipidemia, unspecified; J45.20 Mild intermittent asthma, uncomplicated; F34.1 Dysthymic disorder; M25.761 Osteophyte, right knee; F41.0 Panic disorder [episodic paroxysmal anxiety]; F41.1 Generalized anxiety disorder; J44.9 Chronic obstructive pulmonary disease, unspecified; R11.2 Nausea with vomiting, unspecified; R09.02 Hypoxemia; Z87.891 Personal history of nicotine dependence; Z88.6 Allergy status to analgesic agent; Z91.030 Bee allergy status; Z82.49 Family history of ischemic heart disease and other diseases of the circulatory system; Z82.3 Family history of stroke; Z72.89 Other problems related to lifestyle; Z84.1 Family history of disorders of kidney and ureter; Z82.0 Family history of epilepsy and other diseases of the nervous system
CPT/HCPCS: 36415; 71046; 76000; 80048; 83880; 85014; 85018; 85025; 85049; 88305; 88311; A9270-GY; C1776; G8978-GP-CL; G8979-GP-CI; J0360; J0690; J0780; J1100; J1170; J1240; J1885; J2250; J2270; J2405; J2704; J2795; J3010; J3490

== ENCOUNTER 2019-04-04 15:15 | Emergency (ER) | payer MEDICARE, OTHER ==
--- NOTE | 2019-04-04 18:11 | ED ---
Shortness of Breath - HPI Summary HPI Summary: Patient is a 73 y/o F presenting to the ED for a chief complaint of SOB. Patient reports that the last 2 days, she has had productive cough and chest discomfort that she describes as tightness. Patient also admits a recent cold. Patient denies fever or headache. Patient has a PMHx of pneumonia which she states is similar to the symptoms she is experiencing now. Patient denies any aggravating or alleviating factors. Patient denies a PMHx of HTN, HLD, or cardiac problems. - History of Current Complaint Chief Complaint: EDShortnessOfBreath Time Seen by Provider: 04/04/19 17:28 Hx Obtained From: Patient Onset/Duration: Sudden Onset, Still Present Timing: Constant Current Severity: Moderate Aggravating Factors: Nothing Alleviating Factors: Nothing Associated Signs & Symptoms: Cough (Productive) - Allergy/Home Medications Allergies/Adverse Reactions: Allergies Allergy/AdvReac Type Severity Reaction Status Date / Time bee venom protein (honey bee) Allergy Rash Verified 11/27/18 15:50 hydrocodone Allergy Hives; Verified 11/27/18 15:50 Difficulty Breathing oxycodone Allergy Rash And Verified 11/27/18 15:50 Itching PMH/Surg Hx/FS Hx/Imm Hx Previously Healthy: Yes Endocrine/Hematology History: Reports: Hx Anemia Denies: Hx Anticoagulant Therapy, Hx Diabetes, Hx Thyroid Disease Cardiovascular History: Reports: Hx Angina Denies: Hx Coronary Artery Disease, Hx Hypertension, Hx Pacemaker/ICD, Hx Valvular Heart Disease, Other Cardiovascular Problems/Disorders Respiratory History: Reports: Hx Asthma - PRN INHALER, Hx Pneumonia Denies: Hx Chronic Obstructive Pulmonary Disease (COPD), Other Respiratory Problems/Disorders GI History: Reports: Hx Gastroesophageal Reflux Disease Denies: Other GI Disorders History: Reports: Hx Kidney Stones - recently, passes Denies: Hx Renal Disease Musculoskeletal History: Reports: Hx Arthritis, Hx Back Problems - also Chronic Cervical Pain, Hx Osteoporosis Denies: Other Musculoskeletal History Sensory History: Reports: Hx Contacts or Glasses, 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, Hx Hearing Problem - Deaf in the left ear, Other Sensory Impairments Denies: Hx Legally Blind, Hx Hearing Aid Opthamlomology History: Reports: Hx Contacts or Glasses, Other Sensory Impairments Denies: Hx Legally Blind EENT History: Reports: 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 [place]. 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 [place]. 08/13/13 RT WRIST FRACTURE REPAIR WITH METAL. 12/29/13 - Rt RTC REPAIR; RIGHT KNEE REPLACEMENT AUGUST [address] DR CARBAJ[address] AT [facility] [place] Hx Anesthesia Reactions: No - Immunization History Date of Tetanus Vaccine: up to date Date of Influenza Vaccine: 2016 Infectious Disease History: No Infectious Disease History: Denies: Hx Hepatitis, Hx Human Immunodeficiency Virus (HIV), Traveled Outside the [place] in Last 30 Days - Family History Known Family History: Positive: Cardiac Disease - Hx in father, Other - Hx peritoneal CA in mother - Social History Occupation: Retired Lives: With Family Alcohol Use: None Alcohol Amount: 1-2 PER MONTH Hx Substance Use: No Substance Use Type: Reports: None Hx Tobacco Use: Yes - Uses "E-cigarette" Smoking Status (MU): Former Smoker Type: Cigarettes Amount Used/How Often: 1/2-3/4 PPDX 30 YEARS OFF AND ON Length of Time of Smoking/Using Tobacco: 35 years Have You Smoked in the Last Year: No Review of Systems Negative: Fever Positive: Other - Positive chest discomfort described as tightness Positive: Shortness Of Breath, Cough - Productive with phlegm Negative: Headache All Other Systems Reviewed And Are Negative: Yes Physical Exam - Summary Physical Exam Summary: Appearance: The patient is well-nourished in no acute distress and in no acute pain. Skin: The skin is warm and dry, and skin color reflects adequate perfusion. HEENT: The head is normocephalic and atraumatic. The pupils are equal and reactive. The conjunctivae are clear and without drainage. Nares are patent and without drainage. Mouth reveals moist mucous membranes, and the throat is without erythema and exudate. The external ears are intact. The ear canals are patent and without drainage. The tympanic membranes are intact. Neck: The neck is supple with full range of motion and non-tender. There are no carotid bruits. There is no neck vein distension. Respiratory: Chest is non-tender. Breath sounds are symmetrical and equal. Crackles and bilateral wheezes. Cardiovascular: Heart is regular rate and rhythm. There is no murmur or rub auscultated. There is no peripheral edema and pulses are symmetrical and equal. Abdomen: The abdomen is soft and non-tender. There are normal bowel sounds heard in all four quadrants and there is no organomegaly palpated. Musculoskeletal: There is no back tenderness noted. Extremities are non-tender with full range of motion. There is good capillary refill. There is no peripheral edema or calf tenderness elicited. Neurological: Patient is alert and oriented to person, place and time. The patient has symmetrical motor strength in all four extremities. Cranial nerves are grossly intact. Deep tendon reflexes are symmetrical and equal in all four extremities. Psychiatric: The patient has an appropriate affect and does not exhibit any anxiety or depression. Triage Information Reviewed: Yes Vital Signs On Initial Exam: Initial Vitals Temp Pulse Resp BP Pulse Ox 98.2 F 69 18 175/89 98 04/04/19 15:22 04/04/19 15:22 04/04/19 15:22 04/04/19 15:22 04/04/19 15:22 Vital Signs Reviewed: Yes Procedures - Sedation Patient Received Moderate/Deep Sedation with Procedure: No Diagnostics - Vital Signs Vital Signs Temp Pulse Resp BP Pulse Ox 04/04/19 17:10 97.6 F 68 16 186/101 98 04/04/19 15:22 98.2 F 69 18 175/89 98 - Laboratory Lab Statement: Any lab studies that have been ordered have been reviewed, and results considered in the medical decision making process. - EKG 18:13 Cardiac Rate: Bradycardia - 58 BPM EKG Rhythm: Sinus Bradycardia ST Segment: Normal Ectopy: None Summary of EKG Findings: EKG at 18:13 shows 58 BPM with sinus bradycardia, normal ST, no ectopy, no STEMI. Reviewed by ED physician. Course/Dx - Course Course Of Treatment: She is nontoxic in appearance with stable vitals. Labs and chest x-ray are pending and I suspect that the ultimate diagnosis will be bronchitis and she will be treated symptomatically. - Diagnoses Provider Diagnoses: Dyspnea Discharge ED - Sign-Out/Discharge Documenting (check all that apply): Sign-Out Patient Signing out patient TO: Aly Watson - Discharge Plan Condition: Stable Referrals: Leland Canas MD [Primary Care Provider] - - Billing Disposition and Condition Condition: STABLE - Attestation Statements Document Initiated by Nasreen: Yes Documenting Scribe: Shannan Horne Provider For Whom Nasreen is Documenting (Include Credential): Jaylen Chisholm MD Scribe Attestation: Shannan Aguiar, scribed for Jaylen Chisholm MD on 04/04/19 at 1835. Scribe Documentation Reviewed: Yes Provider Attestation: The documentation as recorded by the Shannan wheatley accurately reflects the service I personally performed and the decisions made by me, Jaylen Chisholm MD Status of Scribe Document: Viewed
[2019-04-04 18:53] LABS: ABS Basophils 0.1 10^3/ul (0-0.2); ABS Eosinophils 0.2 10^3/ul (0-0.6); ABS Lymphocytes 2.3 10^3/ul (1.0-4.8); ABS Monocytes 0.5 10^3/ul (0-0.8); ABS Neutrophils 3.4 10^3/ul (1.5-7.7); Eosinophil % 2.9 %; Hematocrit 37 % (35-47); Hemoglobin 12.1 g/dL (12.0-16.0); Lymphocyte % 35.2 %; Mean Corpuscular HGB Conc 33 g/dL (31-36); Mean Corpuscular Hemoglobin 27 pg (27-31); Mean Corpuscular Volume 83 fL (80-97); Mean Platelet Volume 7.3 fL (7.4-10.4); Nucleated Red Blood Cells % 0.1; Platelet Count 244 10^3/uL (150-450); Red Blood Count 4.42 10^6 /uL (3.70-4.87); Red Cell Distribution Width 14 % (10-15); White Blood Count 6.5 10^3/uL (3.5-10.8)
--- NOTE | 2019-04-04 19:07 | ED ---
Progress - Progress Note Progress Note: Pt is a signout from Dr. Chisholm pending CXR. CXR shows no change from prior, pending official radiology report. Course/Dx - Course Course Of Treatment: Patient was signed out to myself by Dr. Chisholm. Patient had a chest x-ray which showed no obvious PNA per my read. Symptoms are consistent with bronchitis. Patient has a history of asthma and has an inhaler at home. Patient started on prednisone and an abx. - Diagnoses Provider Diagnoses: Bronchitis Discharge ED - Sign-Out/Discharge Documenting (check all that apply): Patient Departure, Receiving Sign-Out Receiving patient FROM: Jaylen Chisholm - Discharge Plan Condition: Stable Disposition: HOME Prescriptions: Azithromycin TAB* [Zithromax TAB (Z-MICHELLE) 250 mg #6 tabs] 500 mg PO DAILY 3 Days #6 tab predniSONE TAB* [Deltasone 20 MG TAB*] 40 mg PO DAILY 4 Days #8 tab Patient Education Materials: Acute Bronchitis (ED) Referrals: Leland Canas MD [Primary Care Provider] - Additional Instructions: Start your antibiotic and steroid in the morning. Return with worsening shortness of breath, fever, or worsening chest pain. - Billing Disposition and Condition Condition: STABLE Disposition: Home - Attestation Statements Document Initiated by Scribe: Yes Documenting Scribe: Lulú Barriga Provider For Whom Nasreen is Documenting (Include Credential): Aly Watson MD. Scribe Attestation: Lulú Aguiar, scribed for Aly Watson MD. on 04/04/19 at 2105. Scribe Documentation Reviewed: Yes Provider Attestation: The documentation as recorded by the theronibLulú santoyo accurately reflects the service I personally performed and the decisions made by , Aly Watson MD. Status of Scribe Document: Viewed
[2019-04-04 19:09] LABS: Albumin 3.8 g/dL (3.2-5.2); Albumin/Globulin Ratio 1.6 (1-3); BUN/Creatinine Ratio 21.4 (8-20); Calcium 9.1 mg/dL (8.6-10.3); EGFR African American 99.8 (>60); EGFR Non-African American 82.5 (>60); Globulin 2.4 g/dL (2-4); Total Bilirubin 0.3 mg/dL (0.2-1.0); Total Protein 6.2 g/dL (6.4-8.9)
[2019-04-04 19:11] LABS: Troponin I 0.01 ng/mL (<0.04)
[2019-04-04] MEDS ORDERED: Azithromycin TAB* 250 MG PO ONE (20:00)
[2019-04-04 20:01] VITALS: BP 157/99
== END 2019-04-04 20:07 | disposition home or self-care (01) ==
LOC: ED 15:15
DX: J40 Bronchitis, not specified as acute or chronic (principal); I10 Essential (primary) hypertension; E78.5 Hyperlipidemia, unspecified; D64.9 Anemia, unspecified; K21.9 Gastro-esophageal reflux disease without esophagitis; F41.9 Anxiety disorder, unspecified; Z96.651 Presence of right artificial knee joint; Z87.891 Personal history of nicotine dependence; Z88.5 Allergy status to narcotic agent
CPT/HCPCS: 36415; 71045; 80053; 83605; 84484; 85025; 93005; 99283; A9270-GY

== ENCOUNTER 2019-04-08 15:28 | Emergency (ER) | payer MEDICARE, OTHER ==
[2019-04-08 15:54] VITALS: BP 127/72
--- NOTE | 2019-04-08 15:57 | UC ---
Skin Complaint HPI - HPI Summary HPI Summary: Patient is a 73-year-old female presenting with complaint of abscess between breasts that has been present for approximately one month. Patient states the lump has gradually increased in size and is becoming increasingly tender to touch. Patient states she is no longer able to wear a wire bra. Denies redness or warmth of the area. Denies drainage. Denies fever and chills. Denies nausea or vomiting. Patient states she tried to be seen by her regular doctor and has not been able to get in. - History of Current Complaint Chief Complaint: UCSkin Stated Complaint: SOFT TISSSUE COMPLAINT Hx Obtained From: Patient Onset/Duration: Gradual Onset, Lasting Weeks Pain Intensity: 0 - Allergy/Home Medications Allergies/Adverse Reactions: Allergies Allergy/AdvReac Type Severity Reaction Status Date / Time bee venom protein (honey bee) Allergy Rash Verified 11/27/18 15:50 hydrocodone Allergy Hives; Verified 11/27/18 15:50 Difficulty Breathing oxycodone Allergy Rash And Verified 11/27/18 15:50 Itching PMH/Surg Hx/FS Hx/Imm Hx Other History Of: Negative For: Anticoagulant Therapy - Surgical History Surgical History: Yes Surgery Procedure, Year, and Place: RIGHT KNEE REPAIR ACL AND PCL 20 YEARS AGO- [facility] [place]. 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 08/13/13 RT WRIST FRACTURE REPAIR WITH METAL. 12/29/13 - Rt RTC REPAIR; RIGHT KNEE REPLACEMENT AUGUST 2018 DR CARBAJAL AT [facility] [place] - Family History Known Family History: Positive: Cardiac Disease - Hx in father, Other - Hx peritoneal CA in mother - Social History Alcohol Use: Occasionally Alcohol Amount: 1-2 PER MONTH Substance Use Type: None Smoking Status (MU): Former Smoker Type: Cigarettes Amount Used/How Often: 1/2-3/4 PPDX 30 YEARS OFF AND ON Length of Time of Smoking/Using Tobacco: 35 years Have You Smoked in the Last Year: No When Did the Patient Quit Smoking/Using Tobacco: 2009 - Immunization History Most Recent Influenza Vaccination: Fall 2016 Most Recent Tetanus Shot: 2014 Most Recent Pneumonia Vaccination: never Review of Systems All Other Systems Reviewed And Are Negative: No Constitutional: Positive: Negative. Negative: Fever, Chills Skin: Positive: Other - abscess between breasts Respiratory: Positive: Negative Cardiovascular: Positive: Negative Gastrointestinal: Positive: Negative. Negative: Vomiting, Nausea Neurological: Positive: Negative Physical Exam Triage Information Reviewed: Yes Appearance: Well-Appearing, No Pain Distress, Well-Nourished Vital Signs: Initial Vital Signs Temp 97.6 F 04/08/19 15:52 Pulse 65 04/08/19 15:52 Resp 18 04/08/19 15:52 BP 127/72 04/08/19 15:52 Pulse Ox 99 04/08/19 15:52 Vital Signs Reviewed: Yes Eyes: Positive: Conjunctiva Clear ENT: Positive: Hearing grossly normal Neck: Positive: Supple Respiratory Exam: Normal Respiratory: Positive: Lungs clear, Normal breath sounds, No respiratory distress Cardiovascular Exam: Normal Cardiovascular: Positive: RRR Neurological: Positive: Alert Psychological: Positive: Age Appropriate Behavior Skin: Positive: Other - 1cm firm, round, mobile cyst noted between breasts. no sign of infection or inflammation. minimally tender. Course/Dx - Course Course Of Treatment: Educated patient on cyst and abscesses. Discussed with her that there is no signs of infection or inflammation around the cyst. I&D not indictaed at this time. Instructed her that she will need to follow up with dermatology or her primary care doctor for further treatment of the cyst. Informed her she may return or follow-up with her primary care doctor if she notices signs of inflammation or infection before being able to follow up with dermatology. Patient voiced understanding and agreed with the treatment plan. - Diagnoses Provider Diagnosis: Epidermoid cyst of skin of chest Discharge ED - Sign-Out/Discharge Documenting (check all that apply): Patient Departure All imaging exams completed and their final reports reviewed: No Studies - Discharge Plan Condition: Stable Disposition: HOME Patient Education Materials: Cyst (ED) Referrals: Rashad Gordon MD [Medical Doctor] - As Soon As Possible Additional Instructions: As discussed, you have a cyst that does not appear inflamed or infected at this point in time. No urgent treatment is needed. Follow up with the dermatology referral listed below for further assessment and treatment of the cyst. Return or go to your PCP if you notice it becoming red and warm to touch, there is drainage from the area, or you experience severe pain. - Billing Disposition and Condition Condition: STABLE Disposition: Home
== END 2019-04-08 16:15 | disposition home or self-care (01) ==
LOC: UCEAST 15:28
DX: L72.8 Other follicular cysts of the skin and subcutaneous tissue (principal); Z91.030 Bee allergy status; Z88.5 Allergy status to narcotic agent; Z87.891 Personal history of nicotine dependence
CPT/HCPCS: 99211; G0463

== ENCOUNTER 2023-01-07 10:09 | Inpatient (IN) ==
[~2023-01-07 10:09] MED LIST changes: +Buffered Lidocaine 1% SYRIN 1 ml INTRADERM ONE; -Buffered Lidocaine 1% SYRIN* 1 ML/SYRINGE INTRADERM ONE; -Dexamethasone IV* 4 MG/ML 1 ML (4 MG) IV SLOW PU ONE; -Dexamethasone IV* 4 MG/ML 1 ML (4 MG) ONE; -DiMENhydriNATE IV* 50 MG/ML VIAL IV PUSH PRN; -Famotidine IV* 10 MG/ML 2 ML (20 mg) IV ONE; -Famotidine IV* 10 MG/ML 2 ML (20 mg) ONE; -Gabapentin CAP(*) 300 MG ONE; -Gabapentin CAP(*) 300 MG PO ONE; -Lactated Ringers 1000 ML Bag* 1,000 ML IV SCH; +Lactated Ringers 1000 ml BAG 1,000 ML IV SCH; -Levalbuterol 0.63MG/3ML NEB* UNIT OF USE INH PRN; +Naloxone 0.4 mg VIAL 0.4 mg/ml 1 ml VIAL IV PRN; -Naloxone* 0.4 MG/ML 1 ML VIAL IV PRN; +Ondansetron 4 mg VIAL 2 MG/ML 2 ml VIAL IV PRN; -Ondansetron ODT TAB* 4 MG ONE; -PROCHLORPERAZINE INJ 5 MG/ML 2 ML VIAL IV PRN; -Scopolamine 1.5 mg* PATCH TRANSDERM PRN; -Tranexamic Acid 1,000 MG in NS 0.9% 50 ML* (outpatient use) IV SCH; -ceFAZolin 2 GM PREMIX in ORs 2 GM/50 ML BAG IVPB ONE
[2023-01-07] MEDS ORDERED: ceFAZolin 2 GM PREMIX 2 GM/50 ML BAG ONE (10:37)
[2023-01-07] MEDS ORDERED: Propofol 10 MG/ML 20 ML BTL ONE ×3 (10:46→15:58)
[2023-01-07] MEDS ORDERED: Lidocaine 2% PF 5 ML VIAL ONE (10:46)
[2023-01-07 10:53] LABS: Rapid COVID-19 Molecular Undetected (Undetected)
[2023-01-07] MEDS ORDERED: Midazolam 2 mg/2 ml VIAL 1 mg/ml 2 ml VIAL (2 mg) ONE (12:11)
[2023-01-07] MEDS ORDERED: fentaNYL 100 mcg/2 ml 50 MCG/ML VIAL ONE ×3 (12:11→16:54)
[2023-01-07] MEDS ORDERED: ROPIVACAINE 5 MG/ML 30 ML BTL (0.5%) ONE ×2 (12:13→12:58)
[2023-01-07] MEDS ORDERED: Midazolam 5 mg/5 ml VIAL 1 mg/ml 5 ml VIAL (5 mg) ONE (13:25)
[2023-01-07] MEDS ORDERED: Glycopyrrolate IV 0.2 MG/ML 1 ML VIAL ONE (13:54)
[2023-01-07] MEDS ORDERED: Dexamethasone IV 4 MG/ML VIAL 1 ml VIAL ONE (14:21)
[2023-01-07] MEDS ORDERED: Ondansetron 4 mg VIAL 2 MG/ML 2 ml VIAL ONE (14:21)
[2023-01-07] MEDS ORDERED: Magnesium Hydroxide LIQ 30 ML UDC PO PRN (14:33)
[2023-01-07] MEDS ORDERED: Ondansetron 4 mg VIAL 2 MG/ML 2 ml VIAL IV PRN (14:33)
[2023-01-07] MEDS ORDERED: Lactulose 30 ml UDC PO PRN (14:33)
[2023-01-07] MEDS ORDERED: Morphine 2 MG/ML SYRINGE IV PRN (14:53)
[2023-01-07] MEDS ORDERED: Tranexamic Acid 1,000 MG/10 ML SDV ONE (15:29)
[2023-01-07] MEDS ORDERED: Acetaminophen IV 1 GM/100ML 1,000 MG/100 ML BAG IV ONE (15:53)
[2023-01-07] MEDS: fentaNYL 100 mcg/2 ml 50 MCG/ML VIAL IV PRN ×2 (16:55→17:21)
[2023-01-07] MEDS ORDERED: Albuterol HFA INHALER 8 gm MDI INH PRN (19:40)
[2023-01-07] MEDS: Lactated Ringers 1000 ml BAG 1,000 ML IV SCH (19:41)
[2023-01-07] MEDS: Magnesium Hydroxide LIQ 30 ML UDC PO SCH (20:30)
[2023-01-07] MEDS: ceFAZolin 1 GM ADVAN 1 GM in NS 0.9% 50 ML 50 ML IVPB SCH (22:42)
[2023-01-08] MEDS: Ondansetron ODT 4 mg TAB 4 MG TAB PO PRN ×3 (04:14→18:19)
[2023-01-08] MEDS: ceFAZolin 1 GM ADVAN 1 GM in NS 0.9% 50 ML 50 ML IVPB SCH ×2 (05:30→14:37)
[2023-01-08] MEDS: Lactated Ringers 1000 ml BAG 1,000 ML IV SCH ×3 (05:40→19:22)
[2023-01-08 06:01] LABS: Hemoglobin 10.4 g/dL (11.5-14.3); Mean Platelet Volume 8.3 fL (7.5-11.2); Platelet Count 199 10^3/uL (150-450)
[2023-01-08 06:17] LABS: Calcium 8.4 mg/dL (8.6-10.3); Creatinine, Serum 0.82 mg/dL (0.51-0.95); Potassium 4.4 mmol/L (3.5-5.0); eGFR CKD-EPI 74.5 (>60)
[2023-01-08] MEDS: Vitamin THERAPEUTIC TAB PO SCH (07:54)
[2023-01-08] MEDS: Magnesium Hydroxide LIQ 30 ML UDC PO SCH ×2 (07:59→20:37)
[2023-01-08] MEDS ORDERED: Prochlorperazine 5 mg/ml 2 ml VIAL (10 mg) IV PRN (11:27)
[2023-01-08] MEDS ORDERED: Lactated Ringers 1000 ml BAG 1,000 ML IV ONE (17:38)
[2023-01-09] MEDS: Lactated Ringers 1000 ml BAG 1,000 ML IV SCH (05:43)
[2023-01-09 06:14] LABS: Hematocrit 29.1 % (35-45); Hemoglobin 9.8 g/dL (11.5-14.3); Mean Platelet Volume 8.1 fL (7.5-11.2); Platelet Count 172 10^3/uL (150-450)
[2023-01-09] MEDS: Vitamin THERAPEUTIC TAB PO SCH (07:48)
[2023-01-09] MEDS: Magnesium Hydroxide LIQ 30 ML UDC PO SCH ×2 (07:49→22:49)
[2023-01-09 10:58] LABS: Calcium 8.5 mg/dL (8.6-10.3); Creatinine, Serum 0.88 mg/dL (0.51-0.95); Potassium 4.5 mmol/L (3.5-5.0); eGFR CKD-EPI 68.5 (>60)
[2023-01-10 06:08] LABS: Hematocrit 29.4 % (35-45); Hemoglobin 10.1 g/dL (11.5-14.3); Mean Platelet Volume 8.3 fL (7.5-11.2); Platelet Count 180 10^3/uL (150-450)
[2023-01-10] MEDS: Vitamin THERAPEUTIC TAB PO SCH (09:05)
[2023-01-10] MEDS: Magnesium Hydroxide LIQ 30 ML UDC PO SCH ×2 (09:42→22:01)
[2023-01-10] MEDS ORDERED: NS 0.9% 500 ml BAG 500 ML IV ONE (20:00)
[2023-01-10] MEDS ORDERED: Iohexol 350 (CONTRAST) 500 ML MDV IV ONE (20:11)
[2023-01-10 20:32] LABS: ABS Basophils 0.1 10^3/uL (0.0-0.1); ABS Eosinophils 0.4 10^3/uL (0.0-0.5); ABS Lymphocytes 1.4 10^3/uL (1.0-4.8); ABS Monocytes 0.7 10^3/uL (0.0-0.9); ABS Neutrophils 3.9 10^3/uL (1.5-7.6); Eosinophil % 5.9 %; Hematocrit 29.2 % (35-45); Hemoglobin 9.8 g/dL (11.5-14.3); Mean Corpuscular Hemoglobin 29.1 pg (27-33); Mean Corpuscular Hgb Conc 33.7 g/dL (31-36); Mean Corpuscular Volume 86.4 fL (80-97); Mean Platelet Volume 7.8 fL (7.5-11.2); Platelet Count 190 10^3/uL (150-450); Red Blood Count 3.38 10^6/uL (3.63-4.92); Red Cell Distribution Width 13.9 % (12-17); White Blood Count 6.5 10^3/uL (3.8-11.8)
[2023-01-10 20:48] LABS: Albumin 3.3 g/dL (3.2-5.2); Albumin/Globulin Ratio 1.6 (1-3); Calcium 8.8 mg/dL (8.6-10.3); Creatinine, Serum 0.74 mg/dL (0.51-0.95); Globulin 2.1 g/dL (2-4); Potassium 4.6 mmol/L (3.5-5.0); Total Bilirubin 0.3 mg/dL (0.2-1.0); Total Protein 5.4 g/dL (6.4-8.9); eGFR CKD-EPI 84.3 (>60)
[2023-01-11 07:51] LABS: Hematocrit 29.2 % (35-45); Hemoglobin 9.9 g/dL (11.5-14.3); Mean Platelet Volume 8.2 fL (7.5-11.2); Platelet Count 195 10^3/uL (150-450)
[2023-01-11] MEDS: Magnesium Hydroxide LIQ 30 ML UDC PO SCH ×2 (09:55→20:46)
[2023-01-11] MEDS: Vitamin THERAPEUTIC TAB PO SCH (09:56)
[2023-01-12] MEDS: Vitamin THERAPEUTIC TAB PO SCH (08:14)
[2023-01-12] MEDS: Magnesium Hydroxide LIQ 30 ML UDC PO SCH ×2 (08:15→21:18)
[2023-01-12 08:17] LABS: Hematocrit 28.8 % (35-45); Hemoglobin 9.8 g/dL (11.5-14.3); Mean Platelet Volume 7.5 fL (7.5-11.2); Platelet Count 225 10^3/uL (150-450)
[2023-01-12] MEDS: Ondansetron ODT 4 mg TAB 4 MG TAB PO PRN (16:40)
[2023-01-13] MEDS: Vitamin THERAPEUTIC TAB PO SCH (07:37)
[2023-01-13] MEDS: Magnesium Hydroxide LIQ 30 ML UDC PO SCH (07:38)
[2023-01-13] MEDS: Ondansetron ODT 4 mg TAB 4 MG TAB PO PRN (10:35)
[2023-01-13 14:24] VITALS: BP 129/69
== END 2023-01-13 17:55 | disposition home or self-care (01) | DRG 470 ==
LOC: OR 10:09 → SSU 10:09
PROVIDERS: ADMIT Orthopaedic Surgery Adult Reconstructive Orthopaedic Surgery; ATTEND Orthopaedic Surgery Adult Reconstructive Orthopaedic Surgery

== ENCOUNTER 2024-05-13 12:55 | Observation (INO) ==
[2024-05-13 15:26] LABS: ABS Basophils 0.1 10^3/uL (0.0-0.1); ABS Eosinophils 0.1 10^3/uL (0.0-0.5); ABS Lymphocytes 2.3 10^3/uL (1.0-4.8); ABS Monocytes 0.6 10^3/uL (0.0-0.9); ABS Neutrophils 4.1 10^3/uL (1.5-7.6); ABS Nucleated RBC 0.01 10^3/ul; Eosinophil % 1.9 %; Hematocrit 38.6 % (35-45); Mean Corpuscular Hemoglobin 28.8 pg (27-33); Mean Corpuscular Hgb Conc 33.7 g/dL (31-36); Mean Corpuscular Volume 85.3 fL (80-97); Mean Platelet Volume 7.8 fL (7.5-11.2); Nucleated Red Blood Cells % 0.1 %/100WBC (0.0-0.8); Platelet Count 241 10^3/uL (150-450); Red Blood Count 4.52 10^6/uL (3.63-4.92); Red Cell Distribution Width 13.7 % (12-17); White Blood Count 7.3 10^3/uL (3.8-11.8)
[2024-05-13 15:58] LABS: Albumin 4.3 g/dL (3.2-5.2); Calcium 9.3 mg/dL (8.6-10.3); Creatinine, Serum 0.82 mg/dL (0.51-0.95); Globulin 2.2 g/dL (2-4); Potassium 4.1 mmol/L (3.5-5.0); Total Bilirubin 0.4 mg/dL (0.2-1.0); Total Protein 6.5 g/dL (6.4-8.9); eGFR CKD-EPI 74.1 (>60)
[2024-05-13 17:06] LABS: High Sensitivity Troponin 1 Hr 6 pg/mL (<15)
[2024-05-13] MEDS ORDERED: Sulfur Hexaflouride MICROSPHR 25 MG VIAL IV PRN (18:39)
[2024-05-13] MEDS ORDERED: Albuterol HFA INHALER 8 gm MDI INH PRN (18:54)
[2024-05-13] MEDS: Enoxaparin 40 MG/0.4 ML SYR SUBCUT SCH (20:49)
[2024-05-14 05:58] LABS: ABS Eosinophils 0.2 10^3/uL (0.0-0.5); ABS Lymphocytes 2.2 10^3/uL (1.0-4.8); ABS Monocytes 0.6 10^3/uL (0.0-0.9); ABS Neutrophils 2.8 10^3/uL (1.5-7.6); ABS Nucleated RBC 0.01 10^3/ul; Eosinophil % 2.9 %; Hematocrit 36.8 % (35-45); Hemoglobin 12.3 g/dL (11.5-14.3); Lymphocyte % 37.8 %; Mean Corpuscular Hemoglobin 28.3 pg (27-33); Mean Corpuscular Hgb Conc 33.5 g/dL (31-36); Mean Corpuscular Volume 84.7 fL (80-97); Mean Platelet Volume 7.9 fL (7.5-11.2); Nucleated Red Blood Cells % 0.1 %/100WBC (0.0-0.8); Platelet Count 222 10^3/uL (150-450); Red Blood Count 4.34 10^6/uL (3.63-4.92); White Blood Count 5.8 10^3/uL (3.8-11.8)
[2024-05-14 06:24] LABS: Albumin 3.6 g/dL (3.2-5.2); Albumin/Globulin Ratio 1.8 (1-3); Calcium 8.4 mg/dL (8.6-10.3); Creatinine, Serum 0.83 mg/dL (0.51-0.95); Potassium 4.3 mmol/L (3.5-5.0); Total Bilirubin 0.3 mg/dL (0.2-1.0); Total Protein 5.6 g/dL (6.4-8.9)
[2024-05-14 10:07] VITALS: BP 156/61
[2024-05-14] MEDS ORDERED: Regadenoson 0.4 MG/5 ML SYRINGE ONE (13:25)
[2024-05-14] MEDS ORDERED: Aminophylline 25 MG/ML VIAL ONE (13:25)
[2024-05-14] MEDS: Aminophylline 25 MG/ML VIAL IV ONE (14:00)
== END 2024-05-14 18:00 | disposition home or self-care (01) ==
LOC: ED 12:55 → EDHOLD 12:55 → SUATTDRO 18:01 → MEDTELE 21:41
PROVIDERS: ADMIT Student in an Organized Health Care Education/Training Program; ATTEND Student in an Organized Health Care Education/Training Program